=== PATIENT | female | born 1955 | race Caucasian/White ===

== ENCOUNTER → 2016-10-06 | Outpatient (CLI) | payer MEDICARE ==
--- NOTE | 2016-10-06 16:02 | BD ---
EXAMINATION TYPE: MG DEXA axial skeleton. DATE OF EXAM: 10/06/2016 10:13 AM COMPARISON: 2014 CLINICAL HISTORY: osteopenia, BREAST CA Height: 5'6 Weight: 225 FRAX RISK QUESTIONS: Alcohol (3 or more units per day): no Family History (Parent hip fracture): no Glucocorticoids (More than 3mos): no (Ex: prednisone, prednisolone, methylprednisolone, dexamethasone, and hydrocortisone). History of Fracture in Adulthood: no Secondary Osteoporosis: 1. Type 1 Diabetes: no 2. Hyperthyroidism: no 3. Menopause before 45: yes 4. Malnutrition: no 5. Chronic liver disease: no Rheumatoid Arthritis: no Current Tobacco Use: no RISK FACTORS HISTORY OF: Surgery to Hip(right/left)/ When: total hips 2010,2011 Family History of Osteoporosis: Postmenopausal woman: MEDICATIONS: Thyroid Medications: Which medication: synthroid How Lon years Additional Medications: blood pressure, cholesterol, Lasix Additional History: breast ca 2008, rufus mastectomy EXAM MEASUREMENTS: Bone mineral densitometry was performed using the [employer] System. Bone mineral density as measured about the Lumbar spine is: ----- L1-L4(G/cm2): 0.923 T Score Values are as follows: ----- L2: -1.9 ----- L3: -2.2 ----- L4: -2.3 ----- L1-L4: -2.1 Bone mineral density has: Decreased -1.3% since study of: 09/25/2014 IMPRESSION: Osteopenia (T Score between -2.5 and -1 as noted by T score valuesL1-L4 There is slightly increased risk of fracture and the patient may be considered for treatment. Re-Screen 1-2 years. NOTE: T-SCORE=SD OF THE YOUNG ADULT MEAN.
== END | disposition home or self-care (01) ==
LOC: RADBDWWP 09:51
PROVIDERS: ATTEND Internal Medicine Hematology & Oncology
DX: Z03.89 Encounter for observation for other suspected diseases and conditions ruled out (principal); M85.80 Other specified disorders of bone density and structure, unspecified site; C50.112 Malignant neoplasm of central portion of left female breast; N95.1 Menopausal and female climacteric states
CPT/HCPCS: 77080

== ENCOUNTER 2016-11-11 10:00 | Inpatient (IN) | payer MEDICARE ==
[2016-11-05 10:16] VITALS: BMI 35.2
--- NOTE | 2016-11-10 11:18 | HP ---
DATE OF ADMISSION: CHIEF COMPLAINT: Left shoulder pain. HISTORY OF PRESENT ILLNESS: The patient is a 61-year-old, right-hand dominant female on disability who presents with progressive left shoulder pain, worsening over the past several months. She is having a difficult time with any attempted use and at night. She has had multiple previous injections along with trying medications with only partial temporary relief. PAST MEDICAL HISTORY: Significant for arthritis, breast cancer, hypertension, renal disease, depression, neuropathy, fibromyalgia. PAST SURGICAL HISTORY: Significant for previous breast surgery along with left total hip arthroplasty. CURRENT MEDICATIONS: 1. Cymbalta. 2. Femara. 3. Lasix. 4. Neurontin. 5. Synthroid. 6. Zestril. 7. Tylenol. 8. Sherborn. 9. Zocor. 10. Xanax. She has allergies to SULFA. FAMILY HISTORY: Significant for heart disease, cancer and renal disease. SOCIAL HISTORY: Significant for tobacco use in addition to social alcohol use. Sixteen-point review of systems otherwise reviewed and is noncontributory. On examination, the patient is approximately 5 feet 7 inches, 220 pounds of endomorphic habitus. HEENT exam is nonfocal. Neck is supple. She is tender about the anterior left glenohumeral joint. She has moderate crepitus. Active range of motion, forward elevation 135 degrees, external rotation with arm at side 45 degrees, internal rotation to L1. Motor strength is 5 minus over 5 for abduction and external rotation. Griffin, Neer and speed tests are positive. Her distal neurovascular exam otherwise appears intact in the left upper extremity. Previous x-rays to include AP and scapular outlet views of the along with axillary lateral views of the left shoulder shows severe glenohumeral joint osteoarthrosis with [id number] changes. The humeral head to acromial distance appears to be maintained. IMPRESSIONS: Left severe glenohumeral joint osteoarthrosis. RECOMMENDATIONS: I talked to the patient at length regarding her treatment options. At this point, she is quite symptomatic and limited because of pain related to her osteoarthrosis. After thorough discussion, she opts to proceed with surgery. We will plan to proceed with left total shoulder arthroplasty. Risks and benefits are discussed at length in layman's terms. We will institute DVT prophylaxis postoperatively. The patient underwent preoperative medical evaluation by Dr. Claire.
[~2016-11-11 10:00] MED LIST: ACETAMINOPHEN TAB 500 MG TAB PO ONE; DEXAMETHASONE SOD PHOSPHATE 10 MG/ML 1 ML VIAL IV ONE; LACTATED RINGERS 1,000 ML IV SCH; MIDAZOLAM 2 MG/2 ML VIAL IV PRN; ONDANSETRON 4 MG/2 ML VIAL IVP ONE; Pre Op ABX Message 1 EACH MISC MISCELLANE ONE; TRANEXAMIC ACID 1,000 MG in SODIUM CHLORIDE 0.9% 100 ML IVPB ONE; ceFAZolin 2 GM in SODIUM CHLORIDE 0.9% 100 ML IVPB ONE
[2016-11-11] MEDS ORDERED: LIDOCAINE 1% 20 ML VIAL (10MG/ML) FOR IV START INTRADERMA ONE (11:29)
[2016-11-11] MEDS ORDERED: LIDOCAINE 1% INJ 10MG/ML (20 ML MDV) ONE (13:58)
[2016-11-11] MEDS ORDERED: NEOSTIGMINE 1 MG/ML 10 ML VIAL ONE (13:58)
[2016-11-11] MEDS ORDERED: TRANEXAMIC ACID 1,000 MG/10 ML VIAL ONE (13:58)
[2016-11-11] MEDS ORDERED: ePHEDrine 50 MG/ML 1 ML AMP ONE (13:58)
[2016-11-11] MEDS ORDERED: fentaNYL (PF) 50 MCG/ML 2 ML AMP ONE (13:58)
[2016-11-11] MEDS ORDERED: ROCURONIUM BROMIDE 10 MG/ML 10 ML VIAL IV ONE (13:58)
[2016-11-11] MEDS ORDERED: SODIUM CHLORIDE 0.9% 100 ML BAG ONE (13:58)
[2016-11-11] MEDS ORDERED: PROPOFOL 10 MG/ML 20 ML VIAL IV ONE (13:58)
[2016-11-11] MEDS ORDERED: SUCCINYLCHOLINE CHLORIDE 100 MG/5 ML SYR IV ONE (13:58)
[2016-11-11] MEDS ORDERED: diphenhydrAMINE 50 MG/ML 1 ML VIAL ONE (13:58)
[2016-11-11] MEDS ORDERED: MIDAZOLAM 2 MG/2 ML VIAL ONE (13:58)
[2016-11-11] MEDS ORDERED: GLYCOPYRROLATE 0.2 MG/ML 2 ML VIAL ONE (13:58)
[2016-11-11] MEDS ORDERED: PHENYLEPHRINE-0.9% NACL SYG 1 MG/10 ML SYRINGE ONE (13:58)
[2016-11-11] MEDS ORDERED: ceFAZolin 1,000 MG in SODIUM CHLORIDE 0.9% 1,000 ML IRRIGATION ONE (14:40)
[2016-11-11] MEDS ORDERED: SENNOSIDES-DOCUSATE SODIUM 1 EACH TAB PO PRN (15:45)
[2016-11-11] MEDS ORDERED: HYDROmorphone 1 MG/ML 1 ML SYRINGE IVP PRN ×2 (15:45)
[2016-11-11] MEDS ORDERED: ONDANSETRON 4 MG/2 ML VIAL IVP PRN (15:45)
[2016-11-11] MEDS ORDERED: HYDROcodone/APAP 7.5-325MG 1 EACH TAB PO PRN (15:50)
--- NOTE | 2016-11-11 16:12 | P.OP ---
Date of Procedure: 11/11/16 Preoperative Diagnosis: Severe left glenohumeral joint osteoarthrosis Postoperative Diagnosis: Same Procedure(s) Performed: Left total shoulder arthroplasty Implants: [employer] unite size 10 stem, 48 mm x 18 mm eccentric humeral head, 44 mm pegged cemented glenoid component. Anesthesia: SALVADORA Surgeon: Yadiel Resendiz Aligning Inspector #1: Luis F Mehta Estimated Blood Loss (ml): 150 Pathology: other (Humeral head) Condition: stable Disposition: PACU Indications for Procedure: The patient is a 61-year-old female who presents with progressive left shoulder pain secondary to osteoarthrosis despite conservative measures. A discussion of the risks and benefits of operative intervention versus continued conservative measures was made with the patient. She opted to proceed with surgery. Operative risks to include infection, neurovascular injury, development of blood clots, possible component loosening, possible dislocation need for subsequent procedures was discussed. Informed consent was obtained. Operative Findings: As below Description of Procedure: The patient was brought to the operating room, and after induction of general anesthesia was placed in a beachchair position. The bony prominences were appropriately padded. The left upper extremity was prepped and draped in normal fashion. A deltopectoral incision was then made starting lateral to the coracoid process extending in the deltopectoral interval. The skin was incised sharply. Subcutaneous tissues were divided bluntly. The deltopectoral interval was identified and the cephalic vein gently retracted laterally with the deltoid. Subdeltoid and subacromial adhesions were bluntly dissected. 1 cm of the upper pectoralis tendon was released to facilitate exposure. The clavipectoral fascia was opened and the conjoined tendon gently retracted medially. The biceps was identified in the bicipital groove opened. The rotator interval was opened. The biceps was then tenotomized and allowed to retract distally. A lesser tuberosity osteotomy was performed with a sagittal saw. The capsule was then released off the humeral head and neck sharply. Humeral head was fully exposed. Inferior osteophytes were carefully trimmed. The shoulder was gently dislocated. A starting hole was then made in line with the humeral shaft and bicipital groove. The canal was then hand reamed up to 10 mm. There is good distal fit and chatter. The cutting guide was then placed. This was flushed superiorly with the rotator insertion. I planned on 30 of retroversion. The cutting block was pinned in place. The humeral head cut was then made. The bone was removed in one fragment. Residual inferior osteophytes were removed flush with the cortical bone. Attention was then paid towards preparing the glenoid. A Fukuda retractor was placed posteriorly and a glenoid neck retractor anteriorly. The labrum was released from the 6:00 to 12 o'clock position. The biceps was released from the superior labrum. I then did a circumferential labral release. The glenoid sized at 44 mm. A threaded guidepin was then placed. A 44 mm reamer was utilized down to a bleeding bony surface. The central peg hole was drilled. The alignment guide was placed. The peripheral peg holes were drilled. The trial 44 mm component was placed and was fully seated. There is good anterior to posterior and superior to inferior fit. Trial component was then removed. The peripheral peg holes were pressurized with cement by hand. I bone grafted the central peg. The final 44 mm peg glenoid was inserted and was fully seated. This was held firmly until the cement had sufficiently hardened. The wound was irrigated with saline. Attention was then paid towards preparing the proximal humerus. I broached in 30 of retroversion with a size 10 broach and this was fully seated. There is good metaphyseal fit and rotational stability. A trial 48 x 18 mm eccentric head was placed. The shoulder was gently reduced. It was taken through range of motion. I good stability in flexion and extension with internal and external rotation. I felt there was adequate buddhism of soft tissue tension. The shoulder was gently dislocated. The trial components were removed. I Did Pl., #2, Ethibond suture laterally for reattachment of the lesser tuberosity. The size 10 stem was assembled and then inserted again and 30 of retroversion. Again there was good rotational stability. The eccentric 48 x 18 mm humeral head was placed and gently impacted. This was appropriately positioned. The shoulder was gently reduced. Again it was taken through range of motion felt to be stable in flexion and extension with internal and external rotation. Again I felt there is adequate buddhism of soft tissue tension. The wound was then again irrigated. Lesser tuberosity was reattached with #2 Ethibond suture. The rotator interval was closed with running #2 Ethibond suture. The deltopectoral interval was closed with interrupted 2-0 Vicryl sutures. The subcutaneous tissues reapproximated interrupted 2-0 Vicryl sutures. The skin was reapproximated 3-0 subcuticular strata fix suture. Skin tape and adhesive was applied as well as a sterile dressing and sling. The patient was awoken from general anesthesia and transferred to recovery room in good condition. Blood loss was estimated at 150 mL. No complications were incurred. Sponge and needle counts were correct at the end the case.
[2016-11-11] MEDS: HYDROmorphone 1 MG/ML 1 ML SYRINGE IVP PRN ×3 (16:26→16:48)
--- NOTE | 2016-11-11 16:27 | XR ---
EXAMINATION TYPE: XR shoulder complete LT DATE OF EXAM: 11/11/2016 4:21 PM CLINICAL HISTORY: post op total shoulder arthroplasty TECHNIQUE: Portable view of the left shoulder COMPARISON: None. FINDINGS: Noted are changes of total left shoulder arthroplasty. Prosthesis appears to be well placed in alignment is in near anatomic position. IMPRESSION: Appropriate postoperative alignment.
[2016-11-11] MEDS: LACTATED RINGERS 1,000 ML IV SCH (17:07)
[2016-11-11] MEDS ORDERED: ALPRAZolam 0.25 MG TAB PO PRN (17:20)
[2016-11-11] MEDS ORDERED: BUTALB/APAP/CAFF 50-325-40MG TAB PO PRN (17:20)
[2016-11-11] MEDS: FUROSEMIDE 40 MG TAB PO SCH (18:33)
[2016-11-11] MEDS: HYDROcodone/APAP 7.5-325MG 1 EACH TAB PO PRN (18:42)
[2016-11-11] MEDS: ATORVASTATIN 10 MG TAB PO SCH (20:30)
[2016-11-11] MEDS: CYCLOBENZAPRINE 10 MG TAB PO SCH (20:31)
[2016-11-11] MEDS: GABAPENTIN 300 MG CAP PO SCH (20:31)
[2016-11-11] MEDS: ASCORBIC ACID 500 MG TAB PO SCH (20:31)
[2016-11-11] MEDS: CALCIUM CARB-VIT D 500MG-200UN 1 EACH TAB PO SCH (20:31)
[2016-11-11] MEDS: DULoxetine HCL 60 MG CAPSULE.DR PO SCH (20:32)
[2016-11-11] MEDS: LETROZOLE 2.5 MG TAB PO SCH (20:33)
[2016-11-11] MEDS: diphenhydrAMINE 25 MG CAP PO SCH (20:34)
[2016-11-11] MEDS: ceFAZolin 2 GM in SODIUM CHLORIDE 0.9% 100 ML IVPB SCH (22:41)
[2016-11-12] MEDS: HYDROcodone/APAP 7.5-325MG 1 EACH TAB PO PRN ×5 (00:06→21:20)
[2016-11-12] MEDS: hydrOXYzine PAMOATE 25 MG CAP PO PRN ×2 (00:07→05:22)
[2016-11-12] MEDS: LACTATED RINGERS 1,000 ML IV SCH (05:26)
[2016-11-12] MEDS: LEVOTHYROXINE 100 MCG TAB PO SCH (06:06)
[2016-11-12 08:19] LABS: Basophils % (A) 0 %; CH 31.3; CHCM 34.6; Eosinophils # (A) 0.1 k/uL (0-0.7); Eosinophils % (A) 1 %; HCT 35.1 % (34.0-46.0); HDW 2.33; HGB 12.1 gm/dL (11.4-16.0); Luc # (Auto) 0.28; Luc % (Auto) 3; Lymphocytes # (A) 1.4 k/uL (1.0-4.8); Lymphocytes % (A) 16 %; MCH 31.4 pg (25.0-35.0); MCHC 34.6 g/dL (31.0-37.0); MCV 90.9 fL (80.0-100.0); Mean Platelet Volume 7.9; Monocytes # (A) 0.6 k/uL (0-1.0); Monocytes % (A) 7 %; Neutrophils # (A) 6.7 k/uL (1.3-7.7); Neutrophils % (A) 73 %; RBC 3.86 m/uL (3.80-5.40); RDW 12.4 % (11.5-15.5); WBC 9.1 k/uL (3.8-10.6); WBC (Perox) 8.84
[2016-11-12] MEDS: ceFAZolin 2 GM in SODIUM CHLORIDE 0.9% 100 ML IVPB SCH (08:50)
[2016-11-12] MEDS: DULoxetine HCL 60 MG CAPSULE.DR PO SCH ×2 (08:52→21:24)
[2016-11-12] MEDS: GABAPENTIN 300 MG CAP PO SCH ×2 (08:52→21:23)
[2016-11-12] MEDS: FUROSEMIDE 40 MG TAB PO SCH ×2 (08:52→16:47)
[2016-11-12] MEDS: CHOLECALCIFEROL 1,000 UNIT TAB PO SCH (08:52)
[2016-11-12] MEDS: ASCORBIC ACID 500 MG TAB PO SCH ×2 (08:52→22:55)
[2016-11-12] MEDS: LISINOPRIL 10 MG TAB PO SCH (08:54)
[2016-11-12] MEDS: PANTOPRAZOLE 40 MG TABLET PO SCH (08:54)
[2016-11-12] MEDS ORDERED: LORATADINE-PSEUDOEPH 5-120 MG 1 EACH TAB.ER.12H PO PRN (09:00)
[2016-11-12] MEDS ORDERED: MULTIVITAMINS, THERA 1 EACH TAB PO SCH (12:00)
--- NOTE | 2016-11-12 12:35 | P.PN ---
Subjective Principal diagnosis: Status post total left shoulder arthroplasty Patient is seen today resting in her hospital bed. She appears comfortable, her pain is controlled. Patient's utilizing the arm sling at this time. She denies headaches, lightheadedness, chest pain, shortness of breath, nausea vomiting. Objective - Vital Signs Vital signs: Vital Signs Temp 98.4 F 11/12/16 07:40 Pulse 101 H 11/12/16 07:40 Resp 17 11/12/16 07:40 BP 109/73 11/12/16 07:40 Pulse Ox 95 11/12/16 07:40 Intake & Output 11/11/16 11/12/16 11/12/16 18:59 06:59 18:59 Intake Total 1301 990 360 Output Total 300 1450 400 Balance 1001 -460 -40 Weight 102.058 kg Intake: IV 1301 400 Lactated Ringers 1,000 ml 400 @ 50 mls/hr IV .Q20H ROCAEL Rx#:[id number] Oral 590 360 Output: Urine 150 1450 400 Uretheral (Ozuna) 1450 Estimated Blood Loss 150 Other: Voiding Method Indwelling Catheter Indwelling Catheter # Voids 1 - Exam Left upper extremity: incision is clean, dry and intact. Minimal ecchymosis and soft tissue swelling present of the left upper extremities. Flexion-extension is present at the elbow. extension and flexion are present at the wrist, she can move all the fingers, she can make a fist. Her radial pulses 2+. She noted some occasional paresthesias in the palmar hand. Sensation to light touch is intact throughout the upper extremity. - Labs CBC & Chem 7: 11/12/16 07:10 Assessment and Plan Plan: Assessment: 1. Postop day #1 status post left total shoulder arthroplasty Plan: 1. Pain control, continue supportive oral medications 2. Utilize arm sling 3. Daily dressing changes/ice the upper extremity 4. PT evaluation for pendular exercises 5. GI and DVT prophylaxis, continue Xarelto 10 mg 6. Medical recommendations 7. Discharge planning: Patient may be discharged home today Time with Patient: Less than 30
--- NOTE | 2016-11-12 12:37 | P.DS ---
Providers Date of admission: 11/11/16 11:20 Expected date of discharge: 11/13/16 Attending physician: Yadiel Resendiz Consults: 11/11/16 15:45 Consult Physician Routine Consulting Provider: Dale Herrera Consult Reason/Comments: Medical management Do you want consulting provider notified?: Yes Primary care physician: [facility] Course: Date of admission: 11/11/2016 Date of discharge: 11/13/2016 Admission diagnosis: Status post left total shoulder arthroplasty Discharge diagnosis: Same Attending physician: Dr. Resendiz Surgical procedures: Left total shoulder arthroplasty Brief history: Patient is a 61-year-old female with a history of progressive primary left shoulder arthritis. At this point patient has failed conservative treatment measures and has opted to proceed with a elective left total shoulder arthroplasty. Hospital course: Details of patient's surgery can be found in operative report. Patient tolerated the procedure well and was subsequently transported to orthopedic floor. Patient's orthopeidc and medical care was provided daily. Patient had daily laboratory tests performed for evaluation of overall blood counts. Patient had daily physical therapy to include strengthening range of motion as well as education with walker ambulation. Patient was treated with Xarelto for their postoperative DVT prophylaxis during their inpatient stay. Patient was noted to have a relatively uneventful postoperative course. Patient reported satisfactory pain control with oral pain medications by postoperative day 0. Patient showed satisfactory progress with physical therapy. Patient moved steadily through the program and had no difficulty meeting the goals by postoperative day 2. Given patient's otherwise satisfactory course and having met physical therapy goals, plan is to discharge patient home on postoperative day 2. Discharge condition/disposition: Patient will be discharged home in stable condition. Discharge medications: Instructions are given on resumption of patient's normal daily medications per primary care recommendation, in addition patient will be prescribed Slaughter 7.5 mg/325 mg, Colace 100 mg, Xarelto 10 mg. Discharge instructions: 1. Wound care and infection precautions, keep incision dry and covered while showering, no lotions, creams, moisturizers. No soaking, tubs, pools, hottubs. Do not scrub over the incision. 2. Utilize arm sling and pendular exercises 3. Ice and elevate when necessary. Do not exceed 20 minutes per hour with ice pack. 4. Utilize compression sleeve until seen at first follow up appointment. 5. Visiting nursing care. 6. Home physical therapy. 7. Pain meds and anticoagulants per prescription. 8. Pain medication has potential to cause constipation. Increase oral fluid and fiber intake. Contact primary care provider if you have not had a bowel movement within 48 hours after discharge 9. No anti-inflammatory medication until discussed at first post operative visit, this including Motrin, Aleve, Mobic, Diclofenac. 10. Follow up in office at 2 weeks postop with Liborio Mehta PA-C 11. Follow up with your primary care doctor 7-10 days after discharge. 12. Contact [facility] with any questions, . Procedures: Left total shoulder arthroplasty Patient Condition at Discharge: Good Plan - Discharge Summary New Discharge Prescriptions: Docusate [Colace] 100 mg PO DAILY #30 capsule HYDROcodone/APAP 7.5-325MG [Slaughter 7.5] 1 - 2 each PO Q6HR PRN #60 tab PRN Reason: Pain Rivaroxaban [Xarelto] 10 mg PO DAILY #12 tab Discharge Medication List Acetaminophen Tab [Tylenol Tab] 1,000 mg PO Q6HR PRN 12/29/14 [History] Ascorbic Acid [Vitamin C] 500 mg PO BID 12/29/14 [History] Fexofenadine/Pseudoephedrine [Calista-D 12 Hour Tablet] 1 tab PO QAM PRN [History] Furosemide [Lasix] 40 mg PO BID 12/29/14 [History] Gabapentin [Neurontin] 300 mg PO QAM 12/29/14 [History] Letrozole [Femara] 2.5 mg PO HS 12/29/14 [History] Levothyroxine Sodium [Synthroid] 100 mcg PO DAILY 12/29/14 [History] Lisinopril [Prinivil] 10 mg PO DAILY 12/29/14 [History] Multivitamins, Thera [Theragran] 1 tab PO DAILY 12/29/14 [History] Simvastatin [Zocor] 20 mg PO HS 12/29/14 [History] diphenhydrAMINE HCL [Benadryl] 25 mg PO HS 12/29/14 [History] ALPRAZolam [Xanax] 0.25 mg PO BID PRN 06/02/16 [History] Butalb/Acetaminophen/Caffeine [Fioricet 50-325-40] 1 - 2 tab PO Q8H PRN [History] Ca/D3/Mag#11/Zinc/Brush Cutter/Kevin/Bor [Caltrate 600+D Plus Tablet] 2 tab PO HS [History] Cholecalciferol [Vitamin D3] 1,000 unit PO DAILY 06/02/16 [History] DULoxetine HCL [Cymbalta] 60 mg PO BID 06/02/16 [History] Gabapentin [Neurontin] 600 mg PO HS 06/02/16 [History] HYDROcodone/APAP 7.5-325MG [Slaughter 7.5-325] 1 tab PO DAILY PRN 06/02/16 [History] Cyclobenzaprine [Flexeril] 10 mg PO HS 11/05/16 [History] Omeprazole 20 mg PO DAILY 11/05/16 [History] Rivaroxaban [Xarelto] 10 mg PO DAILY #12 tab 11/11/16 [Rx] Docusate [Colace] 100 mg PO DAILY #30 capsule 11/13/16 [Rx] HYDROcodone/APAP 7.5-325MG [Slaughter 7.5] 1 - 2 each PO Q6HR PRN #60 tab 11/13/16 [ Rx] Follow up Appointment(s)/Referral(s): Luis F Mehta PAC [PHYSICIAN WEB EDITOR] - 2 Weeks Activity/Diet/Wound Care/Special Instructions: Orthopedic Discharge Instructions: 1. Wound care and infection precautions, keep incision dry and covered while showering, no lotions, creams, moisturizers. No soaking, pools, hot tubs. Do not scrub over incision. 2. Utilize arm sling, utilized pendular exercises daily 3. Ice and elevate when necessary. Do not exceed 20 minutes per hour with ice pack. 4. Utilize compression sleeve until seen at first follow up appointment. 5. Visiting nursing care. 6. Home physical therapy. 7. Pain meds and anticoagulants per prescription. 8. Pain medication has potential to cause constipation. Increase oral fluid and fiber intake. Contact primary care provider if you have not had a bowel movement within 48 hours after discharge. 9. No anti-inflammatory medication until discussed at first post operative visit, this including Motrin, Aleve, Mobic, Diclofenac. 10. Follow up in office at 2 weeks postop with Liborio Branch PA-C 11. Follow up with your primary care doctor 7-10 days after discharge. 12. Contact [facility] with any questions, . Discharge Disposition: HOME WITH HOME HEALTH SERVICES
--- NOTE | 2016-11-12 13:06 | CONS ---
DATE OF CONSULTATION: 11/12/2016 REASON FOR CONSULTATION: Medical management requested by Dr. Resendiz. CONSULTATION: This is a very pleasant 61-year-old patient of Dr. Claire who has undergone a left total shoulder arthroplasty, having some pain in the shoulder and left elbow. No nausea or vomiting. Did tolerate her breakfast, has been out of bed. Patient's chronic stable medical conditions include fibromyalgia, GERD, hyperlipidemia, osteoarthritis, obstructive sleep apnea, uses CPAP machine, peripheral neuropathy, hepatitis C in the remote past, anxiety, depression, controlled. Denies any chest pain or shortness of breath, comfortable. REVIEW OF SYSTEMS: CONSTITUTIONAL: None. HEENT: None. RESPIRATORY: None. CARDIOVASCULAR: None. GASTROINTESTINAL: Heartburn. GENITOURINARY: None. MUSCULOSKELETAL: Pain at the surgical site. HEMATOLOGICAL: None. LYMPHATICS: None. PSYCHIATRY: Anxiety, depression, controlled. NEUROLOGICAL: Numbness and tingling in the feet. PAST MEDICAL HISTORY: Fibromyalgia, GERD, hypertension, hyperlipidemia, osteoarthritis, obstructive sleep apnea uses CPAP machine, peripheral neuropathy, hepatitis C in the remote past, bilateral breast cancer treated with surgery, anxiety, depression. PAST SURGICAL HISTORY: Bilateral mastectomy, cardiac ablation, hysterectomy, tonsillectomy, bilateral hip replacement, breast implants, bilateral mastectomy, right rotator cuff repair, mole removed from the cheek as an . Past medical history also includes migraines, SVT, hepatitis C in 1971, environmental allergies. PAST PSYCH HISTORY: Anxiety, depression. SOCIAL HISTORY: Patient stopped smoking in 1997. . Family history of cancer, type unknown. HOME MEDICATIONS: 1. Benadryl 25 mg p.o. q.h.s. 2. Zocor 20 mg p.o. q.h.s. 3. Omeprazole 20 mg p.o. daily. 4. Theragran 1 tablet p.o. daily. 5. Prinivil 10 mg p.o. daily. 6. Synthroid 100 mcg p.o. daily. 7. Femara 2.5 mg p.o. q.h.s. 8. Spencer 7.5 one tablet p.o. daily p.r.n. 9. Neurontin 600 mg p.o. q.h.s., 300 mg in the morning. 10. Lasix 40 mg p.o. b.i.d. 11. Calista-D 1 tablet p.o. q.a.m. p.r.n. 12. Cymbalta 60 mg p.o. b.i.d. 13. Flexeril 10 mg q.h.s. 14. Vitamin D3 one thousand units p.o. daily. 15. Caltrate D 2 tablets p.o. q.h.s. 16. Fioricet 1 to 2 tablets p.o. q.8 p.r.n. 17. Vitamin C 500 mg p.o. b.i.d. 18. Tylenol 1000 mg p.o. q.6 p.r.n. 19. Xanax 0.25 mg p.o. b.i.d. p.r.n. 20. Xarelto 10 mg p.o. daily. Allergies to SULFA and NSAIDS. On examination, temperature 98.4, pulse 100, respiration 17, blood pressure 111/73, pulse ox 95% on 2 L. GENERAL: Lying in bed, comfortable. EYES: Pupils equal. Conjunctivae normal. HEENT: Oral cavity normal. NECK: JVD not raised. Mass not palpable. Respiratory effort normal. LUNGS: Fair air entry. CARDIOVASCULAR: First and second sounds normal. No edema. ABDOMEN: Soft, nontender. Liver and spleen not palpable. LYMPHATIC: No lymph nodes palpable in the neck and right axillae. PSYCHIATRY: Alert and oriented x3. Mood and affect normal. EXTREMITIES: Left shoulder in a dressing, left arm is a sling. Patient has got good movement in the left hand and fingers. INVESTIGATIONS: White count 9.1, hemoglobin 12.1. ASSESSMENT: 1. Left total shoulder arthroplasty. 2. Chronic fibromyalgia. 3. Gastroesophageal reflux disease. 4. Essential hypertension. 5. Obstructive sleep apnea, uses CPAP machine. 6. Peripheral neuropathy, idiopathic. 7. Bilateral breast cancer, history of. 8. Anxiety, depression, not otherwise specified. PLAN: Continue current medication and treatment plan. DVT prophylaxis, Venodyne boots in place. Care was discussed with the patient. She should follow up with the family doctor when discharged. Thank you, Dr. Resendiz.
[2016-11-12] MEDS: traMADol 50 MG TAB PO SCH ×3 (14:25→22:55)
[2016-11-12] MEDS: LETROZOLE 2.5 MG TAB PO SCH (21:22)
[2016-11-12] MEDS: CALCIUM CARB-VIT D 500MG-200UN 1 EACH TAB PO SCH (21:22)
[2016-11-12] MEDS: CYCLOBENZAPRINE 10 MG TAB PO SCH (21:23)
[2016-11-12] MEDS: ATORVASTATIN 10 MG TAB PO SCH (21:24)
[2016-11-12] MEDS: diphenhydrAMINE 25 MG CAP PO SCH (22:55)
[2016-11-13] MEDS: HYDROcodone/APAP 7.5-325MG 1 EACH TAB PO PRN (06:01)
[2016-11-13] MEDS: LEVOTHYROXINE 100 MCG TAB PO SCH (06:01)
[2016-11-13 08:10] VITALS: BP 115/78; PULSE 100; RESP 17; TEMP 98.3
[2016-11-13] MEDS: FUROSEMIDE 40 MG TAB PO SCH (08:21)
[2016-11-13] MEDS: PANTOPRAZOLE 40 MG TABLET PO SCH (08:21)
[2016-11-13] MEDS: CHOLECALCIFEROL 1,000 UNIT TAB PO SCH (08:22)
[2016-11-13] MEDS: ASCORBIC ACID 500 MG TAB PO SCH (08:22)
[2016-11-13] MEDS: DULoxetine HCL 60 MG CAPSULE.DR PO SCH (08:22)
[2016-11-13] MEDS: GABAPENTIN 300 MG CAP PO SCH (08:22)
[2016-11-13] MEDS: LISINOPRIL 10 MG TAB PO SCH (08:23)
[2016-11-13] MEDS: traMADol 50 MG TAB PO SCH (08:27)
--- NOTE | 2016-11-13 09:17 | P.PN ---
Subjective Principal diagnosis: Status post total left shoulder arthroplasty Patient is seen today resting in her hospital bed. She appears comfortable, her pain is controlled. Patient's utilizing the arm sling at this time. She denies headaches, lightheadedness, chest pain, shortness of breath, nausea vomiting. Objective - Vital Signs Vital signs: Vital Signs Temp 98.3 F 11/13/16 07:00 Pulse 100 11/13/16 07:00 Resp 17 11/13/16 07:00 BP 115/78 11/13/16 07:00 Pulse Ox 93 L 11/13/16 07:00 Intake & Output 11/12/16 11/13/16 11/13/16 18:59 06:59 18:59 Intake Total 840 590 Output Total 1000 Balance -160 590 Weight 102.058 kg Intake: Oral 840 590 Output: Urine 1000 Other: Voiding Method Indwelling Catheter # Voids 1 - Exam Left upper extremity: incision is clean, dry and intact. Minimal ecchymosis and soft tissue swelling present of the left upper extremities. Flexion-extension is present at the elbow. extension and flexion are present at the wrist, she can move all the fingers, she can make a fist. Her radial pulses 2+. She noted some occasional paresthesias in the palmar hand. Sensation to light touch is intact throughout the upper extremity. - Labs CBC & Chem 7: 11/12/16 07:10 Assessment and Plan Plan: Assessment: 1. Postop day #2 status post left total shoulder arthroplasty Plan: 1. Pain control, will dc home on oral medication 2. Utilize arm sling 3. Daily dressing changes/ice the upper extremity 4. PT evaluation for pendular exercises 5. GI and DVT prophylaxis, continue Xarelto 10 mg 6. Medical recommendations 7. Discharge planning: Patient will be dc home today Time with Patient: Less than 30
--- NOTE | 2016-11-17 10:01 | PN ---
DATE OF SERVICE: 11/13/2016 PRESENTING COMPLAINT: Shoulder surgery. INTERVAL HISTORY: This patient was seen by me on 11/13/16 status post shoulder surgery. Doing better. Pain is better controlled. Tolerating a diet. No nausea, vomiting. Has been out of bed. Review of systems done for constitutional, cardiovascular, GI, pulmonary; relevant findings as above. Current medications are reviewed. On examination, temperature 98.3, pulse 100, respirations 17, blood pressure 115/78, pulse ox 93% on 2 L. GENERAL APPEARANCE: Sitting up, comfortable. EYES: Pupils equal. Conjunctivae normal. NECK: JVD not raised. Mass not palpable. RESPIRATORY: Effort normal. Lungs are clear. CARDIOVASCULAR: First and second sounds normal. No edema. ABDOMEN: Soft, nontender. Liver and spleen not palpable. PSYCHIATRY: Alert and oriented x3. Mood and affect normal. Left shoulder in a dressing and sling. INVESTIGATIONS: No blood work from today. ASSESSMENT: 1. Left total shoulder arthroplasty. 2. Chronic fibromyalgia. 3. Gastroesophageal reflux disease. 4. Essential hypertension. 5. Obstructive sleep apnea, uses CPAP machine. 6. Peripheral neuropathy, idiopathic. 7. Bilateral breast cancer, history of. 8. Anxiety, depression, not otherwise specified. PLAN: Continue current medication and treatment plan. Care was discussed with the patient.
== END 2016-11-13 11:20 | disposition home or self-care (01) | DRG 483 ==
LOC: 2ORMAIN 11:20 → 3SUR 15:45
PROVIDERS: ADMIT Orthopaedic Surgery; ATTEND Orthopaedic Surgery
PROC: 0RRK0JZ Replacement of Left Shoulder Joint with Synthetic Substitute, Open Approach (ICD-10-PCS; principal; 2016-11-11 13:10)
DX: M19.012 Primary osteoarthritis, left shoulder (principal); G62.9 Polyneuropathy, unspecified; I10 Essential (primary) hypertension; F32.9 Major depressive disorder, single episode, unspecified; E78.5 Hyperlipidemia, unspecified; F41.9 Anxiety disorder, unspecified; G47.33 Obstructive sleep apnea (adult) (pediatric); K21.9 Gastro-esophageal reflux disease without esophagitis; M79.7 Fibromyalgia; Z72.0 Tobacco use; Z79.01 Long term (current) use of anticoagulants; Z79.899 Other long term (current) drug therapy; Z85.3 Personal history of malignant neoplasm of breast; Z88.2 Allergy status to sulfonamides; Z98.82 Breast implant status
CPT/HCPCS: 85025; 88305; 88311; 88341; 88342; 94760

== ENCOUNTER → 2017-01-28 | Outpatient (CLI) | payer MEDICARE ==
[2017-01-28 10:23] LABS: ALT 39 U/L (9-52); AST 31 U/L (14-36); Alkaline Phosphatase 93 U/L (38-126); Anion Gap 12 mmol/L; Blood Urea Nitrogen 26 mg/dL (7-17); Calcium 10.2 mg/dL (8.4-10.2); Carbon Dioxide 29 mmol/L (22-30); Chloride 101 mmol/L (98-107); Cholesterol 204 mg/dL (<200); Glucose 94 mg/dL (74-99); HDL Cholesterol 70 mg/dL (40-60); Non-African American GFR(MDRD) 47 (>60 ml/min/1.73 sqM); Potassium 4.8 mmol/L (3.5-5.1); Sodium 142 mmol/L (137-145); Total Bilirubin 0.7 mg/dL (0.2-1.3); Total Protein 8.1 g/dL (6.3-8.2); Triglycerides 137 mg/dL (<150)
[2017-01-28 11:10] LABS: Hepatitis C Virus IgG Ab Negative (Negative); Hepatitis C Virus IgG Index 0.02
== END | disposition home or self-care (01) ==
LOC: LABWHC1 09:29
PROVIDERS: ATTEND Family Medicine
DX: E03.9 Hypothyroidism, unspecified (principal); I10 Essential (primary) hypertension
CPT/HCPCS: 36415; 80053; 80061; 84439; 84443; 84481; 86803

== ENCOUNTER → 2017-09-09 | Outpatient (CLI) | payer MEDICARE ==
[2017-09-09 11:25] LABS: HGB 14.5 gm/dL (11.4-16.0); MCH 29.7 pg (25.0-35.0); MCV 89.8 fL (80.0-100.0); Platelet Count 336 k/uL (150-450); RBC 4.89 m/uL (3.80-5.40); RDW 12.3 % (11.5-15.5); WBC 8.3 k/uL (3.8-10.6)
== END | disposition home or self-care (01) ==
LOC: LABWHC1 11:00
PROVIDERS: ATTEND Psychiatry & Neurology Psychiatry
DX: N18.3 Chronic kidney disease, stage 3 (moderate) (principal)
CPT/HCPCS: 36415; 82565; 84520; 85027

== ENCOUNTER 2018-01-22 12:17 | Emergency (ER) | payer MEDICARE ==
[2018-01-22 13:01] VITALS: RESP 18
--- NOTE | 2018-01-22 13:48 | ED ---
General Adult HPI - General Source: patient Mode of arrival: ambulatory Limitations: no limitations <Antonio Samayoa - Last Filed: 01/22/18 13:44> <Georgina Nguyen - Last Filed: 01/22/18 15:41> - General Chief complaint: Fall Stated complaint: fall head,arms, knees Time Seen by Provider: 01/22/18 13:41 - History of Present Illness Initial comments: Patient is a 62-year-old female presents emergency Department after running and falling down her driveway. She reports that she was chasing after her lawnmower that was unusual and backing down a driveway. Patient states that she fell on her knees and her left ribs. She also hit the left side of her forehead and has an abrasion and cut over the forearm. She complains of pain over the nose, and cheek area. She denies any loss of consciousness. Denies neck pain. (Georgina Nguyen) - Related Data Home Medications Medication Instructions Recorded Confirmed Fexofenadine/Pseudoephedrine 1 tab PO QAM PRN 12/29/14 01/22/18 [Calista-D 12 Hour Tablet] Furosemide [Lasix] 40 mg PO BID 12/29/14 01/22/18 Letrozole [Femara] 2.5 mg PO HS 12/29/14 01/22/18 Lisinopril [Prinivil] 10 mg PO BID 12/29/14 01/22/18 Multivitamins, Thera [Multivitamin 1 tab PO DAILY 12/29/14 01/22/18 (formulary)] diphenhydrAMINE HCL [Benadryl] 25 mg PO HS 12/29/14 01/22/18 Butalb/Acetaminophen/Caffeine 1 - 2 tab PO Q8H PRN 06/02/16 01/22/18 [Fioricet 50-325-40] DULoxetine HCL [Cymbalta] 60 mg PO BID 06/02/16 01/22/18 HYDROcodone/APAP 7.5-325MG [[place] 1 tab PO DAILY PRN 06/02/16 01/22/18 7.5-325] Flaxseed Oil [[place]-3 Flaxseed Oil] 1,000 mg PO DAILY 01/22/18 01/22/18 Levothyroxine Sodium [Synthroid] 175 mcg PO DAILY 01/22/18 01/22/18 Lutein 10 mg PO DAILY 01/22/18 01/22/18 Simvastatin [Zocor] 10 mg PO HS 01/22/18 01/22/18 Allergies Allergy/AdvReac Type Severity Reaction Status Date / Time Sulfa (Sulfonamide Allergy Unknown Verified 01/22/18 14:07 Antibiotics) Childhood NSAIDS (Non-Steroidal AdvReac Causes Verified 01/22/18 14:07 Anti-Inflamma Kidney Failure Review of Systems ROS Other: All systems not noted in ROS Statement are negative. <Antonio Samayoa - Last Filed: 01/22/18 13:44> ROS Other: All systems not noted in ROS Statement are negative. <Georgina Nguyen - Last Filed: 01/22/18 15:41> ROS Statement: Those systems with pertinent positive or pertinent negative responses have been documented in the HPI. Past Medical History Past Medical History: Cancer, Fibromyalgia, GERD/Reflux, Hyperlipidemia, Hypertension, Neurologic Disorder, Osteoarthritis (OA), Sleep Apnea/CPAP/BIPAP, Supraventricular Tachycardia (SVT), Thyroid Disorder Additional Past Medical History / Comment(s): Peripheral neuropathy; Hepatitis C 1972; breast cancer, MIGRAINES, SVT RESOLVED WITH ABLATION, USES BIPAP, CHRONIC SINUSITIS AND ENVIRONMENTAL ALLERGIES, History of Any Multi-Drug Resistant Organisms: None Reported Past Surgical History: Breast Surgery, Cardiac Ablation, EPS, Hysterectomy, Joint Replacement, Orthopedic Surgery, Tonsillectomy Additional Past Surgical History / Comment(s): Román hip replacement; breast implants; bilateral mastectomy. COLONOSCOPY, RT ROTATOR CUFF REPAIR, [facility], tls Past Anesthesia/Blood Transfusion Reactions: Motion Sickness, Postoperative Nausea & Vomiting (PONV) Past Psychological History: Anxiety, Depression Smoking Status: Former smoker Past Alcohol Use History: Occasional Past Drug Use History: None Reported - Past Family History Sister(s) Family Medical History: Cancer <Antonio Samayoa - Last Filed: 01/22/18 13:44> General Exam Limitations: no limitations <Antonio Samayoa - Last Filed: 01/22/18 13:44> General appearance: alert, in no apparent distress Head exam: Present: atraumatic, normocephalic, normal inspection, other ( Contusion over left forehead.) Eye exam: Present: normal appearance, PERRL, EOMI. Absent: scleral icterus, conjunctival injection, periorbital swelling ENT exam: Present: normal exam, mucous membranes moist Neck exam: Present: normal inspection. Absent: tenderness, meningismus, lymphadenopathy Respiratory exam: Present: normal lung sounds bilaterally Cardiovascular Exam: Present: regular rate, normal rhythm, normal heart sounds. Absent: systolic murmur, diastolic murmur, rubs, gallop, clicks GI/Abdominal exam: Present: soft, normal bowel sounds. Absent: distended, tenderness, guarding, rebound, rigid Extremities exam: Present: normal inspection, full ROM, normal capillary refill , other (Patient has abrasions over bilateral knees. Abrasion over the left elbow.). Absent: tenderness, pedal edema, joint swelling, calf tenderness Back exam: Present: normal inspection Neurological exam: Present: alert, oriented X3, CN II-XII intact Psychiatric exam: Present: normal affect, normal mood Skin exam: Present: warm, dry, intact, normal color. Absent: rash <Georgina Nguyen - Last Filed: 01/22/18 15:41> - General Exam Comments Initial Comments: Patient is a pleasant 62-year-old female. Alert and oriented. No significant distress. (Georgina Nguyen) Vital Signs 01/22/18 12:57 Temperature 98.2 F Pulse Rate 83 Respiratory 18 Rate Blood Pressure 124/76 O2 Sat by Pulse 98 Oximetry Medical Decision Making <Antonio Samayoa - Last Filed: 01/22/18 13:44> - Radiology Data Radiology results: report reviewed <Georgina Nguyen - Last Filed: 01/22/18 15:41> - Medical Decision Making 62-year-old female presents emergency Department after a fall. Has abrasions over bilateral knees and left elbow. She denies of left rib pain. She also has pain over the left cheek. Elbow x-rays are performed and showed no evidence of any fractures. Left rib x-ray shows no fracture. CT brain and C- spine and face were negative for any facial fractures or abnormalities. Patient informed of all these results. We'll discharge with follow-up with PCP. Wounds were cleaned and dressed with bandages. (Georgina Nguyen) - Radiology Data No acute cardiopulmonary process.Rib fracture. Patient's left shoulder arthroplasty appears line. Small knee joint effusions in both sides. Trichomonas departmental lost her arthritis. No acute osseous normality seen on either knee. There is no acute fracture dislocation evident the cervical spine. No acute intracranial hemorrhage, mass effect or midline shift seen. No acute facial bone fracture or dislocation is evident. No acute fracture dislocation any oral blood. (Georgina Nguyen) Disposition <Antonio Samayoa - Last Filed: 01/22/18 13:44> Is patient prescribed a controlled substance at d/c from ED?: No When asked, does pt state using other controlled substances?: No If prescribed controlled substance>3 days was MAPS reviewed?: No If opioid is for acute pain is fill amount 7 days or less?: No If Rx opioid, was Start Talking consent form obtained?: No Time of Disposition: 15:40 <Georgina Nguyen - Last Filed: 01/22/18 15:41> Clinical Impression: Fall, Contusion, multiple sites, Contusion of rib on left side, Facial contusion Disposition: HOME SELF-CARE Condition: Good Instructions: Fall Prevention for Older Adults (ED), Rib Contusion (ED) Additional Instructions: Keep the abrasions covered. Monitor for any signs of infection including redness swelling or drainage. Return to the emergency department if any alarming signs or symptoms occur. Motrin Tylenol for pain. Referrals: Yadiel Resendiz MD [STAFF PHYSICIAN] - 1-2 days
--- NOTE | 2018-01-22 14:43 | CT ---
EXAMINATION TYPE: CT brain cspine wo con, CT facial bones wo con DATE OF EXAM: 01/22/2018 COMPARISON: CT brain December 29, 2014 HISTORY: Patient complains of fall today landing on forehead/left cheek. Laceration and contusion at site. Headache and facial and neck Pain CT DLP: 1224.9 (accession [id number]), 609.4 (accession [id number]) mGycm. Automated Exposure Control for Dose Reduction was Utilized. TECHNIQUE: CT scan of the head, facial bones, and cervical spine are performed without contrast. FINDINGS: There is no acute intracranial hemorrhage, mass effect, or midline shift identified. The ventricles and sulci are within normal limits in size. The calvarium is intact. Nasal bones are intact. Orbital floors and hodgson are intact. The globes are intact bilaterally. Intra conal fat is preserved bilaterally. The zygomatic arches are intact bilaterally. The mandible is inta ct. Temporomandibular joints are maintained bilaterally. The pterygoid plates are intact. The paranas al sinuses are clear. Small area of focal soft tissue swelling over the left frontal sinus is felt pr esent near axial image 67. Cervical spine is visualized in its entirety from C1 through upper thoracic levels and demonstrates s traightened alignment without evidence of acute fracture or dislocation. There is grade 1 anterolist hesis of C3 on C4. Prevertebral soft tissue appears within normal limits. The C1-C2 articulation is within normal limits on coronal images. Osseous structures are demineralized. There is narrowing of the atlantodental interval. There is mode rate spurring and disc space narrowing C5-C6 and C6-C7 levels. Spinal canal is fairly well preserved on sagittal images. Multilevel uncovertebral facet degenerative changes seen bilaterally most promine nt at C3-C4 level on axial images. Thyroid gland is felt within normal limits. Visualized lung apices are clear. IMPRESSION: 1. There is no acute fracture or dislocation evident in the cervical spine. 2. No acute intracranial hemorrhage, mass effect, or midline shift is seen. 3. No acute facial bone fracture or dislocation is evident.
--- NOTE | 2018-01-22 15:10 | XR ---
EXAMINATION TYPE: XR elbow limited bilateral DATE OF EXAM: 01/22/2018 CLINICAL HISTORY: Fall injury with pain. TECHNIQUE: Frontal and lateral images of the bilateral elbows are obtained. COMPARISON: None FINDINGS: There is no acute fracture/dislocation evident in either elbow. No abnormal fat pad signs are seen bilaterally. There is spur from medial epicondyle distal humerus right elbow. The overlyi ng soft tissue appears unremarkable bilateral. IMPRESSION: There is no acute fracture or dislocation in either elbow.
--- NOTE | 2018-01-22 15:12 | XR ---
EXAMINATION TYPE: XR knee complete bilateral DATE OF EXAM: 01/22/2018 COMPARISON: NONE HISTORY: 62-year-old female pain after fall and gravel, abrasion to left knee TECHNIQUE: 3 views each side FINDINGS: On the right, there is tricompartmental degenerative spurring with small knee joint effusion. Extenso r mechanism is intact. No acute fracture, subluxation, or dislocation. On the left, there is medial and patellofemoral compartment osteoarthrosis with small knee joint effu art. Extensor mechanism is intact. No acute fracture, subluxation, or dislocation. IMPRESSION: Small knee joint effusions on both sides. Tricompartmental osteoarthrosis. No acute osseous abnormali ty seen on either side.
--- NOTE | 2018-01-22 15:14 | XR ---
EXAMINATION TYPE: PA chest and left rib series DATE OF EXAM: 01/22/2018 COMPARISON: NONE HISTORY: 62-year-old female pain after fall on gravel, left-sided rib pain down the left arm TECHNIQUE: 4 views FINDINGS: Heart normal size. Aorta and pulmonary vasculature within normal limits. No consolidation, pneumothor ax, or pleural effusion. There is a left total shoulder arthroplasty demonstrated. No displaced left rib fracture seen. IMPRESSION: No acute cardiopulmonary process. No displaced left rib fractures. The patient's left total shoulder arthroplasty appears aligned.
[2018-01-22] MEDS ORDERED: ACETAMINOPHEN TAB 500 MG TAB PO STA (15:40)
[2018-01-22] MEDS ORDERED: TOPICAL SKIN ADHESIVE 1 EACH AMP TOPICAL ONE (15:59)
[2018-01-22 16:49] VITALS: BP 149/82; PULSE 72; TEMP 97.8
== END 2018-01-22 16:48 | disposition home or self-care (01) ==
LOC: EC 12:17
DX: S00.83XA Contusion of other part of head, initial encounter (principal); S20.212A Contusion of left front wall of thorax, initial encounter; S80.211A Abrasion, right knee, initial encounter; S80.212A Abrasion, left knee, initial encounter; S50.312A Abrasion of left elbow, initial encounter; M79.7 Fibromyalgia; E78.5 Hyperlipidemia, unspecified; I10 Essential (primary) hypertension; M19.90 Unspecified osteoarthritis, unspecified site; F41.9 Anxiety disorder, unspecified; F32.9 Major depressive disorder, single episode, unspecified; E07.9 Disorder of thyroid, unspecified; G47.30 Sleep apnea, unspecified; Z99.89 Dependence on other enabling machines and devices; Z85.3 Personal history of malignant neoplasm of breast; Z87.891 Personal history of nicotine dependence; Z90.710 Acquired absence of both cervix and uterus; Z98.890 Other specified postprocedural states; Z96.643 Presence of artificial hip joint, bilateral; Z90.13 Acquired absence of bilateral breasts and nipples; Z79.899 Other long term (current) drug therapy; Z88.2 Allergy status to sulfonamides; Z88.6 Allergy status to analgesic agent; W01.198A Fall on same level from slipping, tripping and stumbling with subsequent striking against other object, initial encounter; Y92.014 Private driveway to single-family (private) house as the place of occurrence of the external cause
CPT/HCPCS: 70450; 70486; 72125; 99284

== ENCOUNTER → 2018-01-30 | Outpatient (CLI) | payer MEDICARE ==
--- NOTE | 2018-01-30 09:09 | MR ---
MR lumbar spine wo/w con Back Pain and Numbness for years, Gadavist 10 Gadavist Multiplanar, multiecho imaging of the lumbar spine was obtained without contrast on a 3 Ida magnet. REFERENCE:None. FINDINGS: There is a 2 cm cystic structure seen arising from the upper pole of the right kidney. Par aspinal soft tissues are otherwise unremarkable. There is a gentle levoscoliosis. There is a minimal grade 1 degenerative spondylolisthesis of L4 on L5. Alignment is otherwise unremar kable. Cord signal is unremarkable. The conus ends normally at the level of the T12-L1 disc. At T12-L1, there is minimal capsulitis in the left facet. At L1-2, there is mild, bilateral facet capsulitis. At L2-3, there is minimal capsulitis within the facets. At L3-4, there is mild disc space loss. Intervertebral foramina are well maintained. There is a mild, diffuse disc displacement. There is mild hypertrophic change and capsulitis in the facets. At L4-5, there is moderate degenerative change and capsulitis within the facets. There is a degenerat alexia grade 1 spondylolisthesis of L4 on L5. There is a small pseudodisc. The intervertebral foramina a re well maintained. At L5-S1, the intervertebral foramina are well maintained. There is moderate hypertrophic changes as well as capsulitis in the facets. There is no significant compressive discopathy. There is a tiny lip thad or hemangioma in the superior endplate of S1. IMPRESSION: 1. DIFFUSE FACET JOINT DEGENERATIVE CHANGE. 2. GRADE 1 DEGENERATIVE SPONDYLOLISTHESIS OF L4 AND L5.
== END | disposition home or self-care (01) ==
LOC: RADMRIMAIN 07:18
PROVIDERS: ATTEND Psychiatry & Neurology Neurology
DX: M43.16 Spondylolisthesis, lumbar region (principal); M47.816 Spondylosis without myelopathy or radiculopathy, lumbar region
CPT/HCPCS: 82565; 84520; 72158; 36415; A9581

== ENCOUNTER → 2018-05-06 | Outpatient (CLI) | payer MEDICARE ==
--- NOTE | 2018-05-06 09:39 | US ---
EXAMINATION TYPE: US abdomen complete DATE OF EXAM: 05/06/2018 COMPARISON: MRI lumbar spine January 30, 2018. CLINICAL HISTORY: R10.11 right upper quadrant pain. Pt states generalized ABD pain and back pain EXAM MEASUREMENTS: Liver Length: 15.7 cm Gallbladder Wall: 0.2 cm CBD: 0.3 cm Spleen: 9.1 cm Right Kidney: 9.4 x 4.8 x 4.7 cm Left Kidney: 8.3 x 4.4 x 3.8 cm Pancreas: wnl Liver: Cyst superior right lobe= 1.5 x 1.2 x 1.3 cm, otherwise appeared wnl Gallbladder: wnl Evidence for sonographic Tucker's sign: No CBD: wnl Spleen: wnl Right Kidney: Cyst upper pole= 1.6 x 1.4 x 1.8 cm Left Kidney: Small in size, two calcifications at upper pole= 0.5cm and 0.6cm in size Upper IVC: wnl Abd Aorta: wnl The visualized liver is homogenous. There is simple appearing thin-walled 1.4 cm cyst in the right he patic lobe aren't by technologist. The intrahepatic portion of the IVC and visualized abdominal aort a are within normal limits. There is no evidence of cholelithiasis. Common bile duct is unremarkabl e. The visualized portions of the pancreas are homogenous. The spleen is unremarkable. Kidneys are symmetric and free of hydronephrosis. There is simple appearing 1.6 cm exophytic cyst upper pole lev el right kidney correlates with recent MRI axial image 30. Suspect 2 nonobstructing left-sided renal calculi upper pole level. IMPRESSION: No significant finding is seen to account for patient's symptoms of right upper quadrant pain into back. Suspect nonobstructing left renal calculi. This can be confirmed with noncontrast CT if desired.
== END ==
LOC: RADUSWWP 07:00
PROVIDERS: ATTEND Family Medicine
DX: R10.11 Right upper quadrant pain (principal)
CPT/HCPCS: 76700

== ENCOUNTER → 2018-10-12 | Outpatient (CLI) | payer MEDICARE ==
--- NOTE | 2018-10-12 10:08 | BD ---
EXAMINATION TYPE: Axial Bone Density DATE OF EXAM: 10/12/2018 COMPARISON: 2017 CLINICAL HISTORY: osteopenia. Postmenopausal female. Screening. Height: 5'7 Weight: 204 FRAX RISK QUESTIONS: Secondary Osteoporosis: 3. Menopause before 45: y RISK FACTORS HISTORY OF: Surgery to /Hip(right/left)/): total hips rufus When: 2010 Family History of Osteoporosis: y Postmenopausal woman: y MEDICATIONS: Thyroid Medications: Which medication: Synthroid How Lon years Additional Medications: blood pressure, cholesterol, depression, cancer inhibitor Additional History: rufus breast cancer, 2008 EXAM MEASUREMENTS: Bone mineral densitometry was performed using the [employer]. Bone mineral density as measured about the Lumbar spine is: ----- L1-L4(G/cm2): 0.891 T Score Values are as follows: ----- L2: -1.8 ----- L3: -2.1 ----- L4: -2.8 ----- L1-L4: -2.4 Bone mineral density has: Decreased -2.3% since study of: 10/06/2016 Bone mineral density about the L Wrist (g/cm2): 0.522 T Score values are as follows: -----Dist. R+U: -2.9 -----Prox. R+U: -2.5 -----Radius total: -2.5 IMPRESSION: Osteoporosis (T Score less than -2.5) with regards to the right radius. There is increased fracture risk and therapy is usually indicated based on age. Re-Screen 1-2 years. NOTE: T-SCORE=SD OF THE YOUNG ADULT MEAN.
== END | disposition home or self-care (01) ==
LOC: RADBDWWP 09:05
PROVIDERS: ATTEND Internal Medicine Hematology & Oncology
DX: M81.0 Age-related osteoporosis without current pathological fracture (principal); C50.112 Malignant neoplasm of central portion of left female breast; N95.1 Menopausal and female climacteric states; Z79.890 Hormone replacement therapy; Z88.2 Allergy status to sulfonamides
CPT/HCPCS: 77080

== ENCOUNTER → 2019-04-28 | Outpatient (CLI) | payer MEDICARE | END | disposition home or self-care (01) | LOC: LABWHC1 15:27 | PROVIDERS: ATTEND Orthopaedic Surgery | DX: Z01.812 Encounter for preprocedural laboratory examination (principal) | CPT/HCPCS: 87070 ==

== ENCOUNTER 2019-05-09 07:56 | Day surgery (SDC) | payer MEDICARE ==
[2019-05-06 08:31] VITALS: BMI 32.1
[~2019-05-09 07:56] MED LIST changes: -ACETAMINOPHEN TAB 500 MG TAB PO ONE; -DEXAMETHASONE SOD PHOSPHATE 10 MG/ML 1 ML VIAL IV ONE; +LIDOCAINE 1% 20 ML VIAL (10MG/ML) FOR IV START INTRADERMA PRN; -MIDAZOLAM 2 MG/2 ML VIAL IV PRN; -ONDANSETRON 4 MG/2 ML VIAL IVP ONE; -Pre Op ABX Message 1 EACH MISC MISCELLANE ONE; -TRANEXAMIC ACID 1,000 MG in SODIUM CHLORIDE 0.9% 100 ML IVPB ONE; -ceFAZolin 2 GM in SODIUM CHLORIDE 0.9% 100 ML IVPB ONE
[2019-05-09 08:37] VITALS: TEMP 98.7
[2019-05-09] MEDS ORDERED: PROPOFOL 10 MG/ML 20 ML VIAL IV ONE (08:58)
[2019-05-09] MEDS ORDERED: LIDOCAINE 1% INJ 10MG/ML (20 ML MDV) ONE (08:58)
--- NOTE | 2019-05-09 09:33 | P.PCN ---
Date of Procedure: 05/09/19 Description of Procedure: BRIEF HISTORY: Patient is a 64-year-old pleasant female scheduled for an elective colonoscopy as a part of surveillance after a personal history of colon polyps. Last colonoscopy 5 years ago. She denies any change in bowel habits, constipation, diarrhea, abdominal pain or blood per rectum. PROCEDURE PERFORMED: Colonoscopy with polypectomy. PREOPERATIVE DIAGNOSIS: Personal history of colon polyps, last colonoscopy 5 years ago. ESTIMATED BLOOD LOSS: Minimal. IV sedation per Anesthesia. PROCEDURE: After informed consent was obtained, the patient, was brought into the endoscopy unit. IV sedation was administered by Anesthesia under continuous monitoring. Digital rectal examination was normal. Initially the Olympus CF-190 flexible video colonoscope was then inserted in the rectum, gradually advanced into the cecum without any difficulty. Careful examination was performed as the scope was gradually being withdrawn. Ileocecal valve and the appendiceal orifice were visualized and appeared normal. Prep was excellent. Mucosa of the cecum, ascending colon, transverse colon, descending colon, sigmoid colon, and rectum appeared normal. 2 sessile polyps measuring 2 mm and 3 mm removed with cold forcep polypectomy from the ascending colon. One sessile polyp measuring 2 mm were removed with cold forcep polypectomy from the transverse colon. Retroflexion was performed in the rectum and no lesions were seen low-grade internal hemorrhoids noted. The patient tolerated the procedure well. IMPRESSION: 3 diminutive polyps removed with cold forcep, 2 from the ascending colon and one from the transverse colon. Otherwise, normal-appearing colon from rectum to cecum. RECOMMENDATIONS: Findings of this examination were discussed with the patient and her . Okay to resume diet. Okay to resume medications. Await pathology from polypectomies. Anticipate repeat colonoscopy in 3-5 years pending pathology from polypectomies.
[2019-05-09 09:37] VITALS: RESP 16
[2019-05-09 10:20] VITALS: BP 124/71; PULSE 67
== END 2019-05-09 10:25 | disposition home or self-care (01) ==
LOC: ORWHC2ENDO 07:56
PROVIDERS: ATTEND Internal Medicine
DX: Z12.11 Encounter for screening for malignant neoplasm of colon (principal); D12.2 Benign neoplasm of ascending colon; K63.5 Polyp of colon; Z86.010 Personal history of colon polyps; K64.8 Other hemorrhoids; I10 Essential (primary) hypertension; E78.5 Hyperlipidemia, unspecified; M79.7 Fibromyalgia; E07.9 Disorder of thyroid, unspecified; M19.90 Unspecified osteoarthritis, unspecified site; K21.9 Gastro-esophageal reflux disease without esophagitis; G47.33 Obstructive sleep apnea (adult) (pediatric); Z99.89 Dependence on other enabling machines and devices; Z87.891 Personal history of nicotine dependence; Z96.643 Presence of artificial hip joint, bilateral; Z96.612 Presence of left artificial shoulder joint; Z90.13 Acquired absence of bilateral breasts and nipples; Z98.82 Breast implant status; Z79.890 Hormone replacement therapy; Z79.891 Long term (current) use of opiate analgesic; Z79.899 Other long term (current) drug therapy; Z88.6 Allergy status to analgesic agent; Z88.2 Allergy status to sulfonamides; Z91.09 Other allergy status, other than to drugs and biological substances
CPT/HCPCS: 88305; 45380; J2001; J2704; 45385

== ENCOUNTER 2019-05-24 06:35 | Inpatient (IN) | payer MEDICARE ==
--- NOTE | 2019-05-23 09:52 | HP ---
HISTORY AND PHYSICAL CHIEF COMPLAINT: Right shoulder pain. HISTORY OF PRESENT ILLNESS: The patient is a 64-year-old, right-hand dominant, retired female who presents with progressive right shoulder pain for the past several years. It has worsened recently. She is having pain with overhead use and at night. She had a previous arthroscopy in 2011. PAST MEDICAL HISTORY: Significant for breast cancer, hypertension, hepatitis, renal disease, depression, arthritis, neuropathy, fibromyalgia. PAST SURGICAL HISTORY: Significant for left total shoulder arthroplasty, right shoulder arthroscopy, left total hip arthroplasty and previous breast surgery. CURRENT MEDICATIONS: 1. Cymbalta. 2. Synthroid. 3. [place]. 4. Fioricet. 5. Lasix. 6. Lisinopril. 7. Simvastatin. 8. Xanax. ALLERGIES: ANTI-INFLAMMATORIES and SULFA. FAMILY HISTORY: Significant for renal disease, heart disease and cancer. SOCIAL HISTORY: Significant for previous tobacco use in addition to social alcohol use. 16 POINT REVIEW OF SYSTEMS: Otherwise reviewed and is noncontributory. PHYSICAL EXAMINATION: On examination, patient is approximately 5 foot 7, 210 pounds of endomorphic habitus. HEENT: Exam is nonfocal. Neck: Supple. She is tender about the anterior glenohumeral joint of the right shoulder. She has moderate subacromial crepitus. Active range of motion right shoulder, forward elevation 145 degrees, external rotation with arm at side 55 degrees, internal rotation to T12. Motor strength is 5/5 for abduction and external rotation. Impingement test, and Neer test are positive. Her distal neurovascular exam appears intact in the right upper extremity. Previous x-rays of the right shoulder obtained in the office show severe glenohumeral joint osteoarthrosis with [id number] changes. The humeral head to acromial distance appears maintained. IMPRESSION: 1. Severe right glenohumeral joint osteoarthrosis. 2. History of renal disease and hypertension. PLAN: I talked to the patient at length regarding her condition and treatment options. At this point she is quite symptomatic and opts to proceed with surgery. We will plan to proceed with right total shoulder arthroplasty. She underwent preoperative medical evaluation by Dr. Claire. We will institute DVT prophylaxis postoperatively. MMODL / IJN: [id number] /
[~2019-05-24 06:35] MED LIST changes: +DEXAMETHASONE SOD PHOSPHATE 10 MG/ML 1 ML VIAL IV ONE; +HYDROmorphone 0.5 MG/0.5 ML SYRINGE IVP PRN; -LACTATED RINGERS 1,000 ML IV SCH; +MELOXICAM 7.5 MG TAB PO ONE; +MIDAZOLAM 2 MG/2 ML VIAL IV PRN; +ONDANSETRON 4 MG/2 ML VIAL IVP ONE; +SCOPOLAMINE 1.5MG/72HR PATCH TRANSDERM ONE; +TRANEXAMIC ACID 1,000 MG in SODIUM CHLORIDE 0.9% 100 ML IVPB ONE
[2019-05-24] MEDS: LACTATED RINGERS 1,000 ML IV SCH (07:29)
[2019-05-24] MEDS: ACETAMINOPHEN TAB 500 MG TAB PO ONE ×2 (07:30→07:52)
[2019-05-24] MEDS ORDERED: ROCURONIUM BROMIDE 10 MG/ML 10 ML VIAL IV ONE (08:12)
[2019-05-24] MEDS ORDERED: GLYCOPYRROLATE 0.2 MG/ML 2 ML VIAL ONE (08:12)
[2019-05-24] MEDS ORDERED: PHENYLEPHRINE-0.9% NACL SYG 1 MG/10 ML SYRINGE ONE (08:12)
[2019-05-24] MEDS ORDERED: PROPOFOL 10 MG/ML 20 ML VIAL IV ONE (08:12)
[2019-05-24] MEDS ORDERED: NEOSTIGMINE 1 MG/ML 10 ML VIAL ONE (08:12)
[2019-05-24] MEDS ORDERED: SUCCINYLCHOLINE CHLORIDE 100 MG/5 ML SYR IV ONE (08:12)
[2019-05-24] MEDS ORDERED: fentaNYL (PF) 50 MCG/ML 2 ML AMP ONE (08:12)
[2019-05-24] MEDS ORDERED: TRANEXAMIC ACID 1,000 MG/10 ML VIAL ONE (08:12)
[2019-05-24] MEDS ORDERED: SODIUM CHLORIDE 0.9% 100 ML BAG ONE (08:12)
[2019-05-24] MEDS ORDERED: LIDOCAINE 1% INJ 10MG/ML (20 ML MDV) ONE (08:12)
[2019-05-24] MEDS ORDERED: ceFAZolin 3,000 MG in SODIUM CHLORIDE 0.9% IRRIGATIO 3,000 ML IRRIGATION ONE (09:00)
[2019-05-24] MEDS ORDERED: LACTATED RINGERS 1,000 ML IV ONE (09:43)
[2019-05-24] MEDS ORDERED: ONDANSETRON 4 MG/2 ML VIAL IVP PRN (10:09)
[2019-05-24] MEDS ORDERED: ROPIVACAINE MISCELLANE PRN ×2 (10:33)
[2019-05-24] MEDS ORDERED: SODIUM CHLORIDE MISCELLANE PRN ×2 (10:33)
--- NOTE | 2019-05-24 10:33 | P.OP ---
Date of Procedure: 05/24/19 Preoperative Diagnosis: Severe right glenohumeral joint osteoarthrosis Postoperative Diagnosis: Same Procedure(s) Performed: Right total shoulder arthroplasty Implants: [employer] size 12 press-fit humeral stem, 44 x 21 mm eccentric humeral head, 44 mm cemented pegged glenoid. Anesthesia: [facility] Surgeon: Yadiel Resendiz Aircraft Designer #1: Luis F Mehta Estimated Blood Loss (ml): 100 Pathology: other (Humeral head) Condition: stable Disposition: PACU Indications for Procedure: The patient's a 64-year-old [id number] female who presents with progressive right shoulder pain secondary to osteoarthrosis despite conservative measures. A discussion of the risks and benefits of operative intervention versus continued conservative measures was made with patient. She opted to proceed with surgery. Operative risks to include infection, neurovascular injury, development of blood clots, possible fracture, possible instability and need for subsequent procedures was discussed. Informed consent was obtained. Operative Findings: As below Description of Procedure: The patient was brought to the operating room, and after induction of general anesthesia was placed in the beachchair position. The bony prominences were appropriately padded. The right upper extremity was prepped and draped in normal fashion. A deltopectoral incision was then made lateral to the coracoid process extending approximately 12 cm. The skin was incised sharply. Subcutaneous tissues were divided bluntly. Electrocautery was used for hemostasis. The deltopectoral interval was identified and the cephalic vein gently retracted laterally with the deltoid. Subdeltoid adhesions were bluntly dissected. A self-retaining retractor was placed. The clavipectoral fascia was opened and the conjoined tendon gently retracted medially. The upper one third of the pectoralis major was released to help facilitate exposure. The biceps was identified and the sheath was opened. The rotator interval was opened. The biceps was tenotomized and allowed to retract distally. The lesser tuberosity osteotomy was performed with a small sagittal saw. This completed with an osteo tome. The humeral head was then exposed releasing the capsule off the humeral neck. The shoulder was gently dislocated. A starting hole was made in the head in line with the humeral shaft. The shaft was reamed by hand up to 12 mm. There is good distal chatter. The cutting guide was placed planning a cut flush with the rotator cuff insertion and 30 of retroversion. The cutting block was pinned in place. The humeral head cut was then made. This measured most appropriately at 44 x 21 mm. Residual inferior osteophytes were carefully removed flush with the [place] cortical bone. A posterior glenoid retractor was placed. The glenoid was then exposed releasing the labrum from the 12:00 to 6 o'clock position. Residual labral tissue was removed. The glenoid sized most appropriate before mm. A guidewire was then inserted planning on the appropriate version. The glenoid was reamed down to a bleeding bony surface. The central pedicle was drilled. The alignment guide was placed in the peripheral peg holes drilled. The trial size 44 mm glenoid was placed and was fully seated. There was good anterior to posterior and inferior to superior fit. The trial component was removed. Pulsatile lavage was utilized. The bony surface was dried. The peripheral peg holes were then pressurized with cement utilizing a syringe. Excess cement was removed. A central peg glenoid was then placed and was fully seated. This was gently impacted. This was held in place until the cement had sufficiently hardened. Attention was then paid again towards preparing the proximal humerus. The appropriate broach was placed in 30 of retroversion and was fully seated. An eccentric 44 x 21 mm humeral head was placed. The shoulder was gently reduced. It was taken through a range of motion. It was felt to be stable in flexion and extension with internal and external rotation. I felt there was adequate gnosticism of soft tissue tension. The shoulder was gently dislocated. The trial components were then removed. A #2 Ethibond was placed laterally for reattachment of the lesser tuberosity. The humeral stem was inserted in 30 of retroversion and was fully seated. There was good rotational stability. The eccentric 44 x 21 mm humeral head was gently impacted. The shoulder was then gently reduced and taken through range of motion and was felt to be stable. Pulsatile lavage was utilized. Lesser tuberosity was reattached utilizing #2 Ethibond suture. The rotator interval was closed with #2 Ethibond suture. She had minimal drainage at this point therefore a deep drain was not placed. The deltopectoral interval was closed with interrupted 2-0 Vicryl sutures. The subcu tissues were reapproximated with interrupted 2-0 Vicryl sutures. The skin was reprepped with 3-0 subcuticular Prolene suture. Steri-Strips were applied. A sterile dressing was applied in addition to a sling. The patient was then awoken from general anesthesia and transferred to recovery room in good condition. Blood loss was estimated at [] mL. No complications were incurred. Sponge and needle counts were correct at the end the case. Liborio GORE assisted during the major causes case to include exposure, implantation, and closure.
--- NOTE | 2019-05-24 11:48 | XR ---
EXAMINATION TYPE: XR shoulder complete RT DATE OF EXAM: 05/24/2019 COMPARISON: NONE HISTORY: Postop right shoulder TECHNIQUE: One view submitted FINDINGS: Postsurgical changes. Soft tissue edema and emphysema noted. No acute fracture. Within the right lower lobe of the lung there is basilar consolidation. IMPRESSION: Postoperative changes appear in near-anatomic alignment. Right basilar infiltrate versus atelectasis.
[2019-05-24 12:41] VITALS: BMI 31.1
[2019-05-24] MEDS ORDERED: ALPRAZolam 0.25 MG TAB PO PRN (13:26)
[2019-05-24] MEDS ORDERED: BUTALB/APAP/CAFF 50-325-40MG TAB PO PRN (13:26)
[2019-05-24] MEDS ORDERED: LORATADINE-PSEUDOEPH 5-120 MG 1 EACH TAB.ER.12H PO PRN (13:26)
[2019-05-24] MEDS: FUROSEMIDE 40 MG TAB PO SCH ×2 (14:07→16:31)
[2019-05-24] MEDS: LISINOPRIL 10 MG TAB PO SCH ×2 (14:08→20:29)
[2019-05-24] MEDS: HYDROcodone/APAP 7.5-325MG 1 EACH TAB PO PRN ×3 (14:53→22:50)
--- NOTE | 2019-05-24 15:26 | P.ANPRN ---
Procedure Note - Anesthesia - Nerve Block Performed Right Interscalene Infusion Time Out Performed: Yes Date of Procedure: 05/24/19 Procedure Start Time: 07:42 Procedure Stop Time: 08:10 Location of Patient Procedure: PreOp Indication: Acute Post-Operative Pain, Requested by Surgeon Sedation Type: Sedate with meaningful contact maintained Preparation: Sterile Prep, Sterile Dressing Position: Supine Catheter: Indwelling Needle Types: [place] Needle Gauge: 18 Ultrasound used to visualize needle placement: Yes Ultrasound used to observe medication spread: Yes Blood Aspirated: No Pain Paresthesia on Injection Noted: No Resistance on Injection: Normal Image Stored and Saved: Yes Events: Uneventful and Well Tolerated (Ropivacaine 0.5% 20 mL)
--- NOTE | 2019-05-24 18:40 | CONS ---
CONSULTATION DATE OF SERVICE: 05/24/2019 REASON FOR CONSULTATION: Advice regarding treatment of hypertension, and other medical multiple medical issues requested by Dr. Resendiz. HISTORY OF PRESENT ILLNESS: This 64-year-old woman with a past medical history of multiple medical problems such as fibromyalgia, GERD, hypertension, hyperlipidemia, history of DJD, history of ASVD, being followed by Dr. Claire in the outpatient setting underwent right total shoulder arthroplasty. The patient is being monitored closely. There is no history of chest pain or palpitation. Blood pressure is slightly elevated. There is no history of fever, rigors or chills either. PAST MEDICAL HISTORY: History of fibromyalgia, GERD, hypertension, hyperlipidemia, history of sleep apnea, SVT, remote history of hepatitis C, history of breast cancer, peripheral neuropathy. MEDICATIONS: Home medications are: 1. [place] 7.5 mg q.h.s. p.r.n. 2. Cymbalta 60 mg p.o. b.i.d. 3. Benadryl 25 mg q.h.s. 4. Zocor 10 mg q.h.s. 5. Omeprazole 20 mg q.a.m. 6. Multivitamins 1 p.o. daily. 7. Lutein 20 mg p.o. daily. 8. Prinivil 10 mg p.o. b.i.d. 9. Synthroid 100 mcg p.o. q.a.m. 10.Lasix 40 mg p.o. b.i.d. 11.Flaxseed oil 1000 mcg p.o. daily. 12.Calista-D 1 tab q.a.m. p.r.n. 13.Vitamin B12 1000 mcg p.o. daily. 14.Calcium with vitamin D 1 p.o. q.h.s. 15.Fioricet 1 q.8h p.r.n. 16.Vitamin C 500 mg p.o. b.i.d. 17.Xanax 0.5 b.i.d. p.r.n. ALLERGIES: ADHESIVE TAPE, SULFA, NSAIDs. FAMILY HISTORY: History of breast and pancreatic cancer. SOCIAL HISTORY: Previous history of smoking. No history of alcohol intake. REVIEW OF SYSTEMS: ENT: No diminished vision. No diminished hearing. Cardiovascular: No angina or palpitations. RESPIRATIONS: No cough. No hemoptysis. GI no nausea or vomiting. no dysuria. Nervous system: No numbness or weakness. Allergy/Immunology: No asthma or hayfever. MUSCULOSKELETAL as mentioned earlier. HEMATOLOGY/ONCOLOGY: No history of anemia, otherwise mentioned earlier. ENDOCRINE: Hypothyroidism. CONSTITUTIONAL: As mentioned earlier. DERMATOLOGY: Negative. RHEUMATOLOGY: Negative. PSYCHIATRY: As mentioned earlier. PHYSICAL EXAMINATION: Alert and oriented times three. Pulse 72, blood pressure 163/81. Respirations 18. Temperature normal. Pulse ox 100 percent on room air. HEENT: Conjunctivae normal. Oral mucosa moist. NECK is no jugular venous distention. No carotid bruit. No lymph node enlargement. CARDIOVASCULAR SYSTEM: S1, S2. No S3, no S4. RESPIRATORY: Breath sounds diminished in the bases. No rhonchi. No crackles. ABDOMEN: Soft, nontender. No mass palpable. LEGS: No edema. No swelling. NERVOUS SYSTEM: Higher functions as mentioned earlier. Moves all four extremities. No focal motor or sensory deficits. LYMPHATICS: No lymph nodes palpable in the neck, axillae or groin. SKIN: No ulcer, no rashes. No bleeding. JOINTS: Status post right shoulder arthroplasty. LABS: At this time shows the preop labs, hematology is normal. Otherwise coags are normal. Chemistry showed normal. ASSESSMENT: 1. Status post right total shoulder arthroplasty. 2. Hypertension. 3. Hyperlipidemia. 4. History of fibromyalgia. 5. History of gastroesophageal reflux disease. 6. History of degenerative joint disease. 7. History of sleep apnea on CPAP. 8. History of supraventricular tachycardia. 9. History of peripheral neuropathy. 10.History of hypothyroidism. 11.History hepatitis C. 12.History of breast cancer. 13.History of migraines. 14.History of supraventricular tachycardia treated with ablation. 15.Uses BiPAP. 16.Chronic sinusitis. 17.History of anxiety, depression. 18.Remote history of nicotine dependence. RECOMMENDATIONS AND DISCUSSION: In this 64-year-old woman who presented with multiple complex medical issues, we will monitor the patient closely, continue the current medications. Resume the home medications. I would also recommend p.r.n. blood pressure medications if the blood pressure is significantly elevated. Otherwise, resume the rest of medications. DVT prophylaxis. Incentive spirometry. Follow the patient closely. The patient may be asked to follow with Dr. Claire closely after discharge. Thank you Dr. Resendiz for letting us participate in the care of this patient. MMODL / IJN: [id number] /
[2019-05-24] MEDS: CALCIUM CARB-VIT D 500MG-200UN 1 EACH TAB PO SCH (20:29)
[2019-05-24] MEDS: ATORVASTATIN 10 MG TAB PO SCH (20:29)
[2019-05-24] MEDS: diphenhydrAMINE 25 MG CAP PO SCH (20:29)
[2019-05-24] MEDS: DULoxetine HCL 60 MG CAPSULE.DR PO SCH (20:29)
[2019-05-25] MEDS: HYDROmorphone 0.5 MG/0.5 ML SYRINGE IVP PRN ×4 (00:19→22:40)
[2019-05-25] MEDS: LACTATED RINGERS 1,000 ML IV SCH (01:36)
[2019-05-25] MEDS: LEVOTHYROXINE 100 MCG TAB PO SCH (05:26)
[2019-05-25] MEDS: PANTOPRAZOLE 40 MG TABLET PO SCH (06:54)
--- NOTE | 2019-05-25 07:05 | P.PN ---
Progress Note - Text Progress Note Date: 05/25/19 Postoperative day # 1 status post total shoulder arthroplasty, under GETT, and interscalene catheter placed for postoperative analgesia, currently at ropivacaine 0.2% 8 mL per hour and continuous infusion, continued to have severe pain patient using oral pain medication for breakthrough pain. Assessment and plan= Acute postoperative pain, interscalene catheter for postop pain control , patient continued to have pain in the surgical site I encouraged patient to use oral pain medication for breakthrough pain.
[2019-05-25] MEDS: ASPIRIN 325 MG TAB PO SCH (07:38)
[2019-05-25 07:49] LABS: Basophils # (A) 0.3 k/uL (0-0.2); Basophils % (A) 3 %; Eosinophils % (A) 0 %; HCT 35.5 % (34.0-46.0); HGB 11.7 gm/dL (11.4-16.0); Lymphocytes # (A) 1.1 k/uL (1.0-4.8); Lymphocytes % (A) 13 %; MCH 29.8 pg (25.0-35.0); MCV 90.2 fL (80.0-100.0); Mean Platelet Volume 7.4; Monocytes # (A) 0.6 k/uL (0-1.0); Monocytes % (A) 7 %; Neutrophils # (A) 6.4 k/uL (1.3-7.7); Neutrophils % (A) 74 %; Platelet Count 275 k/uL (150-450); RBC 3.93 m/uL (3.80-5.40); RDW 12.3 % (11.5-15.5); WBC 8.7 k/uL (3.8-10.6)
[2019-05-25] MEDS: DULoxetine HCL 60 MG CAPSULE.DR PO SCH ×2 (08:15→21:45)
[2019-05-25] MEDS: CYANOCOBALAMIN 500 MCG TAB PO SCH (08:15)
[2019-05-25] MEDS: HYDROcodone/APAP 7.5-325MG 1 EACH TAB PO PRN (08:15)
[2019-05-25] MEDS: LISINOPRIL 10 MG TAB PO SCH (08:15)
[2019-05-25] MEDS: FUROSEMIDE 40 MG TAB PO SCH ×2 (08:15→16:18)
[2019-05-25] MEDS: hydrALAZINE HCL 20 MG/ML 1 ML VIAL IVP PRN ×2 (09:50→14:58)
--- NOTE | 2019-05-25 10:11 | P.PN ---
Subjective Progress Note Date: 05/25/19 Principal diagnosis: Status post right total shoulder arthroplasty Patient evaluated at bedside, she is having increasing pain. Pain did start last night, she has required oral and IV pain medication. Utilizing sling at this time. Denies chest pain or shortness of breath. Objective - Vital Signs Vital signs: Vital Signs Temp 97.8 F 05/25/19 07:45 Pulse 87 05/25/19 07:45 Resp 16 05/25/19 07:45 BP 178/79 05/25/19 09:49 Pulse Ox 91 L 05/25/19 07:45 Intake & Output 05/24/19 05/25/19 05/25/19 18:59 06:59 18:59 Intake Total 1251 390 Output Total 100 Balance 1151 390 Intake: IV 1251 Intake, IV Titration 290 Amount Lactated Ringers 1,000 ml 240 @ 20 mls/hr IV .Q24H ROCAEL Rx#:[id number] ceFAZolin 2 gm In Sodium 50 Chloride 0.9% 50 ml @ 100 mls/hr IVPB Q8HR ROCAEL Rx# :[id number] Oral 100 Output: Estimated Blood Loss 100 Other: Voiding Method Toilet # Voids 1 2 - Exam Right upper extremity: Initial postoperative bandage was removed, incision is clean, dry and intact. Minimal soft tissue swelling or ecchymosis. Neurovascular exam is intact - Labs CBC & Chem 7: 05/25/19 06:43 Labs: Abnormal Lab Results - Last 24 Hours (Table) 05/25/19 Range/Units 06:43 Basophils # 0.3 H (0-0.2) k/uL Assessment and Plan Plan: Assessment: 1. Postop day #1 status post right total shoulder arthroplasty Plan: Pain control, I did increase her oral medication Daily dressing changes/ice the shoulder Continue use of arm sling Medical recommendations Possible discharge home today, will reassess later this afternoon Time with Patient: Less than 30
[2019-05-25] MEDS ORDERED: LISINOPRIL 10 MG TAB PO STA (11:44)
[2019-05-25] MEDS: HYDROcodone/APAP 10-325MG 1 EACH TAB PO PRN ×2 (13:10→18:55)
[2019-05-25] MEDS ORDERED: hydrALAZINE HCL 20 MG/ML 1 ML VIAL IVP PRN (17:36)
--- NOTE | 2019-05-25 19:34 | PN ---
PROGRESS NOTE DATE OF SERVICE: 05/25/2019. This 58-year-old woman was admitted after right shoulder arthroplasty, is improving significantly. Patient has complaints of shoulder pain. No chest pain. No palpitations. No fever. No cough. EXAM: Alert and oriented times three. Pulse is 94. Blood pressure 177/81, respiration 17, temperature 97.9, pulse ox 91 percent on room air. HEENT: Conjunctivae normal. NECK: No JVD. CARDIOVASCULAR: S1, S2 muffled. RESPIRATION: Breath sounds diminished in the bases. No rhonchi. No crackles. ABDOMEN soft, nontender NERVOUS SYSTEM: No focal deficits. Exam of the right shoulder status post arthroplasty. LABS: Noted. CBC within normal limits. ASSESSMENT: 1. Status post right total shoulder arthroplasty. 2. Hypertension. 3. Hyperlipidemia. 4. History of fibromyalgia. 5. History of gastroesophageal reflux disease. 6. History of degenerative joint disease. 7. History of sleep apnea on CPAP. 8. History of supraventricular tachycardia. 9. History of peripheral neuropathy. 10.History of hypothyroidism. 11.History hepatitis C. 12.History of breast cancer. 13.History of migraine. 14.History of supraventricular tachycardia with ablation. 15.History of BiPAP. 16.Chronic sinusitis. 17.Anxiety, depression. 18.Remote history of nicotine dependence. RECOMMENDATIONS AND DISCUSSION: Recommend to continue current medication, continue with symptomatic treatment. Otherwise, I recommend increase the dose of lisinopril to 20 twice daily. Otherwise, use p.r.n. hydralazine if the blood pressure is significantly elevated. Other than that, the prognosis guarded because of multiple complex medical issues. Further recommendations to follow. MMODL / IJN: [id number] /
[2019-05-25] MEDS: CALCIUM CARB-VIT D 500MG-200UN 1 EACH TAB PO SCH (21:45)
[2019-05-25] MEDS: ATORVASTATIN 10 MG TAB PO SCH (21:45)
[2019-05-25] MEDS: diphenhydrAMINE 25 MG CAP PO SCH (21:45)
[2019-05-25] MEDS: LISINOPRIL 20 MG TAB PO SCH (21:45)
[2019-05-26] MEDS: HYDROcodone/APAP 10-325MG 1 EACH TAB PO PRN ×2 (01:10→07:59)
[2019-05-26] MEDS: hydrALAZINE HCL 20 MG/ML 1 ML VIAL IVP PRN (01:11)
[2019-05-26] MEDS: LACTATED RINGERS 1,000 ML IV SCH (02:50)
[2019-05-26] MEDS: LEVOTHYROXINE 100 MCG TAB PO SCH (05:37)
--- NOTE | 2019-05-26 06:28 | P.PN ---
Progress Note - Text 05/26/2019, The patient is status post total shoulder arthroplasty postoperative day #2. The patient has an interscalene catheter in place for postoperative pain control. The infusion of ropivacaine 0.2% is at 8 ML's per hour. The patient's VAS is 4-10. Patient states her pain is somewhat better than it was compared to yesterday. Patient is continuing to take by mouth pain meds for breakthrough pain.
[2019-05-26 07:21] VITALS: BP 157/72; PULSE 101; RESP 18; TEMP 97.9
[2019-05-26] MEDS: PANTOPRAZOLE 40 MG TABLET PO SCH (07:58)
[2019-05-26] MEDS: DULoxetine HCL 60 MG CAPSULE.DR PO SCH (07:59)
[2019-05-26] MEDS: CYANOCOBALAMIN 500 MCG TAB PO SCH (07:59)
[2019-05-26] MEDS: FUROSEMIDE 40 MG TAB PO SCH (07:59)
[2019-05-26] MEDS: LISINOPRIL 20 MG TAB PO SCH (07:59)
[2019-05-26] MEDS: ASPIRIN 325 MG TAB PO SCH (07:59)
--- NOTE | 2019-05-26 09:14 | P.PN ---
Subjective Progress Note Date: 05/26/19 Principal diagnosis: Status post right total shoulder arthroplasty Patient evaluated at bedside. Utilizing sling at this time. Denies chest pain or shortness of breath. Objective - Vital Signs Vital signs: Vital Signs Temp 97.9 F 05/26/19 07:20 Pulse 101 H 05/26/19 07:20 Resp 18 05/26/19 07:20 BP 157/72 05/26/19 07:20 Pulse Ox 93 L 05/26/19 01:12 Intake & Output 05/25/19 05/26/19 05/26/19 18:59 06:59 18:59 Intake Total 150 Balance 150 Intake: Oral 150 Other: Voiding Method Toilet # Voids 2 1 - Exam Right upper extremity: incision is clean, dry and intact. Minimal soft tissue swelling or ecchymosis. Neurovascular exam is intact - Labs CBC & Chem 7: 05/25/19 06:43 Assessment and Plan Plan: Assessment: Postop day #2 status post right total shoulder arthroplasty Plan: Pain control, [place] 10/325 Daily dressing changes/ice the shoulder Continue use of arm sling Medical recommendations Discharge home today Time with Patient: Less than 30
--- NOTE | 2019-05-26 09:15 | P.DS ---
Providers Date of admission: 05/24/19 06:35 Expected date of discharge: 05/26/19 Attending physician: Yadiel Resendiz Consults: 05/24/19 10:09 Consult Physician Routine Consulting Provider: Antonio Claire Consult Reason/Comments: medical management Do you want consulting provider notified?: Yes Primary care physician: Obie Claire [facility] Course: Date of admission: 05/24/2019 Date of discharge: 05/26/2019 Admission diagnosis: Status post right total shoulder arthroplasty Discharge diagnosis: Same Attending physician: Dr. Resendiz Surgical procedures: Right total shoulder arthroplasty Brief history: Patient is a 64-year-old female with a history of with progressive primary right shoulder osteoarthritis. At this point patient has failed conservative treatment measures and has opted to proceed with a elective right total shoulder arthroplasty. Hospital course: Details of patient's surgery can be found in operative report. Patient tolerated the procedure well and was subsequently transported to orthopedic floor. Patient's orthopeidc and medical care was provided daily. Patient had daily laboratory tests performed for evaluation of overall blood cou nts. Patient had daily physical therapy to include strengthening range of motion as well as education with walker ambulation. Patient was treated with aspirin for their postoperative DVT prophylaxis during their inpatient stay. Patient was noted to have a relatively uneventful postoperative course. Patient reported satisfactory pain control with oral pain medications by postoperative day 0. Patient showed satisfactory progress with physical therapy. Patient moved steadily through the program and had no difficulty meeting the goals by postoperative day 2. Given patient's otherwise satisfactory course and having met physical therapy goals, plan is to discharge patient home on postoperative day 2. Discharge condition/disposition: Patient will be discharged home in stable condition. Discharge medications: Instructions are given on resumption of patient's normal daily medications per primary care recommendation, in addition patient will be prescribed [place] 10 mg/325 mg. Discharge instructions: 1. Wound care and infection precautions, keep incision dry and covered while showering, no lotions, creams, moisturizers. No soaking, tubs, pools, hottubs. Do not scrub over the incision. 2. Utilize arm sling 3. Ice and elevate when necessary. Do not exceed 20 minutes per hour with ice pack. 4. Pain meds and anticoagulants per prescription. 5. Pain medication has potential to cause constipation. Increase oral fluid and fiber intake. Contact primary care provider if you have not had a bowel movement within 48 hours after discharge 6. No anti-inflammatory medication until discussed at first post operative visit, this including Motrin, Aleve, Mobic, Diclofenac 7. Follow up in office at 2 weeks postop with Liborio Mehta PA-C 8. Follow up with your primary care doctor 7-10 days after discharge. 9. Contact [facility] with any questions, . Procedures: Right total shoulder arthroplasty Patient Condition at Discharge: Good Plan - Discharge Summary Discharge Rx Participant: Yes New Discharge Prescriptions: New Hydrocodone/Acetaminophen [[place] 10-325] 1 each PO Q6H PRN #21 tab PRN Reason: Pain No Action diphenhydrAMINE HCL [Benadryl] 25 mg PO HS Fexofenadine/Pseudoephedrine [Calista-D 12 Hour Tablet] 1 tab PO QAM PRN PRN Reason: Allergy Symptoms Furosemide [Lasix] 40 mg PO BID Lisinopril [Prinivil] 10 mg PO BID Butalb/Acetaminophen/Caffeine [Fioricet 50-325-40] 1 tab PO Q8H PRN PRN Reason: Headache DULoxetine HCL [Cymbalta] 60 mg PO BID HYDROcodone/APAP 7.5-325MG [[place] 7.5-325] 1 tab PO HS PRN PRN Reason: Pain Levothyroxine Sodium [Synthroid] 100 mcg PO QAM Flaxseed Oil [[place]-3 Flaxseed Oil] 1,000 mg PO DAILY Simvastatin [Zocor] 20 mg PO HS Lutein 20 mg PO DAILY Omeprazole 20 mg PO QAM Cyanocobalamin (Vitamin B-12) [Vitamin B-12] 1,000 mcg PO DAILY ALPRAZolam [Xanax] 0.25 mg PO Q12H PRN PRN Reason: Anxiety Ascorbic Acid [Vitamin C] 500 mg PO BID Calcium Carbonate/Vitamin D3 [Caltrate 600 Plus D3 Tablet] 1 each PO HS Multivit-Min/Iron/Folic/Lutein [[place] Silver Women Tablet] 1 each PO DAILY Discharge Medication List Fexofenadine/Pseudoephedrine [Calista-D 12 Hour Tablet] 1 tab PO QAM PRN 12/29/14 [History] Furosemide [Lasix] 40 mg PO BID 12/29/14 [History] Lisinopril [Prinivil] 10 mg PO BID 12/29/14 [History] diphenhydrAMINE HCL [Benadryl] 25 mg PO HS 12/29/14 [History] Butalb/Acetaminophen/Caffeine [Fioricet 50-325-40] 1 tab PO Q8H PRN 06/02/16 [History] DULoxetine HCL [Cymbalta] 60 mg PO BID 06/02/16 [History] HYDROcodone/APAP 7.5-325MG [[place] 7.5-325] 1 tab PO HS PRN 06/02/16 [History] Flaxseed Oil [[place]-3 Flaxseed Oil] 1,000 mg PO DAILY 01/22/18 [History] Levothyroxine Sodium [Synthroid] 100 mcg PO QAM 01/22/18 [History] Lutein 20 mg PO DAILY 01/22/18 [History] Simvastatin [Zocor] 20 mg PO HS 01/22/18 [History] ALPRAZolam [Xanax] 0.25 mg PO Q12H PRN 05/06/19 [History] Ascorbic Acid [Vitamin C] 500 mg PO BID 05/06/19 [History] Calcium Carbonate/Vitamin D3 [Caltrate 600 Plus D3 Tablet] 1 each PO HS 05/06/19 [History] Cyanocobalamin (Vitamin B-12) [Vitamin B-12] 1,000 mcg PO DAILY 05/06/19 [History] Multivit-Min/Iron/Folic/Lutein [Centrum Silver Women Tablet] 1 each PO DAILY 05/06/19 [History] Omeprazole 20 mg PO QAM 05/06/19 [History] Hydrocodone/Acetaminophen [[place] 10-325] 1 each PO Q6H PRN #21 tab 05/26/19 [Rx] Follow up Appointment(s)/Referral(s): Antonio Claire MD [Primary Care Provider] - 1 Week Luis F Mehta PAC [PHYSICIAN [employer] SECRETARY] - 06/08/19 2:30 pm Activity/Diet/Wound Care/Special Instructions: Orthopedic discharge instructions: 1. Resume home medications 2. Pain medication and anticoagulation is instructed 3. Daily dressing changes, keep incision dry and covered while showering 4. Utilize arm sling, avoid excessive use of the upper extremity 5. Ice and elevate shoulder opted 6. Plan for follow[facility]up at [facility] 2 [facility] Discharge Disposition: HOME WITH HOME HEALTH SERVICES
--- NOTE | 2019-05-26 19:25 | PN ---
PROGRESS NOTE DATE OF SERVICE: 05/26/2019 This 64 -year-old woman who was admitted after right total shoulder arthroplasty is improving significantly. No chest pain. No palpitations. No fever. EXAM: Alert and oriented times three. Pulse 101. Blood pressure 157/72, respiration 18, temperature 97.9, pulse ox normal. HEENT: Conjunctivae normal. NECK: No JVD. CARDIOVASCULAR: S1, S2 muffled. RESPIRATORY: Breath sounds diminished in the bases. No rhonchi. No crackles. ABDOMEN is soft. NERVOUS SYSTEM: No focal deficits. Shoulder status post shoulder arthroplasty. LABS: Noted. ASSESSMENT: 1. Status post right shoulder joint arthroplasty. 2. Hypertension. 3. Hyperlipidemia. 4. History of fibromyalgia. 5. Gastroesophageal reflux disease. 6. History of degenerative joint disease. 7. History of sleep apnea on CPAP. 8. History of supraventricular tachycardia. 9. History of peripheral neuropathy. 10.History of hypothyroidism. 11.History of hepatitis C. 12.History of breast cancer. 13.History of migraine. 14.History of supraventricular tachycardia with ablation. 15.History of BiPAP. 16.Chronic sinusitis. 17.Anxiety, depression. 18.Remote history of nicotine dependence. RECOMMENDATIONS AND DISCUSSION: Recommend to continue current medications, continue with monitoring, symptomatic treatment. Otherwise, incentive spirometry. Closely follow with Orthopedic surgery. Further recommendations per Orthopedic surgery. MMODL / IJN: [id number] /
--- NOTE | 2019-05-26 23:25 | PN ---
PROGRESS NOTE DATE OF SERVICE: May 26, 2019. PRESENTING COMPLAINT: Right shoulder surgery. INTERVAL HISTORY: Patient is status post right total shoulder arthroplasty. Pain is controlled. Did tolerate a diet. No nausea, vomiting. No fever. No chills. Sitting up in a chair. REVIEW OF SYSTEMS: Done for constitutional, cardiovascular, GI, pulmonary, musculoskeletal, relevant findings as above. CURRENT MEDICATIONS: Reviewed from today's electronic records. PHYSICAL EXAMINATION: VITAL SIGNS: Temperature 97.9, pulse 101, respiration 18, blood pressure 157/72. GENERAL APPEARANCE: BMI 31.1. Sitting up in a chair, comfortable. EYES: Pupils equal. Conjunctivae normal. NECK: JVD unable to assess. Mass not palpable. RESPIRATORY: Effort normal. LUNGS: Fair air entry. CARDIOVASCULAR: First and second sounds normal. No edema. ABDOMEN: Soft, nontender. Liver and spleen not palpable. PSYCHIATRY: Alert and oriented times three. Mood and affect normal. EXTREMITIES: Right arm in a sling. Dressing over the right shoulder. The patient has got sensation movement in the right hand. INVESTIGATIONS: White count 8.7, hemoglobin 11.7. ASSESSMENT: 1. Right total shoulder arthroplasty. 2. Obesity; BMI 31.1. 3. Chronic fibromyalgia. 4. Gastroesophageal reflux disease. 5. Hyperlipidemia. 6. Essential hypertension. 7. Primary osteoarthritis. 8. Peripheral neuropathy idiopathic. 9. Obstructive sleep apnea uses BiPAP. 10.Anxiety and depression, not otherwise specified. PLAN: Continue current medication and treatment plan. Patient should follow up with her home physician after discharge. Care was discussed with the patient and family at the bedside. Thank you Dr. Resendiz. Copy to Dr. Claire. MMERENDIRAL / IJN: [id number] /
== END 2019-05-26 13:15 | disposition home or self-care (01) | DRG 483 ==
LOC: 2ORMAIN 06:35 → 4SSUR 10:34
PROVIDERS: ADMIT Orthopaedic Surgery; ATTEND Orthopaedic Surgery
PROC: 0RRJ0JZ Replacement of Right Shoulder Joint with Synthetic Substitute, Open Approach (ICD-10-PCS; principal; 2019-05-24 08:00)
DX: M19.011 Primary osteoarthritis, right shoulder (principal); E03.9 Hypothyroidism, unspecified; E66.9 Obesity, unspecified; Z68.31 Body mass index [BMI] 31.0-31.9, adult; E78.5 Hyperlipidemia, unspecified; F32.9 Major depressive disorder, single episode, unspecified; F41.9 Anxiety disorder, unspecified; G47.33 Obstructive sleep apnea (adult) (pediatric); G62.9 Polyneuropathy, unspecified; I10 Essential (primary) hypertension; J32.9 Chronic sinusitis, unspecified; K21.9 Gastro-esophageal reflux disease without esophagitis; M79.7 Fibromyalgia; Z80.0 Family history of malignant neoplasm of digestive organs; Z85.3 Personal history of malignant neoplasm of breast; Z86.19 Personal history of other infectious and parasitic diseases; Z87.891 Personal history of nicotine dependence; Z96.612 Presence of left artificial shoulder joint; Z96.642 Presence of left artificial hip joint; Z79.890 Hormone replacement therapy; Z79.891 Long term (current) use of opiate analgesic; Z79.899 Other long term (current) drug therapy; Z88.2 Allergy status to sulfonamides; Z88.8 Allergy status to other drugs, medicaments and biological substances; Z82.49 Family history of ischemic heart disease and other diseases of the circulatory system; Z84.1 Family history of disorders of kidney and ureter; Z80.3 Family history of malignant neoplasm of breast; Z99.89 Dependence on other enabling machines and devices; G43.909 Migraine, unspecified, not intractable, without status migrainosus
CPT/HCPCS: 64415; 76942; 85025; 88305; 88311

== ENCOUNTER → 2020-10-16 | Outpatient (CLI) | payer MEDICARE ==
--- NOTE | 2020-10-16 16:09 | BD ---
EXAMINATION TYPE: Axial Bone Density DATE OF EXAM: 10/16/2020 COMPARISON: 10.06.2016 CLINICAL HISTORY: 65 YR OLD FEMALE.....ICD-10 CODE: Z79.890 POST MENOPAUSAL Height: 65.2 Weight: 213 FRAX RISK QUESTIONS: Glucocorticoids (More than 3mos): YES (Ex: prednisone, prednisolone, methylprednisolone, dexamethasone, and hydrocortisone). History of Fracture in Adulthood: YES Secondary Osteoporosis: YES. 3. Menopause before 45: YES RISK FACTORS HISTORY OF: History of Wrist Fracture: RT ARM WRIST TO ELBOW AN ADULT Surgery to BILAT HIP REPLACEMENTS Family History of Osteoporosis: YES, 2 SISTERS, NO BREAKS Postmenopausal woman: YES, 35 YR OLD, TOTAL HYST. Take estrogen and/or progesterone medications: YES, FOR ABOUT 15 YRS Hyperparathyroidism: NO Adrenal Insufficiency: MEDICATIONS: Prednisone or other steroids: RESCUE INHALER, FOR LUNGS, PRN...FOR MANY YRS Thyroid Medications: YES, SYNTHROID FOR ABOUT 40 YRS Additional Medications: CALCIUM, VIT D, BP MEDS, CYMBALTA AND XANAX PRN, REFLUX MEDS, STATIN FOR CHOL ESTEROL ... Additional History: ASTHMA, JOINT AND SKELETAL PAIN, CHOLESTEROL, REFLUX... BILAT MASTECTOMY FOR [facility],. EXAM MEASUREMENTS: Bone mineral densitometry was performed using the [employer] System. Bone mineral density as measured about the Lumbar spine is: ----- L1-L4(G/cm2): 0.906 T Score Values are as follows: ----- L1: -2.6 ----- L2: -1.6 ----- L3: -2.4 ----- L4: -2.6 ----- L1-L4: - 2.3 Bone mineral density has: Decreased -1.8% since study of: 10.06.2016 HIPS NOT SCANNED....BILAT THRs...THEREFOR NO FRAX RATIOs Bone mineral density about the L Wrist (g/cm2): 0.501 T Score values are as follows: -----Dist. R+U: -2.2 -----Prox. R+U: -3.1 -----Radius total: -3.0 Bone mineral density FIRST FOREARM SCAN.....FIRST PERIHERNIAL DEXA SCAN IMPRESSION: Osteoporosis (T Score less than -2.5). There is increased fracture risk and therapy is usually indicated based on age. Re-Screen 1-2 years. NOTE: T-SCORE=SD OF THE YOUNG ADULT MEAN.
== END ==
LOC: RADBDWWP 09:14
PROVIDERS: ATTEND Internal Medicine Hematology & Oncology
DX: M81.0 Age-related osteoporosis without current pathological fracture (principal); M85.89 Other specified disorders of bone density and structure, multiple sites; Z78.0 Asymptomatic menopausal state
CPT/HCPCS: 77080

== ENCOUNTER 2021-12-21 12:28 | Emergency (ER) | payer MEDICARE ==
[2021-12-21 13:02] VITALS: BP 131/80; PULSE 87; RESP 16; TEMP 98.9
[2021-12-21] MEDS ORDERED: BACITRACIN OINT 1 EACH PACKET TOPICAL ONE (13:30)
[2021-12-21] MEDS ORDERED: LIDOCAINE 1% INJ 10MG/ML (5 ML VIAL-PF) SQ STA (13:30)
[2021-12-21] MEDS ORDERED: ACETAMINOPHEN TAB 325 MG TAB PO STA (13:30)
--- NOTE | 2021-12-21 13:35 | XR ---
EXAMINATION TYPE: XR elbow complete RT DATE OF EXAM: 12/21/2021 COMPARISON: 01/22/2018 HISTORY: Fall, pain TECHNIQUE: Three-view right elbow FINDINGS: Anterior fat pad is normal. No elevation of the posterior fat pad is evident. Radius aligns normally with the humerus. No acute fracture or dislocation is evident. Chronic changes of the radia l head appear to be present. IMPRESSION: 1. No acute osseous abnormality right elbow. Follow up exams can be performed 7-10 days from acute t rauma for continued pain.
--- NOTE | 2021-12-21 13:40 | ED ---
Upper Extremity HPI - General Chief Complaint: Extremity Injury, Upper Stated Complaint: Rt Elbow Injury Time Seen by Provider: 12/21/21 13:23 Source: patient Mode of arrival: ambulatory Limitations: no limitations - History of Present Illness Initial Comments: 66-year-old female patient presents to the emergency department today for evaluation of right elbow injury. States she was doing gardening when her dog tripped her with the chain and she fell hitting her elbow on a large stone. She did sustain laceration was having difficulty getting the bleeding under control. States she is having pain in the elbow is concerned it may be broken. States she is having some mild discomfort in her neck. Denies any radiating pain down the arms. Denies numbness or tingling to the arms or hands. She denies any back, hip, knee pain. Denies any other known injuries. State she believes her tetanus is up to date. She denies hitting her head or losing consciousness. Denies use of blood thinning medications. Patient denies any headache, chest pain, shortness of breath, dizziness, weakness, abdominal pain, nausea, vomiting, or difficulties with bowel movements or urination. - Related Data Home Medications Medication Instructions Recorded Confirmed Fexofenadine/Pseudoephedrine 1 tab PO QAM PRN 12/29/14 05/09/19 [Calista-D 12 Hour Tablet] Furosemide [Lasix] 40 mg PO BID 12/29/14 05/09/19 Lisinopril [Prinivil] 10 mg PO BID 12/29/14 05/06/19 diphenhydrAMINE HCL [Benadryl] 25 mg PO HS 12/29/14 05/09/19 Butalb/Acetaminophen/Caffeine 1 tab PO Q8H PRN 06/02/16 05/09/19 [Fioricet 50-325-40] DULoxetine HCL [Cymbalta] 60 mg PO BID 06/02/16 05/24/19 Levothyroxine Sodium [Synthroid] 100 mcg PO QAM 01/22/18 05/06/19 Lutein 20 mg PO DAILY 01/22/18 05/09/19 Simvastatin [Zocor] 20 mg PO HS 01/22/18 05/09/19 flaxseed oiL [[place]-3 Flaxseed Oil] 1,000 mg PO DAILY 01/22/18 05/06/19 ALPRAZolam [Xanax] 0.25 mg PO Q12H PRN 05/06/19 05/09/19 Ascorbic Acid [Vitamin C] 500 mg PO BID 05/06/19 05/09/19 Calcium Carbonate/Vitamin D3 1 each PO HS 05/06/19 05/09/19 [Caltrate 600 Plus D3 20 Mcg (800 Iu)] Cyanocobalamin (Vitamin B-12) 1,000 mcg PO DAILY 05/06/19 05/09/19 [Vitamin B-12] Multivit-Min/Iron/Folic/Lutein 1 each PO DAILY 05/06/19 05/06/19 [Centrum Silver Women Tablet] Omeprazole 20 mg PO QAM 05/06/19 05/06/19 Previous Rx's Medication Instructions Recorded Hydrocodone/Acetaminophen [[place] 1 each PO Q6H PRN #21 tab 05/26/19 10325] Allergies Allergy/AdvReac Type Severity Reaction Status Date / Time adhesive tape Allergy irritates Verified 12/21/21 12:57 skin,"paper tape is ok" Sulfa (Sulfonamide Allergy Unknown Verified 12/21/21 12:57 Antibiotics) Childhood NSAIDS (Non-Steroidal AdvReac Causes Verified 12/21/21 12:57 Anti-Inflamma Kidney Failure Review of Systems ROS Statement: Those systems with pertinent positive or pertinent negative responses have been documented in the HPI. ROS Other: All systems not noted in ROS Statement are negative. Past Medical History Past Medical History: Cancer, Fibromyalgia, GERD/Reflux, Hyperlipidemia, Hypertension, Neurologic Disorder, Osteoarthritis (OA), Sleep Apnea/CPAP/BIPAP, Supraventricular Tachycardia (SVT), Thyroid Disorder Additional Past Medical History / Comment(s): Peripheral neuropathy; Hepatitis C 1972; breast cancer, MIGRAINES, SVT RESOLVED WITH ABLATION, USES BIPAP, CHRONIC SINUSITIS AND ENVIRONMENTAL ALLERGIES, History of Any Multi-Drug Resistant Organisms: None Reported Past Surgical History: Breast Surgery, Cardiac Ablation, EPS, Hysterectomy, Joint Replacement, Orthopedic Surgery, Tonsillectomy Additional Past Surgical History / Comment(s): Román hip replacement; breast implants; bilateral mastectomy. COLONOSCOPY, RT ROTATOR CUFF REPAIR, MOLE REMOVED FROM [employer], tls Past Anesthesia/Blood Transfusion Reactions: Motion Sickness, Postoperative Nausea & Vomiting (PONV) Additional Past Anesthesia/Blood Transfusion Reaction / Comment(s): no hx blood transfusion Past Psychological History: Anxiety, Depression Smoking Status: Never smoker Past Alcohol Use History: Occasional Past Drug Use History: None Reported - Past Family History Sister(s) Family Medical History: Cancer Additional Family Medical History / Comment(s): breast and pancreas General Exam Limitations: no limitations General appearance: alert, in no apparent distress, other (Physical well- developed, well-nourished adult female in no acute distress.) Head exam: Present: atraumatic, normocephalic, normal inspection Eye exam: Present: normal appearance, PERRL, EOMI. Absent: scleral icterus, conjunctival injection, periorbital swelling ENT exam: Present: normal exam, normal oropharynx, mucous membranes moist Neck exam: Present: normal inspection, tenderness (Mild mid cervical spinal tenderness), full ROM, other (No bony step-off or deformity noted to for midline palpation of the posterior cervical spine.). Absent: meningismus, lymphadenopathy Respiratory exam: Present: normal lung sounds bilaterally. Absent: respiratory distress, wheezes, rales, rhonchi, stridor Cardiovascular Exam: Present: regular rate, normal rhythm, normal heart sounds. Absent: systolic murmur, diastolic murmur, rubs, gallop, clicks GI/Abdominal exam: Present: soft, normal bowel sounds. Absent: distended, tenderness, guarding, rebound, rigid Extremities exam: Present: full ROM, tenderness (Right posterior elbow), normal capillary refill, other (There is 3 cm laceration noted to the right posterior elbow. Mild oozing of blood. Full range of motion is intact. Skin is otherwise pink, warm, dry. Cap refill less than 3 seconds. Radial pulses 2+.). Absent: normal inspection, pedal edema, joint swelling, calf tenderness Back exam: Present: normal inspection, other (Nontender, no step-off, no deformity to firm midline palpation of the thoracic and lumbar vertebrae. Full range of motion without pain or limitation.). Absent: vertebral tenderness Neurological exam: Present: alert, oriented X3, CN II-XII intact Psychiatric exam: Present: normal affect, normal mood Skin exam: Present: warm, dry, intact, normal color. Absent: rash Course Vital Signs 12/21/21 12:57 Temperature 98.9 F Pulse Rate 87 Respiratory 16 Rate Blood Pressure 131/80 O2 Sat by Pulse 99 Oximetry Medical Decision Making - Medical Decision Making 66 year-old female patient presents to the emergency department for evaluation after a fall. Physical exam revealed 3cm laceration to the right elbow, abrasion to right elbow. Mild cervical spinal tenderness. Xrays right elbow and cervical spine are negative. She was given Tylenol here. She will follow up with her PCP regarding tetanus status. Given sling and instructions to prevent frozen shoulder. She is instructed to follow-up with her primary care physician in one to days. Return parameters were discussed in detail. She verbalizes understanding and agrees with this plan. My attending is Dr. Carrera. - Radiology Data Radiology results: report reviewed, image reviewed 3 views of the right elbow are obtained. Report was reviewed in its entirety. Impression by Dr. Garcia shows no acute osseous abdomen the right elbow. X-ray of the cervical spine is obtained. Report was reviewed in its entirety. Impression by Dr. Rodriguez shows mild degenerative spurring in the lower cervical spine. No fracture seen. Minimal subluxation at C3 to 4 which appears chronic. Disposition Clinical Impression: Abrasion of right elbow, Laceration of right elbow, Contusion of right elbow, Cervical strain Disposition: HOME SELF-CARE Condition: Good Instructions (If sedation given, give patient instructions): Care For Your Stitches (ED), Laceration (ED), How to Use a Sling (ED), Abrasion (ED) Additional Instructions: Perform gentle range of motion of the right elbow and right shoulder 3-4 times per day will using the sling. Take Tylenol for pain control. Apply ice to the painful areas. Rest. Follow up with her primary care physician for recheck in 1-2 days. Have repeat x-ray the elbow performed pain symptoms persist beyond 7- 10 days. Return to the emergency department for any new, worsening, or concerning symptoms. Is patient prescribed a controlled substance at d/c from ED?: No Referrals: Antonio Claire MD [Primary Care Provider] - 1-2 days Time of Disposition: 15:13
--- NOTE | 2021-12-21 14:58 | XR ---
EXAMINATION TYPE: XR cervical spine comp DATE OF EXAM: 12/21/2021 COMPARISON: NONE HISTORY: Neck pain TECHNIQUE: 6 view FINDINGS: The cervical vertebra have fairly normal alignment. There is mild anterior spurring at C4-5 and C5-6. The neural foramina are fairly well maintained. Atlantoaxial facet joint is normal. There are no cervical ribs. There is a minimal C3-4 anterior subluxation. IMPRESSION: Mild degenerative spurring in the lower cervical spine. No fracture seen. Minimal subluxa tion at C3-4 which appears chronic.
== END 2021-12-21 16:01 | disposition home or self-care (01) ==
LOC: EC 12:28
DX: S59.901A Unspecified injury of right elbow, initial encounter (principal)
CPT/HCPCS: 72050; 73080; J2001

== ENCOUNTER → 2022-04-07 | Outpatient (CLI) | payer MEDICARE | END | disposition home or self-care (01) | LOC: LABPAT 09:58 | PROVIDERS: ATTEND Orthopaedic Surgery | DX: Z01.812 Encounter for preprocedural laboratory examination (principal); Z22.322 Carrier or suspected carrier of Methicillin resistant Staphylococcus aureus; M17.11 Unilateral primary osteoarthritis, right knee | CPT/HCPCS: 87070 ==

== ENCOUNTER 2022-05-16 08:24 | Observation (INO) | payer MEDICARE ==
--- NOTE | 2022-05-15 08:46 | P.HPOR ---
History of Present Illness H&P Date: 05/15/22 Chief Complaint: Right knee pain The patient is a 66-year-old female who presents with right knee pain for the past several years worsening recently. She's having medial pain with weightbearing activities along with swelling and giving way. She is having night symptoms. She tried medications and injections with only partial temporary relief. She notes daily pain that limits her. Review of Systems As per HPI Past Medical History Past Medical History: Cancer, Fibromyalgia, GERD/Reflux, Hyperlipidemia, Hypertension, Neurologic Disorder, Osteoarthritis (OA), Renal Disease, Sleep Apnea/CPAP/BIPAP, Supraventricular Tachycardia (SVT), Thyroid Disorder Additional Past Medical History / Comment(s): Peripheral neuropathy; Hepatitis C 1971; breast cancer 2008, MIGRAINES, SVT RESOLVED WITH ABLATION, , CHRONIC SINUSITIS AND ENVIRONMENTAL ALLERGIES, pt states she has had no significant issues with sleep apnea with wt loss. hasnt used bipap in 3 yrs. kidney issues since 2004 r/t NSAIDS. on metformin due to wt gain to help pt loose wt. + Covid 09/2021, History of Any Multi-Drug Resistant Organisms: None Reported Past Surgical History: Breast Surgery, Cardiac Ablation, EPS, Hysterectomy, Joint Replacement, Orthopedic Surgery, Tonsillectomy Additional Past Surgical History / Comment(s): Román hip replacement; breast implants; bilateral mastectomy. COLONOSCOPY, RT ROTATOR CUFF REPAIR, MOLE REMOVED FROM [facility] [place], [place] [facility], tls. bilateral shoulder replacement 2017.2019, bilateral cataracts with lenses 2018. rt eye surgery 2019 to remove something. had growth to right arm removed- benign Past Anesthesia/Blood Transfusion Reactions: Motion Sickness, Postoperative Nausea & Vomiting (PONV) Additional Past Anesthesia/Blood Transfusion Reaction / Comment(s): no hx blood transfusion. use patch behind her ear for nausea works well.( scope patch). blood pressure has dropped after hip surgery. Smoking Status: Former smoker - Past Family History Sister(s) Family Medical History: Cancer Additional Family Medical History / Comment(s): breast and pancreas. another sister with uterus cancer aggressive. another sister had DVT Mother Family Medical History: Congestive Heart Failure (CHF) Father Family Medical History: Congestive Heart Failure (CHF), CVA/TIA Medications and Allergies Home Medications Medication Instructions Recorded Confirmed Type Fexofenadine/Pseudoephedrine 1 tab PO QAM PRN 12/29/14 05/14/22 History [Calista-D 12 Hour Tablet] Furosemide [Lasix] 20 mg PO DAILY 12/29/14 05/14/22 History diphenhydrAMINE HCL [Benadryl] 25 mg PO HS 12/29/14 05/14/22 History lisinopriL [Prinivil] 10 mg PO BID 12/29/14 05/14/22 History DULoxetine HCL [Cymbalta] 60 mg PO BID 06/02/16 05/14/22 History Levothyroxine Sodium [Synthroid] 100 mcg PO QAM 01/22/18 05/14/22 History Simvastatin [Zocor] 20 mg PO HS 01/22/18 05/14/22 History flaxseed oiL [[place]-3 Flaxseed Oil] 1,000 mg PO DAILY 01/22/18 05/14/22 History ALPRAZolam [Xanax] 0.25 mg PO Q12H PRN 05/06/19 05/14/22 History Ascorbic Acid [Vitamin C] 500 mg PO BID 05/06/19 05/14/22 History Calcium Carbonate/Vitamin D3 1 each PO HS 05/06/19 05/14/22 History [Caltrate 600 Plus D3 20 Mcg (800 Iu)] Multivit-Min/Iron/Folic/Lutein 1 each PO DAILY 05/06/19 05/14/22 History [Centrum Silver Women Tablet] Omeprazole 20 mg PO QAM 05/06/19 05/14/22 History Gabapentin 300 mg PO DAILY 05/14/22 05/14/22 History Gabapentin 600 mg PO HS 05/14/22 05/14/22 History HYDROcodone/APAP 7.5-325MG [Dracut 1 tab PO HS PRN 05/14/22 05/14/22 History 7.5-325] Montelukast Sodium [Singulair] 10 mg PO DAILY 05/14/22 05/14/22 History Risedronate Sodium [Actonel] 150 mg PO QMONTHLY 05/14/22 05/14/22 History Rizatriptan Odt [Maxalt Manager Occupational] 5 mg PO DIRECTED PRN 05/14/22 05/14/22 History metFORMIN HCL ER [Glucophage XR] 500 mg PO DAILY 05/14/22 05/14/22 History Allergies Allergy/AdvReac Type Severity Reaction Status Date / Time adhesive tape Allergy irritates Verified 05/14/22 11:52 skin,"paper tape is ok" Sulfa (Sulfonamide Allergy Unknown Verified 05/14/22 11:52 Antibiotics) Childhood NSAIDS (Non-Steroidal AdvReac Causes Verified 05/14/22 11:52 Anti-Inflamma Kidney Failure Physical Examination - Knee right Appearance: effusion Effusion grade: grade 1 Varus alignment in stance: 5 degrees Tenderness with palpation: medial Pain: with flexion Gait: limping ROM: extension: -10 degrees ROM: flexion: 110 degrees Crepitus with motion: Yes Strength: extension: 5/5 Strength: flexion: 5/5 Meniscal tests: medial meniscal tests: positive, medial joint line pain: positive Results The patient is a well-developed well-nourished female approximately 203 pounds of endomorphic habitus. HEENT exam is nonfocal, neck supple. She has painless passive motion of the right hip. Straight leg raise is negative. Her distal neurovascular appears intact in the right lower extremity. - Diagnostic results Knee x-ray: image reviewed (3 views of the right knee obtained in the office show severe tricompartmental osteoarthrosis with [id number] changes and subchondral sclerosis.) Assessment and Plan Assessment: Right knee severe tricompartmental osteoarthrosis Plan: I talked the patient regarding her condition along with treatment options. At this point she is quite limited because of pain related to her osteoarthrosis. After a thorough discussion she opted to proceed with surgery. We'll plan to proceed with right total knee arthroplasty. Risks and benefits were discussed at length in layman's terms. We will institute DVT prophylaxis postoperatively. Time with Patient: Less than 30
[~2022-05-16 08:24] MED LIST changes: +ACETAMINOPHEN TAB 500 MG TAB PO PRN; -DEXAMETHASONE SOD PHOSPHATE 10 MG/ML 1 ML VIAL IV ONE; +DEXAMETHASONE SOD PHOSPHATE 4 MG/ML 1 ML VIAL IV ONE; -LIDOCAINE 1% 20 ML VIAL (10MG/ML) FOR IV START INTRADERMA PRN; -MELOXICAM 7.5 MG TAB PO ONE; +MELOXICAM 7.5 MG TAB PO PRN; -SCOPOLAMINE 1.5MG/72HR PATCH TRANSDERM ONE; -TRANEXAMIC ACID 1,000 MG in SODIUM CHLORIDE 0.9% 100 ML IVPB ONE; +TRANEXAMIC ACID IN NACL,ISO-OS 1,000 MG in SALINE 1 100ML.BAG IVPB PRN
[2022-05-16] MEDS: LACTATED RINGERS 1,000 ML IV SCH (09:00)
[2022-05-16 09:33] LABS: Glucose,Whole Blood 83 mg/dL (70-110)
[2022-05-16] MEDS ORDERED: fentaNYL (PF) 50 MCG/ML 2 ML AMP IVP ONE (09:57)
[2022-05-16] MEDS ORDERED: MIDAZOLAM 2 MG/2 ML VIAL IVP ONE ×2 (09:57→10:25)
--- NOTE | 2022-05-16 10:54 | P.ANPRN ---
Procedure Note - Anesthesia - Nerve Block Performed Right Adductor Canal Time Out Performed: Yes (:56) Date of Procedure: 05/16/22 Procedure Start Time: Procedure Stop Time: : Location of Patient: PreOp Indication: Acute Post-Operative Pain, Requested by Surgeon (Dr Resendiz) Sedation Type: Sedate with meaningful contact maintained Preparation: Sterile Prep, Sterile Dressing Position: Supine Catheter: Indwelling Needle Types: Pajunk Needle Gauge: 21 Ultrasound used to visualize needle placement: Yes Ultrasound used to observe medication spread: Yes Injectate: 0.5% Ropivacaine (see comment for volume) (15cc) Blood Aspirated: No Pain Paresthesia on Injection Noted: No Image Stored and Saved: Yes Events: Uneventful and Well Tolerated
--- NOTE | 2022-05-16 10:55 | P.ANPRN ---
Procedure Note - Anesthesia - Nerve Block Performed Right iPack Time Out Performed: Yes Date of Procedure: 05/16/22 Procedure Start Time: 10:07 Procedure Stop Time: 10:12 Location of Patient: PreOp Indication: Acute Post-Operative Pain, Requested by Surgeon (Dr Resendiz) Sedation Type: Sedate with meaningful contact maintained Preparation: Sterile Prep Position: Supine Catheter: None Needle Types: Pajunk Needle Gauge: 21 Ultrasound used to visualize needle placement: Yes Ultrasound used to observe medication spread: Yes Injectate: 0.5% Ropivacaine (see comment for volume) (15cc +5cc PF Normal saline) Blood Aspirated: No Pain Paresthesia on Injection Noted: No Resistance on Injection: Normal Image Stored and Saved: Yes Events: Uneventful and Well Tolerated
[2022-05-16] MEDS ORDERED: ceFAZolin 1,000 MG in SODIUM CHLORIDE 0.9% 1,000 ML IRRIGATION ONE (11:07)
[2022-05-16] MEDS ORDERED: NALOXONE 0.4 MG/ML 1 ML VIAL IV PRN (12:09)
[2022-05-16] MEDS ORDERED: HYDROmorphone 0.5 MG/0.5 ML SYRINGE IVP PRN ×2 (12:09)
[2022-05-16] MEDS ORDERED: HYDROcodone/APAP 5-325MG 1 EACH TAB PO PRN (12:09)
[2022-05-16] MEDS ORDERED: LACTATED RINGERS 1,000 ML IV ONE (12:10)
--- NOTE | 2022-05-16 12:37 | P.OP ---
Date of Procedure: 05/16/22 Preoperative Diagnosis: Right knee severe tricompartmental osteoarthrosis Postoperative Diagnosis: Same Procedure(s) Performed: Right total knee arthroplastycementedcruciate retaining Implants: Depuy Attune size 6 narrow cemented femoral component, size 6 cemented tibial component, 9 mm articular surface, 35 mm cemented patellar component. This is a cruciate retaining implant. Anesthesia: GETA, regional, spinal Surgeon: Yadiel Resendiz [employer] Worker #1: Liu Romeo Estimated Blood Loss (ml): 50 Pathology: other (Bone fragments) Condition: stable Disposition: PACU Indications for Procedure: The patient's a 67-year-old female who presents with progressive right knee pain secondary to osteoarthrosis despite conservative measures. A discussion of the benefits of operative intervention versus continued conservative measures was made with patient. She opted to proceed with surgery. Operative risks to include infection, neurovascular injury, development of blood clots, fracture, component loosening/failure and need for subsequent procedures was discussed. Informed consent was obtained. Operative Findings: As below Description of Procedure: The patient was brought to the operating room, and after induction of spinal anesthesia the right lower extremity was prepped and draped in a normal fashion. The spinal was not adequate, therefore she was converted to a general anesthetic. The tourniquet was inflated to 270 mmHg. A longitudinal incision extending 3 finger breaths above the superior pole of the patella extending to the medial aspect the tibial tubercle was then made. The skin and subcutaneous tissues were divided sharply. Electrocautery was used for hemostasis. A medial parapatellar arthrotomy was then performed. The medial soft tissues to include the superficial and deep portions of the medial collateral ligament as well as the medial hamstring tendons were elevated subperiosteally. The proximal medial tibia osteophytes were carefully removed. The patella was everted. The knee was flexed. A portion of the retropatellar fat pad was excised sharply. The anterior cruciate ligament was sacrificed. A starting hole was made in the distal femur 1 cm anterior to the posterior cruciate origin. An intramedullary femoral guide was gently inserted planning on 5 valgus distal cut with 9 mm distal resection. The cutting block was pinned in place. The distal cut was then made. The posterior referencing sizing guide was utilized. 3 of external rotation was built into the system and verified off the trans- epicondylar axis and the posterior condyles. I felt size 6 narrow was most appropriate. The cutting block was pinned in place. The anterior, posterior, and chamfer cuts were then made. The bone fragments were removed. A sulcus cut was then made with the appropriate guide. The trial size 6 narrow femoral component was then placed and was fully seated. There was good anterior to posterior and medial to lateral fit. The distal peg holes were then drilled. The trial component was then removed. Attention was then paid towards preparing the proximal tibia. An extra medullary guide was utilized in line with the tibial shaft and second metatarsal distally. A 7 posterior slope was planned. I planned on 2 mm resection from the medial compartment. The cutting block was pinned in place. The proximal tibial cut was then made. The bone was removed in one fragment. The remnants of the medial and lateral menisci were excised the capsule junction with electrocautery. The tibia sized most appropriately at size 6. The posterior osteophytes off the distal femur were carefully removed with a curved osteotome. The trial tibial and femoral components were placed along with a 9 millimeters articular surface. I was able to obtain full flexion and extension with good stability with varus and valgus stress. After several flexion and extension cycles, the tibial rotation was marked with electrocautery in line with the medial one third of the tibial tubercle. Attention was then paid towards preparing the patella. A patella reamer was utilized taking this down to 14 mm of bone stock. A good flush cut was made. The patella sized most appropriately at 35 millimeters. The peg holes were then drilled. The trial component was placed. The knee was taken through a range of motion. I had good patellofemoral tracking with no hands technique. The trial components were then removed. The tibia was prepared in the appropriate rotation with appropriate drill and keel punch. The flexion and extension gaps were checked and felt to be symmetric. The posterior soft tissues were injected with ropivacaine. The bony surfaces were prepared with pulsatile lavage and dried. The deep tibial component was then cemented in place and was fully seated. Excess cement was removed. The femoral component was cemented in place and was fully seated. Again excess cement was removed. The trial 9 millimeters surface was then inserted in the knee was put in full extension. The patella component was cemented in place. After the cement had sufficiently hardened, the knee was again taken through a range of motion. Again there was good stability in flexion and extension with varus and valgus stress. The trial articular surface was then removed. The final articular surface was placed and was impacted. Care was taken to avoid any soft tissue interposition. Pulsatile lavage was again utilized. The tourniquet was deflated with approximately 60 minutes total tourniquet time. There was minimal drainage therefore a deep drain was not placed. The medial parapatellar arthrotomy was then closed with #2 Ethibond suture. The subcutaneous tissues were reapproximated interrupted 2-0 Vicryl neri tures. The skin was reapproximated with 3-0 subarticular strata fix suture. Skin tape and adhesive was applied. A sterile dressing was applied. The patient was then awoken from sedation and transferred to recovery room in good condition. Blood loss was estimated at 50 milliliters. No complications were incurred. Sponge and needle counts were correct at the end the case. Liu GORE assisted during the major components this case to include exposure, bone resection, and implantation.
[2022-05-16] MEDS: ROPIVACAINE 0.2%-NS ON-Q PUMP 1,090 MG, EMPTY PAIN BALL 1 EACH MISCELLANE PRN ×2 (12:56→20:39)
--- NOTE | 2022-05-16 13:13 | XR ---
EXAMINATION TYPE: XR knee limited RT DATE OF EXAM: 05/16/2022 12:56 PM INDICATION: Patient age:Female; 67 years old; Reason for study: Evaluation for Postop abnormality and alignment; COMPARISON: None. TECHNIQUE: The Right knee(s) was examined in 3 projections. Frontal, lateral and oblique. FINDINGS: Status post left total knee arthroplasty changes with hardware in appropriate alignment a nd intact. No evidence of fracture. Subcutaneous lucencies and lucencies within the joint consistent with surgical changes. IMPRESSION: Status post total knee arthroplasty changes with hardware intact and appropriate alignment. No fractu res identified.
[2022-05-16] MEDS ORDERED: ALPRAZolam 0.25 MG TAB PO PRN (15:13)
[2022-05-16] MEDS ORDERED: DEXTROSE 50% SYRINGE 50 ML IVP PRN ×2 (15:18)
--- NOTE | 2022-05-16 16:05 | P.CONS ---
History of Present Illness - Reason for Consult Consult date: 05/16/22 Medical Management Requesting physician: Yadiel Resendiz - History of Present Illness History of Presenting Illness: Patient is a very pleasant 67-year-old female with a past medical history of hypertension, hyperlipidemia, hypothyroidism, peripheral neuropathy, COPD, obstructive sleep apnea, history of SVT status post cardiac ablation, breast cancer status post bilateral mastectomy, and osteoarthrosis. Patient currently admitted under orthopedic surgery team status post elective right total knee arthroplasty completed by Dr. Davidson secondary to right knee severe tricompartmental osteoarthrosis. We have been consulted for medical management throughout patient's hospitalization. Patient seen and fully evaluated at bedside. Patient postoperative day 0, she is doing well. She reports postoperative pain is controlled and denies having any headache, lightheadedness, dizziness, chest pain, palpitations, shortness of breath, or any other complaints at this time. Patient denies a history of DVTs or PEs. She is tolerating oral intake and denies having any postoperative nausea or vomiting. Patient states she is also taking metformin for weight control but denies history of diabetes mellitus. Review of systems: Pertinent positives and negatives as discussed in HPI, a complete review of systems was performed and all other systems are negative. Physical exam: Vital signs reviewed and stable. General: Nontoxic, no distress and appears stated age. Derm: Skin warm and dry, normal coloration for ethnicity. Head: Atraumatic, normocephalic and symmetric. Eyes: EOMs intact, no lid lag, and anicteric sclera Mouth: no lip lesions, mucus membranes moist Cardiovascular: regular rate and rhythm with normal S1S2, no murmur, positive posterior tibial pulses bilaterally, and cap refill < 2 seconds. Lungs: Respirations even, regular, and unlabored on room air. Lungs CTA bilaterally, no rhonchi, no rales, no wheezing, and no accessory muscle usage. Abdominal: soft, nontender to palpation, no guarding, no appreciable organomegaly Ext: No gross muscle atrophy, no edema, no contractures. Movement and sensation intact. Postoperative dressing and ice pack in place to left knee with on-Q pump in place Neuro: Speech clear, face symmetrical and CN II-XII grossly intact with no noted focal neuro deficits Psych: Alert and oriented to person, place, time, and situation. Appropriate and pleasant affect. Assessment and Plan of Care: Status post right total knee arthroplasty Right knee severe tricompartmental osteoarthrosis -Management per primary admitting orthopedic surgery team including pain management, DVT prophylaxis, wound care/dressing changes, weightbearing, and PT/OT. -Patient currently with DVT prophylaxis with Xarelto. Hypertension -Monitor vital signs and continue daily medication regimen with lisinopril Hyperlipidemia -Continue daily medication regimen with simvastatin. Hypothyroidism -Continue daily medication regimen with levothyroxine. Breast cancer Status post bilateral mastectomy with lymph node removal to left axillary region -No blood pressures are lab draws on left arm Thank you for allowing us to participate in the care of this pleasant patient. Do not hesitate to contact us with questions. Someone can be reached from the [facility] hospitalist group all hours of the day at [phone] or via [employer]. I reviewed the documentation as provided by the YULIANA above, who is the original author of this note. I agree with the documented assessment and plan, with the following changes: none Past Medical History Past Medical History: Cancer, Fibromyalgia, GERD/Reflux, Hyperlipidemia, Hypertension, Neurologic Disorder, Osteoarthritis (OA), Renal Disease, Sleep Apnea/CPAP/BIPAP, Supraventricular Tachycardia (SVT), Thyroid Disorder Additional Past Medical History / Comment(s): Peripheral neuropathy; Hepatitis C 1971; breast cancer 2008, MIGRAINES, SVT RESOLVED WITH ABLATION, , CHRONIC SINUSITIS AND ENVIRONMENTAL ALLERGIES, pt states she has had no significant issues with sleep apnea with wt loss. hasnt used bipap in 3 yrs. kidney issues since 2004 r/t NSAIDS. on metformin due to wt gain to help pt loose wt. + Covid 09/2021, History of Any Multi-Drug Resistant Organisms: None Reported Past Surgical History: Breast Surgery, Cardiac Ablation, EPS, Hysterectomy, Joint Replacement, Orthopedic Surgery, Tonsillectomy Additional Past Surgical History / Comment(s): Román hip replacement; breast i mplants; bilateral mastectomy. COLONOSCOPY, RT ROTATOR CUFF REPAIR, MOLE REMOVED FROM [facility], tls. bilateral shoulder replacement 2017.2018, bilateral cataracts with lenses 2018. rt eye surgery 2019 to remove something. had growth to right arm removed- benign Past Anesthesia/Blood Transfusion Reactions: Motion Sickness, Postoperative Nausea & Vomiting (PONV) Additional Past Anesthesia/Blood Transfusion Reaction / Comm: no hx blood tra nsfusion. use patch behind her ear for nausea works well.( scope patch). blood pressure has dropped after hip surgery. Smoking Status: Former smoker - Past Family History Sister(s) Family Medical History: Cancer Additional Family Medical History / Comment(s): breast and pancreas. another si ster with uterus cancer aggressive. another sister had DVT Mother Family Medical History: Congestive Heart Failure (CHF) Father Family Medical History: Congestive Heart Failure (CHF), CVA/TIA Medications and Allergies Home Medications Medication Instructions Recorded Confirmed Type Fexofenadine/Pseudoephedrine 1 tab PO QAM PRN 12/29/14 05/16/22 History [Calista-D 12 Hour Tablet] Furosemide [Lasix] 20 mg PO DAILY 12/29/14 05/16/22 History diphenhydrAMINE HCL [Benadryl] 25 mg PO HS 12/29/14 05/16/22 History lisinopriL [Prinivil] 10 mg PO BID 12/29/14 05/14/22 History DULoxetine HCL [Cymbalta] 60 mg PO BID 06/02/16 05/14/22 History Levothyroxine Sodium [Synthroid] 100 mcg PO QAM 01/22/18 05/16/22 History Simvastatin [Zocor] 20 mg PO HS 01/22/18 05/16/22 History flaxseed oiL [[place]-3 Flaxseed Oil] 1,000 mg PO DAILY 01/22/18 05/14/22 History ALPRAZolam [Xanax] 0.25 mg PO Q12H PRN 05/06/19 05/16/22 History Ascorbic Acid [Vitamin C] 500 mg PO BID 05/06/19 05/16/22 History Calcium Carbonate/Vitamin D3 1 each PO HS 05/06/19 05/16/22 History [Caltrate 600 Plus D3 20 Mcg (800 Iu)] Multivit-Min/Iron/Folic/Lutein 1 each PO DAILY 05/06/19 05/14/22 History [Centrum Silver Women Tablet] Omeprazole 20 mg PO QAM 05/06/19 05/14/22 History Gabapentin 300 mg PO DAILY 05/14/22 05/14/22 History Gabapentin 600 mg PO HS 05/14/22 05/16/22 History HYDROcodone/APAP 7.5-325MG [[place] 1 tab PO HS PRN 05/14/22 05/16/22 History 7.5-325] Montelukast Sodium [Singulair] 10 mg PO DAILY 05/14/22 05/16/22 History Risedronate Sodium [Actonel] 150 mg PO QMONTHLY 05/14/22 05/16/22 History Rizatriptan Odt [[employer]] 5 mg PO DIRECTED PRN 05/14/22 05/16/22 History metFORMIN HCL ER [Glucophage XR] 500 mg PO DAILY 05/14/22 05/16/22 History Apixaban [Eliquis] 2.5 mg PO BID #60 tab 05/17/22 Rx Allergies Allergy/AdvReac Type Severity Reaction Status Date / Time adhesive tape Allergy irritates Verified 05/14/22 11:52 skin,"paper tape is ok" Sulfa (Sulfonamide Allergy Unknown Verified 05/14/22 11:52 Antibiotics) Childhood NSAIDS (Non-Steroidal AdvReac Causes Verified 05/14/22 11:52 Anti-Inflamma Kidney Failure Physical Exam Osteopathic Statement: *. No significant issues noted on an osteopathic structural exam other than those noted in the History and Physical/Consult. Vitals: Vital Signs Temp Pulse Resp BP BP Pulse Ox 05/16/22 14:44 98.6 F 74 16 144/78 92 L 05/16/22 13:52 71 16 161/71 92 L 05/16/22 13:23 69 12 165/77 100 05/16/22 13:07 67 10 L 145/65 100 05/16/22 12:52 70 14 174/71 100 05/16/22 12:36 97.7 F 20 163/78 98 05/16/22 10:12 78 16 167/79 96 05/16/22 09:44 71 16 166/82 100 05/16/22 09:21 96.9 F L 81 16 180/79 98 Intake and Output 05/16/22 05/16/22 05/16/22 06:59 14:59 22:59 Intake Total 1250 Output Total 50 Balance 1200 Intake: IV 1250 Output: Estimated Blood Loss 50 Other: Weight 103.6 kg Results CBC & Chem 7: 05/17/22 06:51 05/17/22 06:51
[2022-05-16] MEDS: HYDROcodone/APAP 7.5-325MG 1 EACH TAB PO PRN ×2 (16:31→23:20)
[2022-05-16] MEDS ORDERED: INSULIN ASPART (NovoLOG) 100 UNIT/ML VIAL SQ SCH (17:30)
[2022-05-16] MEDS: SENNOSIDES-DOCUSATE SODIUM 1 EACH TAB PO SCH (22:08)
[2022-05-16] MEDS: ATORVASTATIN 10 MG TAB PO SCH (22:08)
[2022-05-16] MEDS: diphenhydrAMINE 25 MG CAP PO SCH (22:09)
[2022-05-16] MEDS: lisinopriL 10 MG TAB PO SCH (22:09)
[2022-05-16] MEDS: DULoxetine HCL 60 MG CAPSULE.DR PO SCH (22:09)
[2022-05-16] MEDS: GABAPENTIN 300 MG CAP PO SCH (23:20)
[2022-05-17] MEDS: HYDROcodone/APAP 7.5-325MG 1 EACH TAB PO PRN ×4 (05:19→19:07)
[2022-05-17] MEDS: LACTATED RINGERS 1,000 ML IV SCH (05:19)
[2022-05-17] MEDS: LEVOTHYROXINE 100 MCG TAB PO SCH (05:24)
--- NOTE | 2022-05-17 07:47 | P.PN ---
Progress Note - Text The patient is status post right adductor canal catheter placement. The catheter was placed for postoperative pain control, status post total right knee arthroplasty. Ropivacaine 0.2% is infusing at 8 mLs per hour. The patient has no complaints of right lower extremity numbness or weakness. Patient's VAS score is 4-5-10. Assessment: Patient's adductor canal catheter is in place and working adequately. Plan: continue infusion and adjust it as needed.
--- NOTE | 2022-05-17 08:53 | P.PN ---
Subjective Progress Note Date: 05/17/22 Principal diagnosis: Status post right total knee arthroplasty Patient evaluated at bedside, she is resting comfortably. She does notice an increase in pain, she feels the pain medication is not lasting 6 hours. She currently has no headaches, lightheadedness, chest pain or shortness of breath. Objective - Vital Signs Vital signs: Vital Signs Temp 97.8 F 05/17/22 08:00 Pulse 68 05/17/22 08:00 Resp 16 05/17/22 08:00 BP 145/78 05/17/22 08:00 Pulse Ox 95 05/17/22 08:00 FiO2 Intake & Output 05/16/22 05/17/22 05/17/22 18:59 06:59 18:59 Intake Total 1250 Output Total 270 Balance 980 Weight 103.6 kg Intake: IV 1250 Output: Urine 220 Estimated Blood Loss 50 Other: Voiding Method Toilet # Voids 1 - Exam Right lower extremity: Incision is clean, dry, and intact. The exofin fusion tape is in good condition. There is minimal soft tissue swelling and ecchymosis surrounding the medial and lateral aspects of the incision. Calf is soft, no tenderness with palpation. Plantar flexion, dorsiflexion, EHL, FHL are intact. Sensory exam to light touch throughout the extremity is intact, dorsal pedis pulses 2+. Assessment and Plan Assessment: Postoperative day #1 status post right total knee arthroplasty Plan: Pain control, continue with current medication, will adjust [place] to be giving every 4 hours DVT prophylaxis, continue use of oral anticoagulant in-house Wound care instructions discussed Medical recommendations appreciated Encourage incentive spirometer PT/OT evaluation Discharge planning: With patient's pain, would like to keep patient in-house with plan for discharge home on 05/18/2022 Time with Patient: Less than 30
[2022-05-17] MEDS: FUROSEMIDE 20 MG TAB PO SCH (09:27)
[2022-05-17] MEDS: DULoxetine HCL 60 MG CAPSULE.DR PO SCH ×2 (09:27→21:13)
[2022-05-17] MEDS: lisinopriL 10 MG TAB PO SCH ×2 (09:27→21:14)
[2022-05-17] MEDS: MONTELUKAST 10 MG TAB PO SCH (09:28)
[2022-05-17] MEDS: GABAPENTIN 300 MG CAP PO SCH ×2 (09:28→21:14)
[2022-05-17] MEDS: RIVAROXABAN 10 MG TAB PO SCH (09:28)
[2022-05-17] MEDS: PANTOPRAZOLE 40 MG TABLET PO SCH (09:28)
[2022-05-17] MEDS ORDERED: SODIUM CHLORIDE 0.9% 500 ML 500 ML IV ONE (12:24)
--- NOTE | 2022-05-17 12:24 | P.PN ---
Subjective Progress Note Date: 05/17/22 Hospital course: Patient is a very pleasant 67-year-old female with a past medical history of hypertension, hyperlipidemia, hypothyroidism, peripheral neuropathy, COPD, obstructive sleep apnea, history of SVT status post cardiac ablation, breast cancer status post bilateral mastectomy, and osteoarthrosis. Patient currently admitted under orthopedic surgery team status post elective right total knee arthroplasty completed by Dr. Davidson secondary to right knee severe tricompartmental osteoarthrosis. We have been consulted for medical management throughout patient's hospitalization. Physical exam: Patient seen and fully evaluated at bedside this morning. Patient reported mild dizziness upon walking to restroom this morning actually getting up. Patient reports she was assisted from lying to standing position and did feel a little dizzy/lightheaded. Nursing staff obtained orthostatic vitals and patient was positive for orthostatic hypotension. This is believed to be adverse reaction of pain medication. Patient being provided with a 500 mL bolus of 0.9% normal saline and educated on the importance of changing positions slowly. Recommend decreasing pain medication to Tylenol once pain is controlled. Patient denies having any other complaints or concerns at this time including headache, changes in vision or hearing, chest pain or palpitations, shortness of breath, nausea, or diaphoresis. Patient reports full resolution of dizziness/lightheadedness stating only lasting a short period when she first stood up this morning. Morning labs reviewed and stable. Vital signs reviewed and stable. General: Nontoxic, no distress and appears stated age. Derm: Skin warm and dry, normal coloration for ethnicity. Head: Atraumatic, normocephalic and symmetric. Eyes: EOMs intact, no lid lag, and anicteric sclera Mouth: no lip lesions, mucus membranes moist Cardiovascular: regular rate and rhythm with normal S1S2, no murmur, positive posterior tibial pulses bilaterally, and cap refill < 2 seconds. Lungs: Respirations even, regular, and unlabored on room air. Lungs CTA bilaterally, no rhonchi, no rales, no wheezing, and no accessory muscle usage. Abdominal: soft, nontender to palpation, no guarding, no appreciable organomegaly Ext: No gross muscle atrophy, no edema, no contractures. Movement and sensation intact. Postoperative dressing and ice pack in place to left knee with on-Q pum p in place Neuro: Speech clear, face symmetrical and CN II-XII grossly intact with no noted focal neuro deficits Psych: Alert and oriented to person, place, time, and situation. Appropriate and pleasant affect. Assessment and Plan of Care: Orthostatic hypotension -Likely adverse reaction of pain medications. Patient being given a 500 mL bolus of normal saline, KATYA hose to left lower extremity, and educated on the importance of changing positions slowly. At this time we will continue with opioid medications during acute postoperative period, recommend changing to Tylenol once pain is better controlled. -Fall precautions. -Continue close monitoring with repeat vital signs as needed. Status post right total knee arthroplasty Right knee severe tricompartmental osteoarthrosis -Management per primary admitting orthopedic surgery team including pain management, DVT prophylaxis, wound care/dressing changes, weightbearing, and PT/OT. -Patient currently with DVT prophylaxis with Xarelto. Acute postoperative blood loss anemia, expected finding. -Hemoglobin stable at 11.6. Hypertension -Monitor vital signs and continue daily medication regimen with lisinopril Hyperlipidemia -Continue daily medication regimen with simvastatin. Hypothyroidism -Continue daily medication regimen with levothyroxine. Breast cancer Status post bilateral mastectomy with lymph node removal to left axillary region -No blood pressures are lab draws on left arm Thank you for allowing us to participate in the care of this pleasant patient. Do not hesitate to contact us with questions. Someone can be reached from the [facility] hospitalist group all hours of the day at [phone] or via [email or web address]. I reviewed the documentation as provided by the YULIANA above, who is the original author of this note. I agree with the documented assessment and plan, with the following changes: none Objective - Vital Signs Vital signs: Vital Signs Temp 97.8 F 05/17/22 08:00 Pulse 102 H 05/17/22 09:47 Resp 16 05/17/22 08:00 BP 83/50 05/17/22 09:47 Pulse Ox 97 05/17/22 09:47 FiO2 Intake & Output 05/16/22 05/17/22 05/17/22 18:59 06:59 18:59 Intake Total 1250 Output Total 270 Balance 980 Weight 103.6 kg Intake: IV 1250 Output: Urine 220 Estimated Blood Loss 50 Other: Voiding Method Toilet # Voids 1 - Labs CBC & Chem 7: 05/17/22 06:51 05/17/22 06:51
[2022-05-17 12:50] LABS: Basophils # (A) 0.03 X 10*3/uL (0.00-0.10); Basophils % (A) 0.3 %; Eosinophils # (A) 0.02 X 10*3/uL (0.04-0.35); Eosinophils % (A) 0.2 %; HCT 35.4 % (37.2-46.3); HGB 11.6 g/dL (12.0-15.0); Immature Grans, Automated 0.2 %; Lymphocytes # (A) 1.49 X 10*3/uL (0.90-5.00); Lymphocytes % (A) 15.5 %; MCHC 32.8 g/dL (32.0-37.0); MCV 91.5 fL (80.0-97.0); Mean Platelet Volume 9.8 fL (9.5-12.2); Monocytes # (A) 0.75 X 10*3/uL (0.20-1.00); Monocytes % (A) 7.8 %; NRBC Per 100 WBC 0 /100 WBCS (0.0-0.0); Neutrophils # (A) 7.31 X 10*3/uL (1.80-7.70); Platelet Count 256 X 10*3/uL (140-440); RBC 3.87 X 10*6/uL (4.10-5.20); RDW 12.7 % (11.5-14.5); WBC 9.62 X 10*3/uL (4.50-10.00)
[2022-05-17 13:53] LABS: African American GFR (CKD) 53.4 (60.0-200.0); Albumin 3.8 g/dL (3.8-4.9); Albumin/Globulin Ratio 1.81 (1.60-3.17); Anion Gap 8.8 mmol/L (10.00-18.00); BUN/Creat Ratio 14.83 Ratio (12.00-20.00); Blood Urea Nitrogen 17.8 mg/dL (9.0-27.0); Calcium 9.3 mg/dL (8.7-10.3); Carbon Dioxide 25.2 mmol/L (20.0-27.5); Globulin 2.1 g/dL (1.6-3.3); Magnesium 1.9 mg/dL (1.5-2.4); Non-African American GFR(CKD) 46.1 (60.0-200.0); Potassium 4.6 mmol/L (3.5-5.5); Total Bilirubin 0.4 mg/dL (0.30-1.20); Total Protein 5.9 g/dL (6.2-8.2)
[2022-05-17] MEDS: SODIUM CHLORIDE 0.9% 1,000 ML IV SCH (14:40)
--- NOTE | 2022-05-17 20:24 | XR ---
EXAMINATION TYPE: XR chest 1V DATE OF EXAM: 05/17/2022 COMPARISON: 12/29/2014 HISTORY: Hypoxemia TECHNIQUE: FINDINGS: There is no heart failure nor confluent pneumonic infiltrate. Costophrenic angles are clear . There is slight elevated right diaphragm. Bilateral shoulder prosthesis. IMPRESSION: Poor inspiration. No pulmonary consolidation or heart failure. No adverse change.
[2022-05-17] MEDS: SENNOSIDES-DOCUSATE SODIUM 1 EACH TAB PO SCH (21:14)
[2022-05-17] MEDS: diphenhydrAMINE 25 MG CAP PO SCH (21:14)
[2022-05-17] MEDS: ATORVASTATIN 10 MG TAB PO SCH (21:14)
[2022-05-18] MEDS: HYDROcodone/APAP 7.5-325MG 1 EACH TAB PO PRN ×5 (02:15→22:11)
[2022-05-18] MEDS: SODIUM CHLORIDE 0.9% 1,000 ML IV SCH ×2 (06:52→13:41)
[2022-05-18] MEDS: LEVOTHYROXINE 100 MCG TAB PO SCH (06:52)
[2022-05-18] MEDS: RIVAROXABAN 10 MG TAB PO SCH (07:47)
[2022-05-18] MEDS: FUROSEMIDE 20 MG TAB PO SCH (07:47)
[2022-05-18] MEDS: lisinopriL 10 MG TAB PO SCH ×2 (07:47→21:01)
[2022-05-18] MEDS: DULoxetine HCL 60 MG CAPSULE.DR PO SCH ×2 (07:48→21:01)
[2022-05-18] MEDS: PANTOPRAZOLE 40 MG TABLET PO SCH (07:48)
[2022-05-18] MEDS: MONTELUKAST 10 MG TAB PO SCH (07:48)
[2022-05-18] MEDS: GABAPENTIN 300 MG CAP PO SCH ×2 (07:49→21:00)
[2022-05-18] MEDS ORDERED: MAGNESIUM CITRATE 296 ML BOTTLE PO ONE (10:00)
--- NOTE | 2022-05-18 13:03 | P.PN ---
Subjective Progress Note Date: 05/18/22 Hospital course: Patient is a very pleasant 67-year-old female with a past medical history of hypertension, hyperlipidemia, hypothyroidism, peripheral neuropathy, COPD, obstructive sleep apnea, history of SVT status post cardiac ablation, breast cancer status post bilateral mastectomy, and osteoarthrosis. Patient currently admitted under orthopedic surgery team status post elective right total knee arthroplasty completed by Dr. Davidson secondary to right knee severe tricompartmental osteoarthrosis. We have been consulted for medical management throughout patient's hospitalization. Physical exam: Patient seen and fully evaluated at bedside this morning. Overnight patient had episode of hypoxia and was reportedly found to have oxygen saturation of 81% on room air requiring oxygen supplementation. SpO2 increasing to 90% on 2 L. A chest x-ray was completed at that time showing poor inspiration negative for pulmonary consolidation or heart failure. Patient denied experiencing any shortness of breath or chest pain. Patient remained on oxygen overnight and this morning was completely weaned off with SpO2 of 96% on room air at rest and 94% with ambulation to and from restroom. Patient was strongly encouraged to use incentive spirometer 10-15 times hourly while awake. Patient reports that she was using throughout the day but not hourly. Patient reports since episode of hypoxia she has been using 10-15 times per hour and verbalized risks of developing pneumonia and/or atelectasis is not using as encouraged. Patient states that she would like to go to a rehab, [facility] on the [place]. She states t hat she plans on discussing with orthopedic surgery team because she is continuing to have pain in her right knee and difficulties with ambulation and does not feel she is able to go home and will be able to care for herself as she did previously. Vital signs reviewed and stable. General: Nontoxic, no distress and appears stated age. Derm: Skin warm and dry, normal coloration for ethnicity. Head: Atraumatic, normocephalic and symmetric. Eyes: EOMs intact, no lid lag, and anicteric sclera Mouth: no lip lesions, mucus membranes moist Cardiovascular: regular rate and rhythm with normal S1S2, no murmur, positive posterior tibial pulses bilaterally, and cap refill < 2 seconds. Lungs: Respirations even, regular, and unlabored on room air. Lungs CTA bilaterally, no rhonchi, no rales, no wheezing, and no accessory muscle usage. Abdominal: soft, nontender to palpation, no guarding, no appreciable organomegaly Ext: No gross muscle atrophy, no edema, no contractures. Movement and sensation intact. Postoperative dressing and ice pack in place to left knee with on-Q pump in place Neuro: Speech clear, face symmetrical and CN II-XII grossly intact with no noted focal neuro deficits Psych: Alert and oriented to person, place, time, and situation. Appropriate and pleasant affect. Assessment and Plan of Care Orthostatic hypotension -Likely adverse reaction of pain medications. Patient being given a 500 mL bolus of normal saline, KATYA hose to left lower extremity, and educated on the importance of changing positions slowly. At this time we will continue with opioid medications during acute postoperative period, recommend changing to T ylenol once pain is better controlled. -Fall precautions. -Continue close monitoring with repeat vital signs as needed. Status post right total knee arthroplasty Right knee severe tricompartmental osteoarthrosis -Management per primary admitting orthopedic surgery team including pain management, DVT prophylaxis, wound care/dressing changes, weightbearing, and PT/OT. -Patient currently with DVT prophylaxis with Xarelto. Acute postoperative blood loss anemia, expected finding. -Hemoglobin stable at 11.6. Hypertension -Monitor vital signs and continue daily medication regimen with lisinopril Hyperlipidemia -Continue daily medication regimen with simvastatin. Hypothyroidism -Continue daily medication regimen with levothyroxine. Breast cancer Status post bilateral mastectomy with lymph node removal to left axillary region -No blood pressures are lab draws on left arm Thank you for allowing us to participate in the care of this pleasant patient. Do not hesitate to contact us with questions. Someone can be reached from the [facility] hospitalist group all hours of the day at [phone] or via [employer]. I reviewed the documentation as provided by the YULIANA above, who is the original author of this note. I agree with the documented assessment and plan, with the following changes: none Objective - Vital Signs Vital signs: Vital Signs Temp 98.7 F 05/18/22 08:04 Pulse 99 05/18/22 08:04 Resp 18 05/18/22 08:04 BP 158/84 05/18/22 08:04 Pulse Ox 94 L 05/18/22 08:04 FiO2 Intake & Output 05/17/22 05/18/22 05/18/22 18:59 06:59 18:59 Other: Voiding Method Toilet Toilet Toilet Bedside Commode Bedside Commode # Voids 4 - Labs CBC & Chem 7: 05/17/22 06:51 05/17/22 06:51 Labs: Abnormal Lab Results - Last 24 Hours (Table) 05/17/22 05/17/22 Range/Units 06:51 06:51 RBC 3.87 L (4.10-5.20) X 10*6/uL Hgb 11.6 L (12.0-15.0) g/dL Hct 35.4 L (37.2-46.3) % Eosinophils # 0.02 L (0.04-0.35) X 10*3/uL Sodium 134 L (135-145) mmol/L Anion Gap 8.80 L (10.00-18.00) mmol/L Est GFR (CKD-EPI)AfAm 53.4 L (60.0-200.0) Est GFR (CKD-EPI)NonAf 46.1 L (60.0-200.0) Total Protein 5.9 L (6.2-8.2) g/dL
--- NOTE | 2022-05-18 13:26 | P.PN ---
Subjective Progress Note Date: 05/18/22 Principal diagnosis: Status post right total knee arthroplasty Patient evaluated at bedside, patient sister is present today. She has a little bit nervous about going home, her sister plans to stay with her. We discussed the possibility rehab. Pain is better since yesterday. She currently has no headaches, lightheadedness, chest pain or shortness of breath. Objective - Vital Signs Vital signs: Vital Signs Temp 98.7 F 05/18/22 08:04 Pulse 99 05/18/22 08:04 Resp 18 05/18/22 08:04 BP 158/84 05/18/22 08:04 Pulse Ox 96 05/18/22 11:19 FiO2 Intake & Output 05/17/22 05/18/22 05/18/22 18:59 06:59 18:59 Intake Total 500 Balance 500 Intake: Oral 500 Other: Voiding Method Toilet Toilet Toilet Bedside Commode Bedside Commode # Voids 4 - Exam Right lower extremity: Incision is clean, dry, and intact. The exofin fusion tape is in good condition. There is minimal soft tissue swelling and ecchymosis surrounding the medial and lateral aspects of the incision. Calf is soft, no tenderness with palpation. Plantar flexion, dorsiflexion, EHL, FHL are intact. Sensory exam to light touch throughout the extremity is intact, dorsal pedis pulses 2+. - Labs CBC & Chem 7: 05/17/22 06:51 05/17/22 06:51 Labs: Abnormal Lab Results - Last 24 Hours (Table) 05/17/22 Range/Units 06:51 Sodium 134 L (135-145) mmol/L Anion Gap 8.80 L (10.00-18.00) mmol/L Est GFR (CKD-EPI)AfAm 53.4 L (60.0-200.0) Est GFR (CKD-EPI)NonAf 46.1 L (60.0-200.0) Total Protein 5.9 L (6.2-8.2) g/dL Assessment and Plan Assessment: Postoperative day #2 status post right total knee arthroplasty Plan: Pain control, continue with current medication, will adjust [place] to be giving every 4 hours DVT prophylaxis, continue use of oral anticoagulant in-house Wound care instructions discussed Medical recommendations appreciated Encourage incentive spirometer PT/OT evaluation Discharge planning: discussed with the patient and her sister different options were discharge. I would like to give her one more night in the hospital and have her work with physical therapy again tomorrow and we can make a decision. Case management will also be around to help with discharge plans. Time with Patient: Less than 30
[2022-05-18] MEDS: SENNOSIDES-DOCUSATE SODIUM 1 EACH TAB PO SCH (21:00)
[2022-05-18] MEDS: ATORVASTATIN 10 MG TAB PO SCH (21:01)
[2022-05-18] MEDS: diphenhydrAMINE 25 MG CAP PO SCH (21:01)
[2022-05-19] MEDS: HYDROcodone/APAP 7.5-325MG 1 EACH TAB PO PRN ×2 (03:50→12:33)
[2022-05-19] MEDS: SODIUM CHLORIDE 0.9% 1,000 ML IV SCH (06:03)
[2022-05-19] MEDS: LEVOTHYROXINE 100 MCG TAB PO SCH (06:22)
[2022-05-19] MEDS: PANTOPRAZOLE 40 MG TABLET PO SCH (08:06)
[2022-05-19] MEDS: FUROSEMIDE 20 MG TAB PO SCH (08:06)
[2022-05-19] MEDS: RIVAROXABAN 10 MG TAB PO SCH (08:06)
[2022-05-19] MEDS: MONTELUKAST 10 MG TAB PO SCH (08:06)
[2022-05-19] MEDS: GABAPENTIN 300 MG CAP PO SCH (08:06)
[2022-05-19] MEDS: DULoxetine HCL 60 MG CAPSULE.DR PO SCH (08:06)
[2022-05-19] MEDS: lisinopriL 10 MG TAB PO SCH (08:06)
[2022-05-19 08:42] VITALS: BP 128/68; PULSE 95; RESP 16; TEMP 98.2
[2022-05-19] MEDS ORDERED: PROPOFOL 10 MG/ML 20 ML VIAL IV ONE (10:28)
[2022-05-19] MEDS ORDERED: LIDOCAINE 2% INJ 20 MG/ML (2 ML VIAL) ONE (10:28)
[2022-05-19] MEDS ORDERED: MIDAZOLAM 2 MG/2 ML VIAL ONE (10:28)
[2022-05-19] MEDS ORDERED: ROPIVACAINE 5 MG/ML 30 ML VIAL ONE (10:28)
[2022-05-19] MEDS ORDERED: SODIUM CHLORIDE 0.9% (PF) 10 ML VIAL ONE (10:28)
[2022-05-19] MEDS ORDERED: PHENYLEPHRINE-0.9% NACL SYG 1,000 MCG/10 ML SYRINGE ONE (10:28)
[2022-05-19] MEDS ORDERED: fentaNYL (PF) 50 MCG/ML 2 ML AMP ONE (10:28)
[2022-05-19] MEDS ORDERED: SUCCINYLCHOLINE CHLORIDE 200 MG/10 ML VIAL IV ONE (10:28)
[2022-05-19] MEDS ORDERED: TRANEXAMIC ACID IN NACL,ISO-OS 1,000 MG/100 ML BAG ONE (10:28)
--- NOTE | 2022-05-19 11:12 | P.PN ---
Subjective Progress Note Date: 05/19/22 Principal diagnosis: Status post right total knee arthroplasty Patient evaluated at bedside, family at bedside. She is doing a lot better today. She would like to be discharged home. She currently has no headaches, lightheadedness, chest pain or shortness of breath. Objective - Vital Signs Vital signs: Vital Signs Temp 98.2 F 05/19/22 08:00 Pulse 95 05/19/22 08:00 Resp 16 05/19/22 08:00 BP 128/68 05/19/22 08:00 Pulse Ox 96 05/19/22 08:00 FiO2 Intake & Output 05/18/22 05/19/22 05/19/22 18:59 06:59 18:59 Intake Total 680 Balance 680 Intake: Oral 680 Other: Voiding Method Toilet Toilet Bedside Commode # Voids 3 2 - Exam Right lower extremity: Incision is clean, dry, and intact. The exofin fusion tape is in good condition. There is minimal soft tissue swelling and ecchymosis surrounding the medial and lateral aspects of the incision. Calf is soft, no tenderness with palpation. Plantar flexion, dorsiflexion, EHL, FHL are intact. Sensory exam to light touch throughout the extremity is intact, dorsal pedis pulses 2+. - Labs CBC & Chem 7: 05/17/22 06:51 05/17/22 06:51 Assessment and Plan Assessment: Postoperative day #3 status post right total knee arthroplasty Plan: Pain control, plan for discharge home on [place] DVT prophylaxis, Eliquis 2.5 mg twice a day for 14 days Wound care instructions discussed Medical recommendations appreciated Encourage incentive spirometer PT/OT evaluation Discharge planning: Plan for discharge home with home healthcare today Time with Patient: Less than 30
--- NOTE | 2022-05-19 11:23 | P.DS ---
Providers Date of admission: 05/19/22 07:05 Expected date of discharge: 05/19/22 Attending physician: Yadiel Resendiz Consults: 05/16/22 12:12 Consult Physician Routine Consulting Provider: Guadalupe Terry Consult Reason/Comments: Medical Management s/p right total knee arthroplasty Do you want consulting provider notified?: Yes [facility] Course: Date of admission: 05/16/2022 Date of discharge: 05/19/2022 Admission diagnosis: Status post right total knee arthroplasty Discharge diagnosis: Same Attending physician: Dr. Resendiz Surgical procedures: Right total knee arthroplasty Brief history: Patient is a 67-year-old female with a history of progressive primary right knee osteoarthritis. At this point patient has failed conser vative treatment measures and has opted to proceed with a elective right total knee arthroplasty. Hospital course: Details of patient's surgery can be found in operative report. Patient tolerated the procedure well and was subsequently transported to orthopedic floor. Patient's orthopeidc and medical care was provided daily. Patient had daily laboratory tests performed for evaluation of overall blood counts. Patient had daily physical therapy to include strengthening range of motion as well as education with walker ambulation. Patient was treated with ELiquis for their postoperative DVT prophylaxis during their inpatient stay. Patient was noted to have a relatively uneventful postoperative course. Patient reported satisfactory pain control with oral pain medications by postoperative day 2. Patient showed satisfactory progress with physical therapy. Patient moved steadily through the program and had no difficulty meeting the goals by postoperative day 2. Given patient's otherwise satisfactory course and having met physical therapy goals, plan is to discharge patient home on postoperative day 3. Discharge condition/disposition: Patient will be discharged home in stable cond ition. Discharge medications: Instructions are given on resumption of patient's normal daily medications per primary care recommendation, in addition patient will be prescribed . Discharge instructions: 1. Wound care and infection precautions, keep incision dry and covered while showering, no lotions, creams, moisturizers. No soaking, tubs, pools, hottubs. Do not scrub over the incision. 2. Weight-bear as tolerated with walker / cane until follow-up. 3. Ice and elevate when necessary. Do not exceed 20 minutes per hour with ice pack. 4. Utilize compression sleeve until seen at first follow up appointment. 5. Visiting nursing care. 6. Home physical therapy. 7. Pain meds and anticoagulants per prescription. 8. Pain medication has potential to cause constipation. Increase oral fluid and fiber intake. Contact primary care provider if you have not had a bowel movement within 48 hours after discharge 9. No anti-inflammatory medication until discussed at first post operative visit, this including Motrin, Aleve, Mobic, Diclofenac. 10. Follow up in office at 2 weeks postop with Liborio Mehta PA-C/Liu Dash 11. Follow up with your primary care doctor 7-10 days after discharge. 12. Contact [facility] with any questions, . Procedures: Right total knee arthroplasty Patient Condition at Discharge: Good Plan - Discharge Summary Discharge Rx Participant: Yes New Discharge Prescriptions: New Apixaban [Eliquis] 2.5 mg PO BID #60 tab polyethylene glycoL 3350 [Miralax] 17 gm PO DAILY PRN #21 packet PRN Reason: Constipation HYDROcodone/APAP 7.5-325MG [[place] 7.5] 1 each PO Q4HR PRN #42 tab PRN Reason: Pain Sennosides/Docusate Sodium [Senna-S 8.6-50 mg Tablet] 1 each PO DAILY PRN #30 tablet PRN Reason: Constipation No Action diphenhydrAMINE HCL [Benadryl] 25 mg PO HS Fexofenadine/Pseudoephedrine [Calista-D 12 Hour Tablet] 1 tab PO QAM PRN PRN Reason: Allergy Symptoms Furosemide [Lasix] 20 mg PO DAILY lisinopriL [Prinivil] 10 mg PO BID DULoxetine HCL [Cymbalta] 60 mg PO BID Levothyroxine Sodium [Synthroid] 100 mcg PO QAM flaxseed oiL [[place]-3 Flaxseed Oil] 1,000 mg PO DAILY Simvastatin [Zocor] 20 mg PO HS Omeprazole 20 mg PO QAM ALPRAZolam [Xanax] 0.25 mg PO Q12H PRN PRN Reason: Anxiety Ascorbic Acid [Vitamin C] 500 mg PO BID Calcium Carbonate/Vitamin D3 [Caltrate 600 Plus D3 20 Mcg (800 Iu)] 1 each PO HS Multivit-Min/Iron/Folic/Lutein [Centrum Silver Women Tablet] 1 each PO DAILY metFORMIN HCL ER [Glucophage XR] 500 mg PO DAILY Risedronate Sodium [Actonel] 150 mg PO QMONTHLY Rizatriptan Odt [Maxalt Extractor Plant Operator] 5 mg PO DIRECTED PRN PRN Reason: Migraine Headache HYDROcodone/APAP 7.5-325MG [[place] 7.5-325] 1 tab PO HS PRN PRN Reason: Pain Gabapentin 600 mg PO HS Montelukast Sodium [Singulair] 10 mg PO DAILY Gabapentin 300 mg PO DAILY Discharge Medication List Fexofenadine/Pseudoephedrine [Calista-D 12 Hour Tablet] 1 tab PO QAM PRN 12/29/14 [History] Furosemide [Lasix] 20 mg PO DAILY 12/29/14 [History] diphenhydrAMINE HCL [Benadryl] 25 mg PO HS 12/29/14 [History] lisinopriL [Prinivil] 10 mg PO BID 12/29/14 [History] DULoxetine HCL [Cymbalta] 60 mg PO BID 06/02/16 [History] Levothyroxine Sodium [Synthroid] 100 mcg PO QAM 01/22/18 [History] Simvastatin [Zocor] 20 mg PO HS 01/22/18 [History] flaxseed oiL [[place]-3 Flaxseed Oil] 1,000 mg PO DAILY 01/22/18 [History] ALPRAZolam [Xanax] 0.25 mg PO Q12H PRN 05/06/19 [History] Ascorbic Acid [Vitamin C] 500 mg PO BID 05/06/19 [History] Calcium Carbonate/Vitamin D3 [Caltrate 600 Plus D3 20 Mcg (800 Iu)] 1 each PO HS 05/06/19 [History] Multivit-Min/Iron/Folic/Lutein [Centrum Silver Women Tablet] 1 each PO DAILY 05/06/19 [History] Omeprazole 20 mg PO QAM 05/06/19 [History] Gabapentin 300 mg PO DAILY 05/14/22 [History] Gabapentin 600 mg PO HS 05/14/22 [History] HYDROcodone/APAP 7.5-325MG [[place] 7.5-325] 1 tab PO HS PRN 05/14/22 [History] Montelukast Sodium [Singulair] 10 mg PO DAILY 05/14/22 [History] Risedronate Sodium [Actonel] 150 mg PO QMONTHLY 05/14/22 [History] Rizatriptan Odt [Maxalt Extractor Plant Operator] 5 mg PO DIRECTED PRN 05/14/22 [History] metFORMIN HCL ER [Glucophage XR] 500 mg PO DAILY 05/14/22 [History] Apixaban [Eliquis] 2.5 mg PO BID #60 tab 05/17/22 [Rx] HYDROcodone/APAP 7.5-325MG [[place] 7.5] 1 each PO Q4HR PRN #42 tab 05/19/22 [Rx] Sennosides/Docusate Sodium [Senna-S 8.6-50 mg Tablet] 1 each PO DAILY PRN #30 tablet 05/19/22 [Rx] polyethylene glycoL 3350 [Miralax] 17 gm PO DAILY PRN #21 packet 05/19/22 [Rx] Follow up Appointment(s)/Referral(s): Liu Romeo, PAC [PHYSICIAN RADIO CONTROL CRANE OPERATOR] - [address] [facility],Equipment [NON-STAFF] - As Needed (*Please call [facility] once home to arrange delivery of the Continuous Passive Motion (CPM) machine. ) [facility] [NON-STAFF] - 1-2 Days ([facility] will call you to schedule your in home physical therapy and nursing visits. ) Patient Instructions/Handouts: Knee Replacement (DC) Activity/Diet/Wound Care/Special Instructions: Orthopedic Discharge Instructions: 1. Wound care and infection precautions, keep incision dry and covered while sh owering, no lotions, creams, moisturizers. No soaking, pools, hot tubs. Do not scrub over incision. 2. Weight-bear as tolerated with walker / cane until follow-up. 3. Ice and elevate when necessary. Do not exceed 20 minutes per hour with ice pack. 4. Utilize compression sleeve until seen at first follow up appointment. 5. Pain meds and anticoagulants per prescription. 6. Pain medication has potential to cause constipation. Increase oral fluid and fiber intake. Contact primary care provider if you have not had a bowel movement within 48 hours after discharge. 7. No anti-inflammatory medication until discussed at first post operative visit, this including Motrin, Aleve, Mobic, Diclofenac. 8. Follow up in office at 2 weeks postop with Liborio Mehta PA-C/Liu Romeo PA-C 9. Follow up with your primary care doctor 7-10 days after discharge. 10. Contact [facility] with any questions, . Discharge Disposition: HOME WITH HOME HEALTH SERVICES
[2022-05-19 11:29] LABS: Basophils # (A) 0.05 X 10*3/uL (0.00-0.10); Basophils % (A) 0.6 %; Eosinophils # (A) 0.12 X 10*3/uL (0.04-0.35); Eosinophils % (A) 1.5 %; HCT 34.7 % (37.2-46.3); HGB 11.5 g/dL (12.0-15.0); Immature Grans, Automated 0.6 %; Lymphocytes # (A) 1.78 X 10*3/uL (0.90-5.00); Lymphocytes % (A) 21.6 %; MCHC 33.1 g/dL (32.0-37.0); MCV 90.6 fL (80.0-97.0); Mean Platelet Volume 9.8 fL (9.5-12.2); Monocytes # (A) 0.65 X 10*3/uL (0.20-1.00); Monocytes % (A) 7.9 %; NRBC Per 100 WBC 0 /100 WBCS (0.0-0.0); Neutrophils % (A) 67.8 %; Platelet Count 262 X 10*3/uL (140-440); RBC 3.83 X 10*6/uL (4.10-5.20); RDW 12.8 % (11.5-14.5); WBC 8.25 X 10*3/uL (4.50-10.00)
--- NOTE | 2022-05-19 13:14 | P.PN ---
Subjective Progress Note Date: 05/19/22 Hospital course: Patient is a very pleasant 67-year-old female with a past medical history of hypertension, hyperlipidemia, hypothyroidism, peripheral neuropathy, COPD, obstructive sleep apnea, history of SVT status post cardiac ablation, breast cancer status post bilateral mastectomy, and osteoarthrosis. Patient currently admitted under orthopedic surgery team status post elective right total knee arthroplasty completed by Dr. Davidson secondary to right knee severe tricompartmental osteoarthrosis. We have been consulted for medical management throughout patient's hospitalization. Physical exam: Patient seen and fully evaluated at bedside this morning. Patient has postoperative day 3 and reports feeling great this morning. Patient reports she has been ambulating to and from restroom without difficulties and even did the stairs today with physical therapy and stated she did well. Patient states that she feels that she is able to go home now and does not require [facility] facility treatment. Medically patient is stable and is stable for discharge home once cleared by primary admitting orthopedic surgical team. Vital signs reviewed and stable. General: Nontoxic, no distress and appears stated age. Derm: Skin warm and dry, normal coloration for ethnicity. Head: Atraumatic, normocephalic and symmetric. Eyes: EOMs intact, no lid lag, and anicteric sclera Mouth: no lip lesions, mucus membranes moist Cardiovascular: regular rate and rhythm with normal S1S2, no murmur, positive posterior tibial pulses bilaterally, and cap refill < 2 seconds. Lungs: Respirations even, regular, and unlabored on room air. Lungs CTA bilaterally, no rhonchi, no rales, no wheezing, and no accessory muscle usage. Abdominal: soft, nontender to palpation, no guarding, no appreciable organomegaly Ext: No gross muscle atrophy, no edema, no contractures. Movement and sensation intact. Postoperative dressing and ice pack in place to left knee with on-Q pump in place Neuro: Speech clear, face symmetrical and CN II-XII grossly intact with no noted focal neuro deficits Psych: Alert and oriented to person, place, time, and situation. Appropriate and pleasant affect. Assessment and Plan of Care Orthostatic hypotension, resolved. Believed to have resulted secondary to adverse effects of opioids. Status post right total knee arthroplasty Right knee severe tricompartmental osteoarthrosis -Management per primary admitting orthopedic surgery team including pain management, DVT prophylaxis, wound care/dressing changes, weightbearing, and PT/OT. -Patient currently with DVT prophylaxis with Xarelto. Acute postoperative blood loss anemia, expected finding. -Hemoglobin stable at 11.6. Hypertension -Monitor vital signs and continue daily medication regimen with lisinopril Hyperlipidemia -Continue daily medication regimen with simvastatin. Hypothyroidism -Continue daily medication regimen with levothyroxine. Breast cancer Status post bilateral mastectomy with lymph node removal to left axillary region -No blood pressures are lab draws on left arm Thank you for allowing us to participate in the care of this pleasant patient. Do not hesitate to contact us with questions. Someone can be reached from the [facility] hospitalist group all hours of the day at [phone] or via [email or web address]. Objective - Vital Signs Vital signs: Vital Signs Temp 98.2 F 05/19/22 08:00 Pulse 95 05/19/22 08:00 Resp 16 05/19/22 08:00 BP 128/68 05/19/22 08:00 Pulse Ox 96 05/19/22 08:00 FiO2 Intake & Output 05/18/22 05/19/22 05/19/22 18:59 06:59 18:59 Intake Total 680 Balance 680 Intake: Oral 680 Other: Voiding Method Toilet Toilet Bedside Commode # Voids 3 2 - Labs CBC & Chem 7: 05/19/22 07:29 05/17/22 06:51
== END 2022-05-19 13:10 | disposition home health service (06) ==
LOC: OR 08:24 → 4SSUR 12:27 → OR 05-19 07:05 → 4SSUR 05-19 07:05
PROVIDERS: ADMIT Orthopaedic Surgery; ATTEND Orthopaedic Surgery
DX: M17.11 Unilateral primary osteoarthritis, right knee (principal); M79.7 Fibromyalgia; K21.9 Gastro-esophageal reflux disease without esophagitis; E78.5 Hyperlipidemia, unspecified; I10 Essential (primary) hypertension; N28.9 Disorder of kidney and ureter, unspecified; J44.9 Chronic obstructive pulmonary disease, unspecified; M25.761 Osteophyte, right knee; G47.33 Obstructive sleep apnea (adult) (pediatric); E03.9 Hypothyroidism, unspecified; Z86.19 Personal history of other infectious and parasitic diseases; Z85.3 Personal history of malignant neoplasm of breast; J32.9 Chronic sinusitis, unspecified; Z90.710 Acquired absence of both cervix and uterus; Z96.643 Presence of artificial hip joint, bilateral; Z96.612 Presence of left artificial shoulder joint; Z96.611 Presence of right artificial shoulder joint; Z90.13 Acquired absence of bilateral breasts and nipples; Z98.42 Cataract extraction status, left eye; Z98.41 Cataract extraction status, right eye; Z96.1 Presence of intraocular lens; Z98.890 Other specified postprocedural states; Z87.891 Personal history of nicotine dependence; Z80.49 Family history of malignant neoplasm of other genital organs; Z80.0 Family history of malignant neoplasm of digestive organs; Z82.49 Family history of ischemic heart disease and other diseases of the circulatory system; Z79.890 Hormone replacement therapy; Z79.899 Other long term (current) drug therapy; Z79.84 Long term (current) use of oral hypoglycemic drugs; Z88.6 Allergy status to analgesic agent; Z88.2 Allergy status to sulfonamides; Z91.09 Other allergy status, other than to drugs and biological substances
CPT/HCPCS: 97530; 97162; 64999; 64448; 76942; 88305; 80053; 83735; 85025 ×2; 88311; 73560; 71045; 27447; G0378; C1713 ×2; C1776; J2250 ×2; J0330; J1100; J0690 ×3; J2405; J3010 ×2; J2795 ×2; J2370; J2704; J1170; J2001

== ENCOUNTER → 2022-10-28 | Outpatient (CLI) | payer MEDICARE ==
--- NOTE | 2022-10-28 13:34 | BD ---
EXAMINATION TYPE: Axial Bone Density DATE OF EXAM: 10/28/2022 CLINICAL HISTORY: 67 years old Female. ICD-10 CODE: C50.112 CARCINOMA LT BREAST Height: 66in Weight: 231lb FRAX RISK QUESTIONS: History of Fracture in Adulthood: yes Secondary Osteoporosis: 3. Menopause before 45: yes RISK FACTORS HISTORY OF: Surgery to Spine/Hip(right/left)/Wrist (right/left): Román hip replacements When: 2011 Family History of Osteoporosis: yes Active: yes Postmenopausal woman: yes Take estrogen and/or progesterone medications: yes, none current How long: about 15 years Lost more than 2 inches in height since high school: yes MEDICATIONS: Prednisone or other steroids: inhaler as needed How Long: several years Thyroid Medications: Which medication: Synthroid How Lon years Osteoporosis Medications: Which medication: yes, but unsure which med How Lon years Additional Medications: caltrate, vitamin d, bp med, cholesterol med Additional History: román mastectomy 2008 EXAM MEASUREMENTS: Bone mineral densitometry was performed using the [employer] System. Bone mineral density as measured about the Lumbar spine is: ----- L1-L4(G/cm2): 0.966 T Score Values are as follows: ----- L1: -1.5 ----- L2: -2.0 ----- L3: -1.7 ----- L4: -2.0 ----- L1-L4: -1.8 Z Score Values are as follows: ----- L1: -1.0 ----- L2: -1.5 ----- L3: -1.2 ----- L4: -1.5 ----- L1-L4: -1.3 Bone mineral density has: Increased 6.6% since study of: 10-16-2020 Bone mineral density about the L Wrist (g/cm2): 0.514 T Score values are as follows: -----Dist. R+U: -2.2 -----Prox. R+U: -2.7 -----Radius total: -2.5 Z Score values are as follows: -----Dist. R+U: -0.4 -----Prox. R+U: -0.9 -----Radius total: -0.7 Bone mineral density has: Increased 6.7% since study of: 10-16-2020 IMPRESSION: Osteopenia (T Score between -2.5 and -1). There is slightly increased risk of fracture and the patient may be considered for treatment. Re-Screen 2-5 years. NOTE: T-SCORE=SD OF THE YOUNG ADULT MEAN.
== END | disposition home or self-care (01) ==
LOC: RADBDWWP 11:14
PROVIDERS: ATTEND Internal Medicine Hematology & Oncology
DX: M81.0 Age-related osteoporosis without current pathological fracture (principal); M85.89 Other specified disorders of bone density and structure, multiple sites; C50.112 Malignant neoplasm of central portion of left female breast; Z17.0 Estrogen receptor positive status [ER+]; F32.0 Major depressive disorder, single episode, mild; I10 Essential (primary) hypertension
CPT/HCPCS: 77080

== ENCOUNTER 2022-11-12 16:59 | Emergency (ER) | payer MEDICARE ==
[2022-11-12 17:19] VITALS: TEMP 98.3
--- NOTE | 2022-11-12 18:17 | ED ---
General Adult HPI - General Chief complaint: Recheck/Abnormal Lab/Rx Stated complaint: high blood pressure Time Seen by Provider: 11/12/22 18:17 Source: patient, RN notes reviewed Mode of arrival: ambulatory Limitations: no limitations - History of Present Illness Initial comments: Patient is a 67 year old female who presents to the emergency department for high blood pressure. Patient has history of hypertension. Patient states she had headache today refractory to her migraine medication so she checked her blood pressure. Her blood pressure was elevated in the 190s/100s. It is normally in the 140s/80s. Patient does have any chest pain or shortness of breath. No blurry vision or dizziness. No fever, chills, cold like symptoms. No recent falls or head trauma. No focal deficits or weakness. - Related Data Home Medications Medication Instructions Recorded Confirmed Fexofenadine/Pseudoephedrine 1 tab PO DAILY 12/29/14 11/12/22 [Calista-D 12 Hour Tablet] diphenhydrAMINE HCL [Benadryl] 25 mg PO HS 12/29/14 11/12/22 lisinopriL [Prinivil] 10 mg PO BID 12/29/14 11/12/22 DULoxetine HCL [Cymbalta] 60 mg PO BID 06/02/16 11/12/22 flaxseed oiL [Onsted-3 Flaxseed Oil] 1,000 mg PO HS 01/22/18 11/12/22 ALPRAZolam [Xanax] 0.25 mg PO Q12H PRN 05/06/19 11/12/22 Ascorbic Acid [Vitamin C] 500 mg PO BID 05/06/19 11/12/22 Calcium Carbonate/Vitamin D3 1 tab PO HS 05/06/19 11/12/22 [Caltrate 600 Plus D3 20 Mcg (800 Iu)] Multivit-Min/Iron/Folic/Lutein 1 tab PO DAILY 05/06/19 11/12/22 [Centrum Silver Women Tablet] Omeprazole 20 mg PO DAILY 05/06/19 11/12/22 Gabapentin 300 mg PO HS 05/14/22 11/12/22 HYDROcodone/APAP 7.5-325MG [Deposit 1 tab PO DAILY PRN 05/14/22 11/12/22 7.5-325] Montelukast Sodium [Singulair] 10 mg PO DAILY 05/14/22 11/12/22 Risedronate Sodium [Actonel] 150 mg PO Q30D 05/14/22 11/12/22 Rizatriptan Odt [Maxalt Executive Producer Promos] 5 mg PO BID PRN 05/14/22 11/12/22 metFORMIN HCL ER [Glucophage XR] 500 mg PO DAILY 05/14/22 11/12/22 Acetaminophen Tab [Tylenol Tab] 1,000 mg PO Q6HR PRN 11/12/22 11/12/22 Cholecalciferol [Vitamin D3 (125 125 mcg PO DAILY 11/12/22 11/12/22 Mcg = 5000 Iu)] Furosemide [Lasix] 20 mg PO DIRECTED 11/12/22 11/12/22 Levothyroxine Sodium [Synthroid] 100 mcg PO DIRECTED 11/12/22 11/12/22 Simvastatin [Zocor] 20 mg PO HS 11/12/22 11/12/22 Allergies Allergy/AdvReac Type Severity Reaction Status Date / Time adhesive tape Allergy irritates Verified 11/12/22 20:46 skin,"paper tape is ok" Sulfa (Sulfonamide Allergy Unknown Verified 11/12/22 20:46 Antibiotics) Childhood NSAIDS (Non-Steroidal AdvReac Causes Verified 11/12/22 20:46 Anti-Inflamma Kidney Failure Review of Systems ROS Statement: Those systems with pertinent positive or pertinent negative responses have been documented in the HPI. ROS Other: All systems not noted in ROS Statement are negative. Past Medical History Past Medical History: Cancer, Fibromyalgia, GERD/Reflux, Hyperlipidemia, Hypertension, Neurologic Disorder, Osteoarthritis (OA), Renal Disease, Sleep Apnea/CPAP/BIPAP, Supraventricular Tachycardia (SVT), Thyroid Disorder Additional Past Medical History / Comment(s): Peripheral neuropathy; Hepatitis C 1971; breast cancer 2008, MIGRAINES, SVT RESOLVED WITH ABLATION, , CHRONIC SINUSITIS AND ENVIRONMENTAL ALLERGIES, pt states she has had no significant issues with sleep apnea with wt loss. hasnt used bipap in 3 yrs. kidney issues since 2004 r/t NSAIDS. on metformin due to wt gain to help pt loose wt. + Covid 09/2021, History of Any Multi-Drug Resistant Organisms: None Reported Past Surgical History: Breast Surgery, Cardiac Ablation, EPS, Hysterectomy, Joint Replacement, Orthopedic Surgery, Tonsillectomy Additional Past Surgical History / Comment(s): Román hip replacement; breast implants; bilateral mastectomy. COLONOSCOPY, RT ROTATOR CUFF REPAIR, MOLE REMOVED FROM CHEECK , tls. bilateral shoulder replacement 2017.2019, bilateral cataracts with lenses 2019. rt eye surgery 2019 to remove something. had growth to right arm removed- benign Past Anesthesia/Blood Transfusion Reactions: Motion Sickness, Postoperative Nausea & Vomiting (PONV) Additional Past Anesthesia/Blood Transfusion Reaction / Comment(s): no hx blood transfusion. use patch behind her ear for nausea works well.( scope patch). blood pressure has dropped after hip surgery. Past Psychological History: Anxiety, Depression Smoking Status: Former smoker Past Alcohol Use History: None Reported Past Drug Use History: None Reported - Past Family History Sister(s) Family Medical History: Cancer Additional Family Medical History / Comment(s): breast and pancreas. another sister with uterus cancer aggressive. another sister had DVT Mother Family Medical History: Congestive Heart Failure (CHF) Father Family Medical History: Congestive Heart Failure (CHF), CVA/TIA General Exam - General Exam Comments Initial Comments: Visual Physical Exam Vital signs reviewed General: Well-appearing, nontoxic, no acute distress. Head: Normocephalic, atraumatic Eyes: PERRLA, EOMI ENT: Airway patent Chest: Nonlabored breathing Skin: No visual rash, normal skin tone Neuro: Alert and oriented 3 Musculoskeletal: No gross abnormalities Limitations: no limitations General appearance: alert, in no apparent distress Head exam: Present: atraumatic, normocephalic, normal inspection Neck exam: Present: normal inspection. Absent: tenderness, meningismus, lymphadenopathy Respiratory exam: Present: normal lung sounds bilaterally. Absent: respiratory distress, wheezes, rales, rhonchi, stridor Cardiovascular Exam: Present: regular rate, normal rhythm, normal heart sounds. Absent: systolic murmur, diastolic murmur, rubs, gallop, clicks GI/Abdominal exam: Present: soft, normal bowel sounds. Absent: distended, tenderness, guarding, rebound, rigid Neurological exam: Present: alert, oriented X3, CN II-XII intact Expanded Speech: Present: fluid speech Cranial nerves: Facial Sensation: Normal, Facial Palsy with Forehead Movement: Normal, Facial Palsy without Forehead Movement: Normal Cerebellar function: Finger to Nose: Normal, Heel to Faustin: Normal, Romberg: Normal Sensory exam: Upper Extremity Light Touch: Normal, Lower Extremity Light Touch: Normal Motor strength exam: RUE: 5, LUE: 5, RLE: 5, LLE: 5 Psychiatric exam: Present: normal affect, normal mood Skin exam: Present: warm, dry, intact, normal color. Absent: rash Course Vital Signs 11/12/22 11/12/22 11/12/22 17:16 21:44 22:46 Temperature 98.3 F Pulse Rate 95 64 70 Respiratory 18 14 16 Rate Blood Pressure 180/105 150/73 159/100 O2 Sat by Pulse 97 95 93 L Oximetry Medical Decision Making - Medical Decision Making EKG taken at 19:34, interpreted by me Sinus rhythm with occasional supraventricular premature complexes Ventricular rate 77, AZ interval 145, QRS duration 80, QTC 415 Was pt. sent in by a medical professional or institution ([facility], [employer], urgent care, hospital, or senior care...) When possible be specific @ -No Did you speak to anyone other than the patient for history (EMS, parent, family, police, friend...)? What history was obtained from this source @ -No Did you review nursing and triage notes (agree or disagree)? Why? @ -I reviewed and agree with nursing and triage notes Were old charts reviewed (outside hosp., previous admission, EMS record, old EKG, old radiological studies, urgent care reports/EKG's, senior care records)? Report findings @ -No old charts were reviewed Differential Diagnosis (chest pain, altered mental status, abdominal pain women, abdominal pain men, vaginal bleeding, weakness, fever, dyspnea, syncope, headache, dizziness, GI bleed, back pain, seizure, CVA, palpatations, mental health)? @ -Differential Headache: Migraine, tension, cluster, carbon monoxide, central venous thrombosis, pension karma temporal arteritis, acute closure glaucoma, intercranial hemorrhage, mastoiditis, sinusitis, head injury, this is not meant to be an all-inclusive list. EKG interpreted by me (3pts min.). @ -As above X-rays interpreted by me (1pt min.). @ -Yes, chest x-ray negative for acute process CT interpreted by me (1pt min.). @ -None done U/S interpreted by me (1pt. min.). @ -None done] What testing was considered but not performed or refused? (CT, X-rays, U/S, labs)? Why? @ -[None] What meds were considered but not given or refused? Why? @ -[None] Did you discuss the management of the patient with other professionals (professionals i.e. , PA, WING SCORER, lab, RT, psych nurse, social media content specialist, museum exhibit technician, teacher, global safety officer, rn case manager hospice)? Give summary @ -[No] Was smoking cessation discussed for >3mins.? @ -[No] Was critical care preformed (if so, how long)? @ -[No] Were there social determinants of health that impacted care today? How? (Homelessness, low income, unemployed, alcoholism, drug addiction, transportation, low edu. Level, literacy, decrease access to med. care, prison, rehab)? @ -[No] Was there de-escalation of care discussed even if they declined (Discuss DNR or withdrawal of care, Hospice)? DNR status @ -[No] What co-morbidities impacted this encounter? (DM, HTN, Smoking, COPD, CAD, Cancer, CVA, ARF, Chemo, Hep., AIDS, mental health diagnosis, sleep apnea, morbid obesity)? @ -[None] Was patient admitted / discharged? Hospital course, mention meds given and route, prescriptions, significant lab abnormalities, going to OR and other pertinent info. @ -Patient presenting with elevated blood pressure and headache. Blood pressure is 180/105. No chest pain, no shortness of breath. EKG shows sinus rhythm with occasional supraventricular premature complexes no evidence of acute ischemia. Laboratory studies obtained and are unremarkable. Chest x-ray negative for a cute process. Patient given large fluid bolus, migraine cocktail, IV labetalol. Her blood pressure improved however patient continued to have headache. There is no neurological deficit, fever, nausea, vomiting. Patient given 1 dose of Dilaudid with significant improvement of headache. Her blood pressure remained in acceptable limits. Patient will be discharged home she will continue to monitor her blood pressure and follow up with her primary care provider. Undiagnosed new problem with uncertain prognosis? @ -[No] Drug Therapy requiring intensive monitoring for toxicity (Heparin, Nitro, Insulin, Cardizem)? @ -[No] Were any procedures done? @ -[No] Diagnosis/symptom? @ -hypertension, headache Acute, or Chronic, or Acute on Chronic? @ -acute Uncomplicated (without systemic symptoms) or Complicated (systemic symptoms)? @ -uncomplicated Side effects of treatment? @ -[No] Exacerbation, Progression, or Severe Exacerbation? @ -[No] Poses a threat to life or bodily function? How? (Chest pain, USA, SD, pneumonia, PE, COPD, DKA, ARF, appy, cholecystitis, CVA, Diverticulitis, Homicidal, Suicidal, threat to staff... and all critical care pts) @ -[No] Dr. Nevarez is my attending - Lab Data Result diagrams: 11/12/22 19:40 11/12/22 19:40 Lab Results 11/12/22 11/12/22 Range/Units 19:40 19:40 WBC 6.6 (3.8-10.6) k/uL RBC 4.73 (3.80-5.40) m/uL Hgb 14.1 (11.4-16.0) gm/dL Hct 41.5 (34.0-46.0) % MCV 87.8 (80.0-100.0) fL MCH 29.8 (25.0-35.0) pg MCHC 33.9 (31.0-37.0) g/dL RDW 13.1 (11.5-15.5) % Plt Count 256 (150-450) k/uL MPV 7.3 Neutrophils % 59 % Lymphocytes % 30 % Monocytes % 6 % Eosinophils % 2 % Basophils % 1 % Neutrophils # 3.9 (1.3-7.7) k/uL Lymphocytes # 2.0 (1.0-4.8) k/uL Monocytes # 0.4 (0-1.0) k/uL Eosinophils # 0.1 (0-0.7) k/uL Basophils # 0.0 (0-0.2) k/uL Sodium 138 (137-145) mmol/L Potassium 4.8 (3.5-5.1) mmol/L Chloride 105 (98-107) mmol/L Carbon Dioxide 27 (22-30) mmol/L Anion Gap 6 mmol/L BUN 14 (7-17) mg/dL Creatinine 1.03 (0.52-1.04) mg/dL Est GFR (CKD-EPI)AfAm 64 (>60 ml/min/1.73 sqM) Est GFR (CKD-EPI)NonAf 56 (>60 ml/min/1.73 sqM) Glucose 83 (74-99) mg/dL Calcium 9.8 (8.4-10.2) mg/dL Total Bilirubin 0.6 (0.2-1.3) mg/dL AST 31 (14-36) U/L ALT 24 (4-34) U/L Alkaline Phosphatase 77 (38-126) U/L Total Protein 7.3 (6.3-8.2) g/dL Albumin 4.1 (3.5-5.0) g/dL Disposition Clinical Impression: Hypertension, Headache Disposition: HOME SELF-CARE Condition: Good Instructions (If sedation given, give patient instructions): Hypertension (ED) Additional Instructions: Continue to monitor blood pressure at home. Follow-up with primary care provider in one to 2 days. Return to emergency department if you experience new, concerning, or worsening symptoms. Is patient prescribed a controlled substance at d/c from ED?: No Referrals: Antonio Claire MD [Primary Care Provider] - 1-2 days
--- NOTE | 2022-11-12 18:38 | XR ---
EXAMINATION TYPE: XR chest 2V DATE OF EXAM: 11/12/2022 6:25 PM COMPARISON: Chest radiographs from 05/17/2022 TECHNIQUE: XR chest 2V Frontal and lateral views of the chest. CLINICAL INDICATION:Female, 67 years old with history of headache high blood pressure; FINDINGS: Lungs/Pleura: There is no evidence of pleural effusion, focal consolidation, or pneumothorax. Subarachnoid change. Pulmonary vascularity: Unremarkable. Heart/mediastinum: Cardiomediastinal silhouette is unremarkable. Atherosclerotic calcifications are seen in the aorta. Musculoskeletal: No acute osseous pathology. Mild degenerative changes of the thoracic spine. Bilater al shoulder prosthesis. IMPRESSION: No acute cardiopulmonary disease/process.
[2022-11-12] MEDS ORDERED: SODIUM CHLORIDE 0.9% 1,000 ML IV STA (19:30)
[2022-11-12] MEDS ORDERED: LABETALOL 5 MG/ML VIAL MDV IVP STA ×2 (19:56→21:08)
[2022-11-12] MEDS ORDERED: methylPREDNISolone SOD SUCCI 125 MG/2 ML VIAL IV STA (19:58)
[2022-11-12] MEDS ORDERED: diphenhydrAMINE 50 MG/ML 1 ML VIAL IVP STA (19:59)
[2022-11-12 20:12] LABS: Basophils % (A) 1 %; Eosinophils # (A) 0.1 k/uL (0-0.7); Eosinophils % (A) 2 %; HCT 41.5 % (34.0-46.0); HGB 14.1 gm/dL (11.4-16.0); Lymphocytes % (A) 30 %; MCH 29.8 pg (25.0-35.0); MCHC 33.9 g/dL (31.0-37.0); MCV 87.8 fL (80.0-100.0); Mean Platelet Volume 7.3; Monocytes # (A) 0.4 k/uL (0-1.0); Monocytes % (A) 6 %; Neutrophils # (A) 3.9 k/uL (1.3-7.7); Neutrophils % (A) 59 %; Platelet Count 256 k/uL (150-450); RBC 4.73 m/uL (3.80-5.40); RDW 13.1 % (11.5-15.5); WBC 6.6 k/uL (3.8-10.6)
[2022-11-12 20:25] LABS: Albumin 4.1 g/dL (3.5-5.0); Calcium 9.8 mg/dL (8.4-10.2); Potassium 4.8 mmol/L (3.5-5.1); Total Bilirubin 0.6 mg/dL (0.2-1.3); Total Protein 7.3 g/dL (6.3-8.2)
[2022-11-12] MEDS ORDERED: HYDROmorphone 0.5 MG/0.5 ML SYRINGE IVP STA (21:33)
[2022-11-12 22:47] VITALS: BP 159/100; PULSE 70; RESP 16
== END 2022-11-12 22:49 | disposition home or self-care (01) ==
LOC: EC 16:59
DX: I10 Essential (primary) hypertension (principal); R51.9 Headache, unspecified; K21.9 Gastro-esophageal reflux disease without esophagitis; E78.5 Hyperlipidemia, unspecified; M19.90 Unspecified osteoarthritis, unspecified site; E07.9 Disorder of thyroid, unspecified; F41.9 Anxiety disorder, unspecified; F32.A Depression, unspecified; Z87.891 Personal history of nicotine dependence; Z88.2 Allergy status to sulfonamides; Z88.6 Allergy status to analgesic agent; Z91.048 Other nonmedicinal substance allergy status; Z79.84 Long term (current) use of oral hypoglycemic drugs; Z79.890 Hormone replacement therapy; Z79.899 Other long term (current) drug therapy
CPT/HCPCS: 36415; 93005; 80053; 85025; 71046; 99284; 96374; 96375 ×3; 96361 ×3; J1200; J2930; J1170

== ENCOUNTER → 2023-05-07 | Outpatient (CLI) | payer MEDICARE ==
--- NOTE | 2023-05-07 12:04 | NM ---
EXAMINATION TYPE: NM stress cardiolite complete DATE OF EXAM: 05/07/2023 COMPARISON: NONE CLINICAL INDICATION: Female, 68 years old with history of R06.09 dyspnea; TECHNIQUE: After the intravenous administration of 9.6 mCi Tc 99m Sestamibi - Rest images obtained 4 5 minutes post injection. The patient exercised using a NAPOLEON protocol and 1 minute prior to peak e xercise was injected with 24.1 mCi Tc 99m Sestamibi - Stress images obtained 30 minutes post injectio n. FINDINGS: Targeted heart rate was achieved during performance of the study. Review of stress and rest SPECT collette ges demonstrates no distinct perfusion abnormality. Gated analysis shows normal wall motion with an estimated left ventricular ejection fraction of 67 %. IMPRESSION: No scintigraphic evidence for reversible ischemia
--- NOTE | 2023-05-07 20:23 | CA ---
Exercise Nuclear Stress Test Report Name: Chela Person Exam Date: 05/07/2023 10:27 Exam Location: [place] Stress Ht (in): 67 Wt (lb): 225 BSA: 2.13 Ordering Phys: Antonio Claire MD Referring Phys: ALENA,, Technologist: FIDE,, Age: 68 Gender: F : 1955 Procedure CPT: Indications: R06.09 Dyspnea ICD-10 Codes: Patient History: Dyspnea Medications: Meds past 24 hrs: Pretest Chest Pain: STRESS TEST Sachin Protocol Exercise Duration (min:sec): 04:[address] Depressions (mm): Angina Score: Lim Score: Resting HR (bpm): 71 Peak HR (bpm): 137 Resting BP (mmHg): 149 / 82 Peak BP (mmHg): 198 / 88 MPHR: 150 Target HR: 128 % MPHR: 91 METS: 6.5 Total Dose: Peak Dose: Atropine: Double Product: 94586 BP Response: Stress Termination: Reached target heart rate Stress Symptoms: Dyspnea Stress Summary: ECG ANALYSIS Resting ECG: Stress ECG: CONCLUSIONS Baseline heart is 71 beats a minute, Baseline blood pressure 149/80 mmHg Patient became short of breath during exercise stress test and was able to exercise for only 4 minutes of a Sachin protocol No ECG evidence for ischemia or arrhythmia at this low workload level Dr. Scotty Quevedo MD (Electronically Signed) Final Date: 07 May 2023 20:22
== END | disposition home or self-care (01) ==
LOC: RADNMMAIN 09:02
PROVIDERS: ATTEND Family Medicine
DX: R06.09 Other forms of dyspnea (principal)
CPT/HCPCS: 93017; 78452; A9500

== ENCOUNTER 2024-05-30 18:32 | Emergency (ER) | payer MEDICARE ==
[2024-05-30 18:59] VITALS: RESP 18; TEMP 97.9
[2024-05-30 19:53] LABS: Basophils # (A) 0.1 k/uL (0-0.2); Basophils % (A) 1 %; Eosinophils # (A) 0.1 k/uL (0-0.7); Eosinophils % (A) 1 %; HCT 41.8 % (34.0-46.0); HGB 13.8 gm/dL (11.4-16.0); Lymphocytes # (A) 1.8 k/uL (1.0-4.8); Lymphocytes % (A) 18 %; MCH 29.6 pg (25.0-35.0); MCHC 32.9 g/dL (31.0-37.0); Mean Platelet Volume 7.3; Monocytes # (A) 0.5 k/uL (0-1.0); Monocytes % (A) 5 %; Neutrophils # (A) 7.3 k/uL (1.3-7.7); Neutrophils % (A) 73 %; Platelet Count 331 k/uL (150-450); RBC 4.64 m/uL (3.80-5.40); RDW 12.7 % (11.5-15.5); WBC 10.1 k/uL (3.8-10.6)
[2024-05-30] MEDS: MECLIZINE 25 MG TAB PO STA (19:56)
[2024-05-30] MEDS: SODIUM CHLORIDE 0.9% 500 ML 500 ML IV STA (19:57)
--- NOTE | 2024-05-30 20:04 | CT ---
EXAMINATION TYPE: CT brain wo con DATE OF EXAM: 05/30/2024 7:53 PM COMPARISON: 01/22/2018. CLINICAL INDICATION: Female, 69 years old with history of Dizziness, Dizziness. TECHNIQUE: Brain: Axial CT images of the brain were obtained with coronal and sagittal reformats created and rev iewed. Contrast used: None. Oral contrast used: None. CT DLP: 1154.6 mGycm, Automated exposure control for dose reduction was used. FINDINGS: Brain: Extra-axial spaces: No abnormal extra-axial fluid collections. Ventricular system: Within normal limits Cerebral parenchyma: No acute intraparenchymal hemorrhage or mass effect. The mendieta-white junction is well differentiated. Cerebellum: Unremarkable. Mass effect: No evidence of midline shift. Intracranial vasculature: unremarkable Soft tissues: Normal. Calvarium/osseous structures: No depressed skull fracture. Paranasal sinuses and mastoid air cells: Mild scattered paranasal sinus disease. Visualized orbits: Bilateral aphakia IMPRESSION: No acute intracranial process. [facility], , 05/30/2024 8:02 PM
[2024-05-30 20:08] LABS: ALT 23 U/L (4-34); AST 33 U/L (14-36); African American GFR (CKD) 50 (>60 ml/min/1.73 sqM); Albumin 4.3 g/dL (3.5-5.0); Alkaline Phosphatase 66 U/L (38-126); Anion Gap 8 mmol/L; Blood Urea Nitrogen 22 mg/dL (7-17); Calcium 9.5 mg/dL (8.4-10.2); Carbon Dioxide 25 mmol/L (22-30); Chloride 102 mmol/L (98-107); Glucose 102 mg/dL (74-99); Magnesium 1.9 mg/dL (1.6-2.3); Non-African American GFR(CKD) 43 (>60 ml/min/1.73 sqM); Potassium 4.5 mmol/L (3.5-5.1); Sodium 135 mmol/L (137-145); Total Bilirubin 0.6 mg/dL (0.2-1.3); Total Protein 7.2 g/dL (6.3-8.2)
[2024-05-30 20:23] VITALS: BP 136/88; PULSE 68
--- NOTE | 2024-05-30 20:30 | ED ---
General Adult HPI - General Chief complaint: Dizziness Stated complaint: dizzy/nausea Time Seen by Provider: 05/30/24 19:00 Source: patient, RN notes reviewed, old records reviewed Mode of arrival: ambulatory Limitations: no limitations - History of Present Illness Initial comments: This 69-year-old female who presents to the emergency department patient states that she is extremely dizzy. Patient states moving her head makes it worse. Patient states she was recently being treated for a UTI but she feels as though her symptoms are much improved there. Patient states she also recently had diarrhea but her symptoms are improving as well. Patient denies chest pain palpitations or difficulty breathing. Patient has a headache patient has numbness weakness. Patient has abdominal pain. Patient denies any other symptoms at this time. - Related Data Home Medications Medication Instructions Recorded Confirmed Fexofenadine/Pseudoephedrine 1 tab PO DAILY 12/29/14 11/12/22 [Calista-D 12 Hour Tablet] diphenhydrAMINE HCL [Benadryl] 25 mg PO HS 12/29/14 11/12/22 lisinopriL [Prinivil] 10 mg PO BID 12/29/14 11/12/22 DULoxetine HCL [Cymbalta] 60 mg PO BID 06/02/16 11/12/22 flaxseed oiL [[place]-3 Flaxseed Oil] 1,000 mg PO HS 01/22/18 11/12/22 ALPRAZolam [Xanax] 0.25 mg PO Q12H PRN 05/06/19 11/12/22 Ascorbic Acid [Vitamin C] 500 mg PO BID 05/06/19 11/12/22 Calcium Carbonate/Vitamin D3 1 tab PO HS 05/06/19 11/12/22 [Caltrate 600 Plus D3 20 Mcg (800 Iu)] Multivit-Min/Iron/Folic/Lutein 1 tab PO DAILY 05/06/19 11/12/22 [Centrum Silver Women Tablet] Omeprazole 20 mg PO DAILY 05/06/19 11/12/22 Gabapentin 300 mg PO HS 05/14/22 11/12/22 HYDROcodone/APAP 7.5-325MG [[place] 1 tab PO DAILY PRN 05/14/22 11/12/22 7.5-325] Montelukast Sodium [Singulair] 10 mg PO DAILY 05/14/22 11/12/22 Risedronate Sodium [Actonel] 150 mg PO Q30D 05/14/22 11/12/22 Rizatriptan Odt [Maxalt Litigation Specialist] 5 mg PO BID PRN 05/14/22 11/12/22 metFORMIN HCL ER [Glucophage XR] 500 mg PO DAILY 05/14/22 11/12/22 Acetaminophen Tab [Tylenol Tab] 1,000 mg PO Q6HR PRN 11/12/22 11/12/22 Cholecalciferol [Vitamin D3 (125 125 mcg PO DAILY 11/12/22 11/12/22 Mcg = 5000 Iu)] Furosemide [Lasix] 20 mg PO DIRECTED 11/12/22 11/12/22 Levothyroxine Sodium [Synthroid] 100 mcg PO DIRECTED 11/12/22 11/12/22 Simvastatin [Zocor] 20 mg PO HS 11/12/22 11/12/22 Previous Rx's Medication Instructions Recorded Meclizine [Antivert] 25 mg PO TID #20 tab 05/30/24 Allergies Allergy/AdvReac Type Severity Reaction Status Date / Time adhesive tape Allergy irritates Verified 05/30/24 18:59 skin,"paper tape is ok" Sulfa (Sulfonamide Allergy Unknown Verified 05/30/24 18:59 Antibiotics) Childhood NSAIDS (Non-Steroidal AdvReac Causes Verified 05/30/24 18:59 Anti-Inflamma Kidney Failure Review of Systems ROS Statement: Those systems with pertinent positive or pertinent negative responses have been documented in the HPI. ROS Other: All systems not noted in ROS Statement are negative. Past Medical History Past Medical History: Cancer, Fibromyalgia, GERD/Reflux, Hyperlipidemia, Hypertension, Neurologic Disorder, Osteoarthritis (OA), Renal Disease, Sleep Apnea/CPAP/BIPAP, Supraventricular Tachycardia (SVT), Thyroid Disorder Additional Past Medical History / Comment(s): Peripheral neuropathy; Hepatitis C 1971; breast cancer 2008, MIGRAINES, SVT RESOLVED WITH ABLATION, , CHRONIC SINUSITIS AND ENVIRONMENTAL ALLERGIES, pt states she has had no significant issues with sleep apnea with wt loss. hasnt used bipap in 3 yrs. kidney issues since 2004 r/t NSAIDS. on metformin due to wt gain to help pt loose wt. + Covid 09/2021, History of Any Multi-Drug Resistant Organisms: None Reported Past Surgical History: Breast Surgery, Cardiac Ablation, EPS, Hysterectomy, Joint Replacement, Orthopedic Surgery, Tonsillectomy Additional Past Surgical History / Comment(s): Román hip replacement; breast implants; bilateral mastectomy. COLONOSCOPY, RT ROTATOR CUFF REPAIR, [facility], tls. bilateral shoulder replacement 2017.2019, bilateral cataracts with lenses 2019. rt eye surgery 2019 to remove something. had growth to right arm removed- benign Past Anesthesia/Blood Transfusion Reactions: Motion Sickness, Postoperative Nausea & Vomiting (PONV) Additional Past Anesthesia/Blood Transfusion Reaction / Comment(s): no hx blood transfusion. use patch behind her ear for nausea works well.( scope patch). blood pressure has dropped after hip surgery. Past Psychological History: Anxiety, Depression Smoking Status: Former smoker Past Alcohol Use History: Daily Past Drug Use History: None Reported - Past Family History Sister(s) Family Medical History: Cancer Additional Family Medical History / Comment(s): breast and pancreas. another sister with uterus cancer aggressive. another sister had DVT Mother Family Medical History: Congestive Heart Failure (CHF) Father Family Medical History: Congestive Heart Failure (CHF), CVA/TIA General Exam - General Exam Comments Initial Comments: GENERAL: Patient is well-developed and well-nourished. Patient is nontoxic and well- hydrated and is in mild distress. ENT: Neck is soft and supple. No significant lymphadenopathy is noted. Oropharynx is clear. Moist mucous membranes. Neck has full range of motion without eliciting any pain. EYES: The sclera were anicteric and conjunctiva were pink and moist. Extraocular movements were intact and pupils were equal round and reactive to light. Eyelids were unremarkable. PULMONARY: Unlabored respirations. Good breath sounds bilaterally. No audible rales rhonchi or wheezing was noted. CARDIOVASCULAR: There is a regular rate and rhythm without any murmurs gallops or rubs. ABDOMEN: Soft and nontender with normal bowel sounds. SKIN: Skin is clear with no lesions or rashes and otherwise unremarkable. NEUROLOGIC: Patient is alert and oriented x3. Cranial nerves II through XII are grossly intact. Motor and sensory are also intact. Normal speech, volume and content. Symmetrical smile. Nose testing was normal bilaterally MUSCULOSKELETAL: Normal extremities with adequate strength and full range of motion. No lower extremity swelling or edema. No calf tenderness. LYMPHATICS: No significant lymphadenopathy is noted PSYCHIATRIC: Normal psychiatric evaluation. Limitations: no limitations Course Vital Signs 05/30/24 05/30/24 18:55 20:22 Temperature 97.9 F Pulse Rate 89 68 Respiratory 18 18 Rate Blood Pressure 148/94 136/88 O2 Sat by Pulse 96 95 Oximetry Medical Decision Making - Medical Decision Making EKG is interpreted by myself but EKG shows a sinus rhythm at 70 bpm [place] interval is 148 QRS is 98 QT interval is 408 QTc is 428. Patient's EKG shows no ST segment elevation however does show a PAC Was pt. sent in by a medical professional or institution (, SOFÍA, HAIRSPRING TRUING INSPECTOR, urgent care, hospital, or [facility]...) When possible be specific @ -No Did you speak to anyone other than the patient for history (EMS, parent, family, police, friend...)? What history was obtained from this source @ -No Did you review nursing and triage notes (agree or disagree)? Why? @ -I reviewed and agree with nursing and triage notes Were old charts reviewed (outside hosp., previous admission, EMS record, old EKG, old radiological studies, urgent care reports/EKG's, [facility] records)? Report findings @ -No old charts were reviewed Differential Diagnosis? @ -Differential dizziness EKG interpreted by me (3pts min.). @ -As above X-rays interpreted by me (1pt min.). @ -None CT interpreted by me (1pt min.). @ -CT of the brain shows no acute abnormality U/S interpreted by me (1pt. min.). @ -None done What testing was considered but not performed or refused? (CT, X-rays, U/S, labs)? Why? @ -None What meds were considered but not given or refused? Why? @ -None Did you discuss the management of the patient with other professionals (terrell longo i.e. SOFÍA Gamez, HAIRSPRING TRUING INSPECTOR, lab, RT, psych nurse, social work instructor, fashion patternmaker, teacher, agricultural technical officer, piano case maker)? Give summary @ -No Was smoking cessation discussed for >3mins.? @ -No Was critical care preformed (if so, how long)? @ -No Were there social determinants of health that impacted care today? How? (Homelessness, low income, unemployed, alcoholism, drug addiction, transportation, low edu. Level, literacy, decrease access to med. care, alf, rehab)? @ -No Was there de-escalation of care discussed even if they declined (Discuss DNR or withdrawal of care, Hospice)? DNR status @ -No What co-morbidities impacted this encounter? (DM, HTN, Smoking, COPD, CAD, Cancer, CVA, ARF, Chemo, Hep., AIDS, mental health diagnosis, sleep apnea, morbid obesity)? @ -None Was patient admitted / discharged? Hospital course, mention meds given and route, prescriptions, significant lab abnormalities, going to OR and other pertinent info. @ -Patient received Valium and Antivert in the emergency department was feeling considerably better lab work was within normal range as were the radiological studies patient will go home with Antivert. Undiagnosed new problem with uncertain prognosis? @ -No Drug Therapy requiring intensive monitoring for toxicity (Heparin, Nitro, Insulin, Cardizem)? @ -No Were any procedures done? @ -No Diagnosis/symptom? @ -Vertigo Acute, or Chronic, or Acute on Chronic? @ -Acute Uncomplicated (without systemic symptoms) or Complicated (systemic symptoms)? @ -Comp Side effects of treatment? @ -No Exacerbation, Progression, or Severe Exacerbation? @ -No Poses a threat to life or bodily function? How? (Chest pain, [place], [place], pneumonia, PE, COPD, DKA, ARF, appy, cholecystitis, CVA, Diverticulitis, Homicidal, Suicidal, threat to staff... and all critical care pts) @ -No - Lab Data Result diagrams: 05/30/24 19:40 05/30/24 19:40 Lab Results 05/30/24 05/30/24 Range/Units 19:40 19:40 WBC 10.1 (3.8-10.6) k/uL RBC 4.64 (3.80-5.40) m/uL Hgb 13.8 (11.4-16.0) gm/dL Hct 41.8 (34.0-46.0) % MCV 90.0 (80.0-100.0) fL MCH 29.6 (25.0-35.0) pg MCHC 32.9 (31.0-37.0) g/dL RDW 12.7 (11.5-15.5) % Plt Count 331 (150-450) k/uL MPV 7.3 Neutrophils % 73 % Lymphocytes % 18 % Monocytes % 5 % Eosinophils % 1 % Basophils % 1 % Neutrophils # 7.3 (1.3-7.7) k/uL Lymphocytes # 1.8 (1.0-4.8) k/uL Monocytes # 0.5 (0-1.0) k/uL Eosinophils # 0.1 (0-0.7) k/uL Basophils # 0.1 (0-0.2) k/uL Sodium 135 L (137-145) mmol/L Potassium 4.5 (3.5-5.1) mmol/L Chloride 102 (98-107) mmol/L Carbon Dioxide 25 (22-30) mmol/L Anion Gap 8 mmol/L BUN 22 H (7-17) mg/dL Creatinine 1.26 H (0.52-1.04) mg/dL Est GFR (CKD-EPI)AfAm 50 (>60 ml/min/1.73 sqM) Est GFR (CKD-EPI)NonAf 43 (>60 ml/min/1.73 sqM) Glucose 102 H (74-99) mg/dL Calcium 9.5 (8.4-10.2) mg/dL Magnesium 1.9 (1.6-2.3) mg/dL Total Bilirubin 0.6 (0.2-1.3) mg/dL AST 33 (14-36) U/L ALT 23 (4-34) U/L Alkaline Phosphatase 66 (38-126) U/L Total Protein 7.2 (6.3-8.2) g/dL Albumin 4.3 (3.5-5.0) g/dL Disposition Clinical Impression: Vertigo Disposition: HOME SELF-CARE Condition: Good Instructions (If sedation given, give patient instructions): Vertigo (ED) Prescriptions: Meclizine [Antivert] 25 mg PO TID #20 tab Is patient prescribed a controlled substance at d/c from ED?: No Referrals: Antonio Claire MD [Primary Care Provider] - 1-2 days Time of Disposition: 20:29
== END 2024-05-30 20:57 | disposition home or self-care (01) ==
LOC: EC 18:32
DX: R42 Dizziness and giddiness (principal); Z87.891 Personal history of nicotine dependence; Z88.1 Allergy status to other antibiotic agents; Z88.2 Allergy status to sulfonamides; Z88.6 Allergy status to analgesic agent; Z86.16 Personal history of COVID-19
CPT/HCPCS: 36415; 93005; 80053; 83735; 85025; 70450; 99284; 96374; J3360

== ENCOUNTER → 2024-06-10 | Day surgery (SDC) | payer MEDICARE ==
[2024-06-09 15:21] VITALS: BMI 36.8
[~2024-06-10] MED LIST changes: -ACETAMINOPHEN TAB 500 MG TAB PO PRN; -DEXAMETHASONE SOD PHOSPHATE 4 MG/ML 1 ML VIAL IV ONE; -HYDROmorphone 0.5 MG/0.5 ML SYRINGE IVP PRN; -MELOXICAM 7.5 MG TAB PO PRN; -MIDAZOLAM 2 MG/2 ML VIAL IV PRN; -ONDANSETRON 4 MG/2 ML VIAL IVP ONE; +PROPOFOL 10 MG/ML 20 ML VIAL IV ONE; -TRANEXAMIC ACID IN NACL,ISO-OS 1,000 MG in SALINE 1 100ML.BAG IVPB PRN
[2024-06-10] MEDS: IV FLUID CONTINUATION 1,000 ML IV ONE (15:54)
[2024-06-10 15:57] VITALS: TEMP 97.1
[2024-06-10] MEDS: LACTATED RINGERS 1,000 ML IV SCH (16:04)
--- NOTE | 2024-06-10 16:35 | P.PCN ---
Date of Procedure: 06/10/24 Procedure(s) Performed: BRIEF HISTORY: Patient is a 69-year-old pleasant white female scheduled for an elective colonoscopy as a part of evaluation by history of colon polyps. Last colonoscopy was 5 years ago PROCEDURE PERFORMED: Colonoscopy with cold snare polypectomy. PREOPERATIVE DIAGNOSIS: History of colon polyps. IV sedation per Anesthesia. PROCEDURE: After informed consent was obtained, the patient, was brought into the endoscopy unit. IV sedation was administered by Anesthesia under continuous monitoring. Digital rectal examination was normal. Initially the Olympus CF-160 flexible video colonoscope was then inserted in the rectum, gradually advanced into the cecum without any difficulty. Careful examination was performed as the scope was gradually being withdrawn. Ileocecal valve and the appendiceal orifice were visualized and appeared normal. Prep was fair.. Mucosa of the cecum, normal. In the ascending colon there was a 7 mm polyp that was removed by cold snare polypectomy. Rest of the ascending colon, transverse colon, descending colon, sigmoid colon, and rectum appeared normal. Scattered sigmoid diverticulosis. Retroflexion was performed in the rectum and no lesions were seen. The patient tolerated the procedure well. IMPRESSION: 7 mm ascending colon polyp status post cold snare polypectomy Scattered sigmoid diverticulosis. RECOMMENDATIONS: Findings of this examination were discussed with the patient as well as her family. She was advised to follow-up with the biopsy results. If the biopsy reveals adenoma she can have repeat colonoscopy in 5 years..
[2024-06-10 16:53] VITALS: BP 107/68; PULSE 84; RESP 16
== END ==
LOC: ORWHC2ENDO 14:56
PROVIDERS: ATTEND Internal Medicine Gastroenterology
DX: D12.2 Benign neoplasm of ascending colon (principal); K57.30 Diverticulosis of large intestine without perforation or abscess without bleeding; I10 Essential (primary) hypertension; E78.5 Hyperlipidemia, unspecified; J45.909 Unspecified asthma, uncomplicated; E07.9 Disorder of thyroid, unspecified; K21.9 Gastro-esophageal reflux disease without esophagitis; G47.33 Obstructive sleep apnea (adult) (pediatric); B34.9 Viral infection, unspecified; L23.1 Allergic contact dermatitis due to adhesives; Z88.2 Allergy status to sulfonamides; Z79.02 Long term (current) use of antithrombotics/antiplatelets; Z79.899 Other long term (current) drug therapy; Z79.890 Hormone replacement therapy
CPT/HCPCS: 88305; 45385; J2704

== ENCOUNTER → 2025-02-16 | Outpatient (CLI) | payer MEDICARE ==
--- NOTE | 2025-02-16 12:48 | BD ---
EXAMINATION TYPE: Axial Bone Density DATE OF EXAM: 02/16/2025 CLINICAL HISTORY: 69 years old Female. ICD-10 CODE: M85.88 OTH SPEC DISORDERS OF BONE DENSITY , Kurt tional History: Nuclear Medicine Study in the last 2 weeks: Barium Study in the last week: : Height: Weight: FRAX RISK QUESTIONS: Glucocorticoids (More than 3mos): yes, trellagy, for lungs, and rescue (Ex: prednisone, prednisolone, methylprednisolone, dexamethasone, and hydrocortisone). History of Fracture in Adulthood: yes Secondary Osteoporosis: yes 3. Menopause before 45: yes, total at 35 yrs old RISK FACTORS HISTORY OF: hx of elbow fracture, right Surgery to Spine/Hip bilat hip replacements, 2010, 2011 MEDICATIONS: bp meds, cholesterol meds, vit d and calcium Thyroid Medications: yes, synthroid, for about 30+ yrs Osteoporosis Medications: actenol, monthly, for 2 yrs EXAM MEASUREMENTS: Bone mineral densitometry was performed using the [employer]. Bone mineral density as measured about the Lumbar spine is: ----- L1-L4(G/cm2): 0.979 T Score Values are as follows: ----- L1: -2.0 ----- L2: -1.4 ----- L3: -1.6 ----- L4: -1.8 ----- L1-L4: -1.7 Z Score Values are as follows: ----- L1: -1.5 ----- L2: -0.9 ----- L3: -1.1 ----- L4: -1.2 ----- L1-L4: -1.1 Bone mineral density has: Increased 1.3% since study of: 10.28.2022 Bone mineral density about the L Wrist (g/cm2): 0.500 T Score values are as follows: -----Dist. R+U: -1.5 -----Prox. R+U: -2.6 -----Radius total: -2.8 Z Score values are as follows: -----Dist. R+U: 0.5 -----Prox. R+U: -0.6 -----Radius total: -0.8 Bone mineral density has: Increased 1.6% since study of: 10.28.2022 no frax IMPRESSION: Osteoporosis (T Score less than -2.5). There is increased fracture risk and therapy is usually indicated based on age. Re-Screen 1-2 years. NOTE: T-SCORE=SD OF THE YOUNG ADULT MEAN. [facility], Workstation: 3, 02/16/2025 12:46 PM
== END | disposition home or self-care (01) ==
LOC: RADBDWWP 07:16
PROVIDERS: ATTEND Family Medicine
DX: M81.0 Age-related osteoporosis without current pathological fracture (principal); M85.89 Other specified disorders of bone density and structure, multiple sites
CPT/HCPCS: 77080